=== PATIENT | male | born 1955 | race Caucasian/White ===

== ENCOUNTER 2017-04-19 04:20 | Emergency (ER) | payer BC, OTHER ==
[2017-04-19] MEDS ORDERED: RX INFO: IV CONTRAST WAS GIVEN 1 EACH MISC MISCELLANE PRN (05:27)
[2017-04-19] MEDS ORDERED: IBUPROFEN 400 MG TAB PO STA (05:40)
--- NOTE | 2017-04-19 05:42 | XR ---
EXAM: XR Right Knee, 3 views CLINICAL HISTORY: Reason: Pain TECHNIQUE: Three views of the right knee. COMPARISON: No relevant prior studies available. FINDINGS: Bones/joints: Unremarkable. No acute fracture. No dislocation. Soft tissues: Unremarkable. IMPRESSION: Normal right knee x-rays.
[2017-04-19 05:46] LABS: Basophils % (A) 1 %; CH 30.2; CHCM 33.9; Eosinophils # (A) 0.3 k/uL (0-0.7); Eosinophils % (A) 4 %; HCT 42.9 % (39.0-53.0); HDW 2.84; HGB 15.1 gm/dL (13.0-17.5); Luc # (Auto) 0.14; Luc % (Auto) 2; Lymphocytes # (A) 1.2 k/uL (1.0-4.8); Lymphocytes % (A) 18 %; MCH 31.5 pg (25.0-35.0); MCHC 35.1 g/dL (31.0-37.0); MCV 89.6 fL (80.0-100.0); Mean Platelet Volume 7.9; Monocytes # (A) 0.5 k/uL (0-1.0); Monocytes % (A) 7 %; Neutrophils # (A) 4.4 k/uL (1.3-7.7); Neutrophils % (A) 68 %; RBC 4.79 m/uL (4.30-5.90); RDW 13.8 % (11.5-15.5); WBC 6.5 k/uL (3.8-10.6); WBC (Perox) 6.37
--- NOTE | 2017-04-19 05:49 | XR ---
EXAM: XR Lumbar Spine, 2 or 3 Views CLINICAL HISTORY: Reason: Pain TECHNIQUE: Frontal and lateral views of the lumbar spine. COMPARISON: 07/12/2015. FINDINGS: There is no evidence of an acute compression fracture. The vertebral bodies appear intact. Loss of height at the L4-L5 and L5-S1 intervertebral disc spaces is again seen with vacuum phenomenon, essentially unchanged. Previously noted anterolisthesis of L4 on L5 on the prior study is not evident on this study. Sclerosis and hypertrophic changes involve the posterior facets throughout the lower lumbar spine and lumbosacral junction. Multiple syndesmophytes are again also seen projecting anteriorly throughout the lumbar spine, interval worsening since prior study. DISH would be included in the differential. IMPRESSION: 1. No evidence of acute injury. 2. Loss of height and vacuum phenomenon is again seen at L4-L5 and L5-S1. 3. Previously seen anterolisthesis of L4 on L5 is not evident on this study. 4. Multiple syndesmophytes projecting anteriorly throughout the lumbar spine, interval worsening since prior study. DISH would be included in the differential.
--- NOTE | 2017-04-19 05:53 | XR ---
EXAM: XR Right Wrist Complete, 3 or More Views CLINICAL HISTORY: Reason: Pain TECHNIQUE: Frontal, lateral and oblique views of the right wrist. COMPARISON: No relevant prior studies available. FINDINGS: Bones/joints: 2 tiny ossified lesions are seen adjacent to the ulnar styloid process, likely representing prior ulnar styloid fractures. No acute fracture. No dislocation. Mild degenerative changes are seen at the radiocarpal joint. Soft tissues: Mild overlying soft tissue swelling is suggested. No radiopaque foreign body. IMPRESSION: No evidence of acute osseous injury. Mild overlying soft tissue swelling suggested. Other chronic findings, as above.
[2017-04-19 05:59] LABS: Anion Gap 9 mmol/L; Blood Urea Nitrogen 14 mg/dL (9-20); Calcium 8.6 mg/dL (8.4-10.2); Carbon Dioxide 24 mmol/L (22-30); Chloride 106 mmol/L (98-107); Glucose 114 mg/dL (74-99); Non-African American GFR(MDRD) >60 (>60 ml/min/1.73 sqM); Potassium 4.3 mmol/L (3.5-5.1); Sodium 139 mmol/L (137-145)
--- NOTE | 2017-04-19 07:52 | CT ---
EXAMINATION TYPE: CT abdomen pelvis w con DATE OF EXAM: 04/19/2017 COMPARISON: NONE HISTORY: Fall and right groin pain. Back pain. History of appendectomy and cholecystectomy. CT DLP: 2726.9 mGycm Automated exposure control for dose reduction was used. TECHNIQUE: Helical acquisition of images was performed from the lung bases through the pelvis. CONTRAST: Performed without Oral Contrast and with IV Contrast, patient injected with 100 mL mL of Omnipaque 30 0. FINDINGS: LUNG BASES: Subsegmental bibasilar atelectasis is present. LIVER/GB: Gallbladder is surgically absent. PANCREAS: Fat stranding is seen around the root of the mesentery, celiac axis, and to a lesser degree around the pancreas.. SPLEEN: Spleen is enlarged measuring 20.1 cm in anterior posterior dimension. ADRENALS: No significant abnormality is seen. KIDNEYS: 1.3 cm right midpole renal cyst, exophytic right upper pole 1.3 cm low-density renal cyst ve rsus angiomyolipoma, and right lower pole 8 mm lesion that is too small to accurately characterize ar e seen. Left 9 mm renal lesion is also too small to accurately characterize although suggestive of a cyst as is a low density midpole lesion on the left. FREE AIR: No free air is visualized. ABDOMINAL ADENOPATHY: Single prominent pericaval lymph node is present without pathologic enlargemen t. REPRODUCTIVE ORGANS: No significant abnormality is seen URINARY BLADDER: No significant abnormality is seen. PELVIC ADENOPATHY: None visualized. OSSEOUS STRUCTURES: No suspicious abnormality is seen. Degenerative changes are seen of the thoracol umbar and lumbosacral spine. BOWEL: Gastric lap band is seen at the gastric fundus. Mild fat stranding is seen around the ascendi ng colon, cecum, and ascending colon thickening both lateral conal fascia. Bilateral fat filled ingui nal hernias are seen with low-lying bowel in the right lower quadrant. No discrete bowel wall thicken ing is seen of the descending colon, however bowel wall thickening of the cecum and ascending colon a re noted. Moderate amount of retained stool are seen. Bowel is unenlarged. IMPRESSION: 1. MULTIFOCAL PERICOLONIC FAT STRANDING WITH THICKENING OF THE CECAL AND ASCENDING COLONIC VIDALES. FIN DINGS ARE MOST SUGGESTIVE OF MULTIFOCAL INFECTIOUS/INFLAMMATORY COLITIS, MILD IN DEGREE WITH NO ASSOC IATED COLONIC ILEUS OR OBSTRUCTION. 2. FAT STRANDING AROUND THE ROOT OF THE MESENTERY EXTENDING TOWARDS THE PANCREAS LIKELY RELATES TO ME SENTERIC CONGESTION, HOWEVER CORRELATION WITH PANCREATIC ENZYMES IS RECOMMENDED TO EXCLUDE A MILD DIXON CREATITIS. 3. SPLENOMEGALY.
--- NOTE | 2017-04-19 08:09 | ED ---
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, by bystander Place Fall Occurred: work Loss of Consciousness: none Prolonged Down Time?: no Symptoms Prior to Fall: none Location: back, pelvis, genitals Location - Extremities: Right: Knee Severity: moderate Quality: aching Context: tripped/slipped Associated Symptoms: denies <Margarito Martinez - Last Filed: 04/19/17 08:06> <Lenard Martell - Last Filed: 04/19/17 10:04> - General Chief Complaint: Fall Stated Complaint: [facility]-fall knee,back,wrist,testicle Time Seen by Provider: 04/19/17 04:33 - History of Present Illness Initial Comments: This patient is a 62-year-old man who states that he was working approximately an hour ago when he slipped and fell on a platform. The patient struck the anterior aspect of his right knee, also the wrist, and he has pain to the right back and pelvis area including the right hemiscrotum. The patient denies injury to his head or neck. There was no loss of consciousness. He is not having any neurologic type symptoms. There were no symptoms preceding the fall. He did not have chest pain, palpitations, dyspnea, diaphoresis. Patient states that he slipped. (Margarito Martinez) - Related Data Home Medications Medication Instructions Recorded Confirmed Aspirin [Adult Low Dose Aspirin EC] 81 mg PO HS 04/19/17 04/19/17 Gabapentin [Neurontin] 400 mg PO HS 04/19/17 04/19/17 Losartan Potassium [Cozaar] 50 mg PO HS 04/19/17 04/19/17 Previous Rx's Medication Instructions Recorded Cyclobenzaprine [Flexeril] 10 mg PO TID #14 tab 04/19/17 Ibuprofen 800 mg PO Q6HR PRN #20 tablet 04/19/17 Allergies Allergy/AdvReac Type Severity Reaction Status Date / Time No Known Allergies Allergy Verified 04/19/17 07:48 Review of Systems ROS Other: All systems not noted in ROS Statement are negative. Constitutional: Denies: fever, chills, weakness Eyes: Denies: vision change Respiratory: Denies: cough, dyspnea Cardiovascular: Denies: chest pain, syncope Gastrointestinal: Reports: as per HPI, abdominal pain. Denies: nausea, vomiting Genitourinary: Reports: testicular pain. Denies: dysuria, hematuria Musculoskeletal: Reports: back pain Skin: Denies: rash Neurological: Denies: headache, weakness, numbness, paresthesias <Margarito Martinez - Last Filed: 04/19/17 08:06> ROS Other: All systems not noted in ROS Statement are negative. <JasbirLenard - Last Filed: 04/19/17 10:04> ROS Statement: Those systems with pertinent positive or pertinent negative responses have been documented in the HPI. Past Medical History Past Medical History: Hypertension, Osteoarthritis (OA), Sleep Apnea/CPAP/BIPAP Additional Past Medical History / Comment(s): chronic back pain, wound to L foot , cellutitis multiple times in LLE History of Any Multi-Drug Resistant Organisms: None Reported Past Surgical History: Appendectomy, Back Surgery Additional Past Surgical History / Comment(s): finger surgery, carpal tunnel surgery, L KNEE REPLACEMENT 2010 Past Anesthesia/Blood Transfusion Reactions: No Reported Reaction Past Psychological History: No Psychological Hx Reported Smoking Status: Former smoker Past Alcohol Use History: Rare Past Drug Use History: None Reported - Past Family History Mother Family Medical History: Coronary Artery Disease (CAD), Diabetes Mellitus Father Family Medical History: Coronary Artery Disease (CAD) Brother(s) Family Medical History: Coronary Artery Disease (CAD) <Margarito Martinez - Last Filed: 04/19/17 08:06> General Exam Limitations: no limitations General appearance: alert, in no apparent distress, obese Head exam: Present: atraumatic, normocephalic Eye exam: Present: normal appearance. Absent: scleral icterus, conjunctival injection Neck exam: Present: normal inspection, full ROM. Absent: tenderness Respiratory exam: Present: normal lung sounds bilaterally. Absent: respiratory distress, wheezes, rales, rhonchi, stridor, chest wall tenderness Cardiovascular Exam: Present: regular rate, normal rhythm, normal heart sounds. Absent: systolic murmur, diastolic murmur, rubs, gallop GI/Abdominal exam: Present: soft, tenderness. Absent: distended, guarding, rebound exam: Present: normal inspection, testicular tenderness (Right) External exam: Present: normal external exam Extremities exam: Present: normal inspection, normal capillary refill. Absent: pedal edema, calf tenderness Back exam: Present: normal inspection, paraspinal tenderness, vertebral tenderness. Absent: CVA tenderness (R), CVA tenderness (L) Neurological exam: Present: alert. Absent: motor sensory deficit Skin exam: Present: warm, dry, intact, abrasion (Anterior aspect right knee). Absent: rash <Margarito Martinez - Last Filed: 04/19/17 08:06> Medical Decision Making - Lab Data Result diagrams: 04/19/17 05:30 04/19/17 05:30 <Margarito Martinez - Last Filed: 04/19/17 08:06> - Lab Data Result diagrams: 04/19/17 05:30 04/19/17 05:30 - Radiology Data Radiology results: report reviewed (I did review the imaging and reports no acute findings the ultrasound of the scrotum shows a small hydrocele bilaterally as well as some scrotal edema otherwise unremarkable.), image reviewed <Lenard Martell - Last Filed: 04/19/17 10:04> - Medical Decision Making I did discuss findings with the patient and his . Patient will be discharged his last tetanus shot was 1989 he will get an update today. (Lenard Martell) - Lab Data Lab Results 04/19/17 04/19/17 Range/Units 05:30 05:30 WBC 6.5 (3.8-10.6) k/uL RBC 4.79 (4.30-5.90) m/uL Hgb 15.1 (13.0-17.5) gm/dL Hct 42.9 (39.0-53.0) % MCV 89.6 (80.0-100.0) fL MCH 31.5 (25.0-35.0) pg MCHC 35.1 (31.0-37.0) g/dL RDW 13.8 (11.5-15.5) % Plt Count 108 L (150-450) k/uL Neutrophils % 68 % Lymphocytes % 18 % Monocytes % 7 % Eosinophils % 4 % Basophils % 1 % Neutrophils # 4.4 (1.3-7.7) k/uL Lymphocytes # 1.2 (1.0-4.8) k/uL Monocytes # 0.5 (0-1.0) k/uL Eosinophils # 0.3 (0-0.7) k/uL Basophils # 0.0 (0-0.2) k/uL Sodium 139 (137-145) mmol/L Potassium 4.3 (3.5-5.1) mmol/L Chloride 106 (98-107) mmol/L Carbon Dioxide 24 (22-30) mmol/L Anion Gap 9 mmol/L BUN 14 (9-20) mg/dL Creatinine 0.89 (0.66-1.25) mg/dL Est GFR (MDRD) Af Amer >60 (>60 ml/min/1.73 sqM) Est GFR (MDRD) Non-Af >60 (>60 ml/min/1.73 sqM) Glucose 114 H (74-99) mg/dL Calcium 8.6 (8.4-10.2) mg/dL Disposition <Margarito Martinez - Last Filed: 04/19/17 08:06> <Lenard Martell - Last Filed: 04/19/17 10:04> Clinical Impression: Fall, Contusion of scrotum, Abrasion of knee, right, Back strain Disposition: HOME SELF-CARE Condition: Good Instructions: Abrasion (ED), Contusion in Adults (ED), Low Back Strain (ED) Prescriptions: Cyclobenzaprine [Flexeril] 10 mg PO TID #14 tab Ibuprofen 800 mg PO Q6HR PRN #20 tablet PRN Reason: Pain Referrals: Roseanne Maxwell MD [Primary Care Provider] - 1-2 days
--- NOTE | 2017-04-19 09:49 | US ---
EXAMINATION TYPE: US scrotum with doppler. Grayscale and color Doppler Duplex imaging performed of t he scrotum. DATE OF EXAM: 04/19/2017 COMPARISON: NONE CLINICAL HISTORY: Pain, right hemiscrotum. EXAM MEASUREMENTS: TESTICLES: Right Testicle: 3.6 x 4.2 x 2.5 cm Left Testicle: 4.6 x 2.9 x 3.0 cm cm EPIDIDYMIS HEAD: Right Epididymis: 0.9x 0.8 x0.6 cm Left Epididymis: 1.1 x 0.8 x 0.7 cm Doppler performed to assess for testicular vascularity; good bilateral color flow and waveforms are s een. There is no evidence of testicular torsion. Presence of hydroceles: yes Presence of varicoceles: Increased flow on valsalva on the right. Large scrotum bilaterally with edematous tissue. IMPRESSION: 1. No sonographic evidence of testicular torsion at the time of the examination. 2. Bilateral small hydroceles and scrotal edema. 3. Right-sided varicocele.
[2017-04-19] MEDS ORDERED: DIPH,PERTUS(ACELL)TETVAC-LF 0.5 ML VIAL IM ONE (09:58)
[2017-04-19 10:16] VITALS: BP 151/73; PULSE 82; RESP 14; TEMP 97.2
== END 2017-04-19 10:32 | disposition home or self-care (01) ==
LOC: EC 04:20
DX: S39.012A Strain of muscle, fascia and tendon of lower back, initial encounter (principal); S30.22XA Contusion of scrotum and testes, initial encounter; S80.211A Abrasion, right knee, initial encounter; I10 Essential (primary) hypertension; M19.90 Unspecified osteoarthritis, unspecified site; Z87.891 Personal history of nicotine dependence; Z23 Encounter for immunization; Z79.82 Long term (current) use of aspirin; Z79.899 Other long term (current) drug therapy; W01.10XA Fall on same level from slipping, tripping and stumbling with subsequent striking against unspecified object, initial encounter; Y92.89 Other specified places as the place of occurrence of the external cause; Y99.0 Civilian activity done for income or pay
CPT/HCPCS: 99284; 90471; 36415; 80048; 85025; 72100; 73110; 73562; 93975; 76870; 74177; 90715; Q9967

== ENCOUNTER 2018-09-14 15:56 | Inpatient (IN) | payer BC, OTHER ==
[2018-09-14] MEDS ORDERED: SODIUM CHLORIDE 0.9% 500 ML 500 ML IV STA (17:55)
[2018-09-14] MEDS ORDERED: IPRATROPIUM-ALBUTEROL 3 ML NEB INHALATION STA (17:58)
--- NOTE | 2018-09-14 18:11 | ED ---
General Adult HPI - General Chief complaint: Recheck/Abnormal Lab/Rx Stated complaint: Lap ban surgery complications, SOB Time Seen by Provider: 09/14/18 17:46 Source: patient, RN notes reviewed Mode of arrival: ambulatory Limitations: no limitations - History of Present Illness Initial comments: 63-year-old male with a past medical history of diabetes, hypertension, osteoarthritis, sleep apnea, chronic cellulitis in the left lower extremity presents to the emergency department for a chief complaint of shortness of breath 3 days. Patient states he has had a cough for over a week now. He states it is nonproductive. Patient denies history of COPD, states he has not smoked since he was a teenager. Patient states he saw his primary care provider who had him do breathing treatments. He states he is not getting better. Patient states he feels as if he is gasping for air. Today he states he coughed so hard he felt a pain in his left upper quadrant. Patient is concerned he had a lap band break or slipped. He states he still does have some pain in the left upper quadrant. Patient denies any chest pain. Patient has no other complaints at this time including chest pain, abdominal pain, nausea or vomiting, headache, or visual changes. - Related Data Home Medications Medication Instructions Recorded Confirmed Aspirin [Adult Low Dose Aspirin EC] 81 mg PO HS 04/19/17 09/14/18 Gabapentin [Neurontin] 400 mg PO QID 04/19/17 09/15/18 Losartan Potassium [Cozaar] 50 mg PO HS 04/19/17 09/14/18 Albuterol Nebulized [Ventolin 2.5 mg INHALATION RT-TID PRN 09/14/18 09/14/18 Nebulized] Atorvastatin [Lipitor] 20 mg PO DAILY 09/14/18 09/14/18 Azithromycin [Zithromax Z-pack] See Taper PO DAILY 09/14/18 09/14/18 metFORMIN HCL [metFORMIN HCL ER] 750 mg PO HS 09/14/18 09/14/18 predniSONE 20 mg PO DAILY 09/14/18 09/14/18 Allergies Allergy/AdvReac Type Severity Reaction Status Date / Time No Known Allergies Allergy Verified 09/14/18 18:41 Review of Systems ROS Statement: Those systems with pertinent positive or pertinent negative responses have been documented in the HPI. ROS Other: All systems not noted in ROS Statement are negative. Past Medical History Past Medical History: Diabetes Mellitus, Hypertension, Osteoarthritis (OA), Sleep Apnea/CPAP/BIPAP Additional Past Medical History / Comment(s): chronic back pain, wound to L foot , cellutitis multiple times in LLE History of Any Multi-Drug Resistant Organisms: None Reported Past Surgical History: Appendectomy, Back Surgery, Cholecystectomy Additional Past Surgical History / Comment(s): finger surgery, carpal tunnel surgery, L KNEE REPLACEMENT 2010, lap band Past Anesthesia/Blood Transfusion Reactions: No Reported Reaction Past Psychological History: No Psychological Hx Reported Smoking Status: Never smoker Past Alcohol Use History: Rare Past Drug Use History: None Reported - Past Family History Mother Family Medical History: Coronary Artery Disease (CAD), Diabetes Mellitus Father Family Medical History: Coronary Artery Disease (CAD) Brother(s) Family Medical History: Coronary Artery Disease (CAD) General Exam Limitations: no limitations General appearance: alert, in no apparent distress Head exam: Present: atraumatic, normocephalic, normal inspection Eye exam: Present: normal appearance, PERRL, EOMI. Absent: scleral icterus, conjunctival injection, periorbital swelling ENT exam: Present: normal exam, mucous membranes moist Neck exam: Present: normal inspection, full ROM. Absent: tenderness, meningismus, lymphadenopathy Respiratory exam: Present: normal lung sounds bilaterally. Absent: respiratory distress, wheezes (no significant wheezing noted), rales, rhonchi, stridor Cardiovascular Exam: Present: regular rate, normal rhythm, normal heart sounds. Absent: systolic murmur, diastolic murmur, rubs, gallop, clicks GI/Abdominal exam: Present: soft, normal bowel sounds. Absent: distended, tenderness, guarding, rebound, rigid Neurological exam: Present: alert, oriented X3, CN II-XII intact Psychiatric exam: Present: normal affect, normal mood Course Vital Signs 09/14/18 09/14/18 09/14/18 16:07 17:30 18:47 Temperature 98.2 F Pulse Rate 83 82 Respiratory 18 20 Rate Blood Pressure 154/67 O2 Sat by Pulse 93 L Oximetry 09/14/18 09/14/18 19:00 20:18 Temperature Pulse Rate 78 77 Respiratory 20 18 Rate Blood Pressure 118/87 107/67 O2 Sat by Pulse 96 96 Oximetry - Reevaluation(s) Reevaluation #1: 09/14/18 20:00 called on d dimer as result is not back Medical Decision Making - Medical Decision Making 63-year-old male with a past medical history of diabetes, hypertension, sleep apnea chronic cellulitis presents for shortness of breath 3 days. Patient has had a cough for over a week now. No history of COPD at this time. Feels as if he is gasping for air. On exam patient does appear short of breath, requiring 2 L of O2 nasal cannula. CBC CMP unremarkable. Troponin negative. Chest x- ray shows interstitial pulmonary infiltrates which are increased compared to the old exam. No heart failure seen. CT chest showed no evidence of pulmonary embolism however patchy infiltrate at the lung bases, worse on the right. Patient very concerned about lap band stay he has left upper quadrant pain. CT abdomen and pelvis did show the lap band without free air. Hiatal hernia noted. Patient given breathing treatment here in the emergency department which did not help his symptoms. Patient also already completed a Z-Rhett earlier this week. Dr. Penn also saw the patient who agrees with inpatient admission at this time. Patient will be admitted for pneumonia with IV antibiotics, steroids, scheduled breathing treatments. - Lab Data Result diagrams: 09/14/18 18:35 09/14/18 18:35 Lab Results 09/14/18 09/14/18 09/14/18 Range/Units 18:35 18:35 18:35 WBC 7.3 (3.8-10.6) k/uL RBC 4.58 (4.30-5.90) m/uL Hgb 13.8 (13.0-17.5) gm/dL Hct 41.3 (39.0-53.0) % MCV 90.3 (80.0-100.0) fL MCH 30.1 (25.0-35.0) pg MCHC 33.3 (31.0-37.0) g/dL RDW 13.7 (11.5-15.5) % Plt Count 128 L (150-450) k/uL Neutrophils % 71 % Lymphocytes % 14 % Monocytes % 9 % Eosinophils % 4 % Basophils % 1 % Neutrophils # 5.2 (1.3-7.7) k/uL Lymphocytes # 1.0 (1.0-4.8) k/uL Monocytes # 0.7 (0-1.0) k/uL Eosinophils # 0.3 (0-0.7) k/uL Basophils # 0.0 (0-0.2) k/uL PT (9.0-12.0) sec INR (<1.2) APTT (22.0-30.0) sec D-Dimer (<0.60) mg/L FEU Sodium 141 (137-145) mmol/L Potassium 4.5 (3.5-5.1) mmol/L Chloride 110 H (98-107) mmol/L Carbon Dioxide 25 (22-30) mmol/L Anion Gap 6 mmol/L BUN 18 (9-20) mg/dL Creatinine 0.71 (0.66-1.25) mg/dL Est GFR (CKD-EPI)AfAm >90 (>60 ml/min/1.73 sqM) Est GFR (CKD-EPI)NonAf >90 (>60 ml/min/1.73 sqM) Glucose 144 H (74-99) mg/dL Plasma Lactic Acid Prasanna (0.7-2.0) mmol/L Calcium 8.9 (8.4-10.2) mg/dL Magnesium (1.6-2.3) mg/dL Total Bilirubin 0.6 (0.2-1.3) mg/dL AST 40 (17-59) U/L ALT 30 (21-72) U/L Alkaline Phosphatase 78 (38-126) U/L Total Creatine Kinase 770 H (55-170) U/L CK-MB (CK-2) 1.3 (0.0-2.4) ng/mL CK-MB (CK-2) Rel Index 0.2 Troponin I <0.012 (0.000-0.034) ng/mL NT-Pro-B Natriuret Pep pg/mL Total Protein 6.3 (6.3-8.2) g/dL Albumin 3.3 L (3.5-5.0) g/dL 09/14/18 09/14/18 09/14/18 Range/Units 18:35 18:35 18:35 WBC (3.8-10.6) k/uL RBC (4.30-5.90) m/uL Hgb (13.0-17.5) gm/dL Hct (39.0-53.0) % MCV (80.0-100.0) fL MCH (25.0-35.0) pg MCHC (31.0-37.0) g/dL RDW (11.5-15.5) % Plt Count (150-450) k/uL Neutrophils % % Lymphocytes % % Monocytes % % Eosinophils % % Basophils % % Neutrophils # (1.3-7.7) k/uL Lymphocytes # (1.0-4.8) k/uL Monocytes # (0-1.0) k/uL Eosinophils # (0-0.7) k/uL Basophils # (0-0.2) k/uL PT 11.9 (9.0-12.0) sec INR 1.1 (<1.2) APTT 23.7 (22.0-30.0) sec D-Dimer 0.91 H (<0.60) mg/L FEU Sodium (137-145) mmol/L Potassium (3.5-5.1) mmol/L Chloride (98-107) mmol/L Carbon Dioxide (22-30) mmol/L Anion Gap mmol/L BUN (9-20) mg/dL Creatinine (0.66-1.25) mg/dL Est GFR (CKD-EPI)AfAm (>60 ml/min/1.73 sqM) Est GFR (CKD-EPI)NonAf (>60 ml/min/1.73 sqM) Glucose (74-99) mg/dL Plasma Lactic Acid Prasanna (0.7-2.0) mmol/L Calcium (8.4-10.2) mg/dL Magnesium 2.0 (1.6-2.3) mg/dL Total Bilirubin (0.2-1.3) mg/dL AST (17-59) U/L ALT (21-72) U/L Alkaline Phosphatase (38-126) U/L Total Creatine Kinase (55-170) U/L CK-MB (CK-2) (0.0-2.4) ng/mL CK-MB (CK-2) Rel Index Troponin I (0.000-0.034) ng/mL NT-Pro-B Natriuret Pep 91 pg/mL Total Protein (6.3-8.2) g/dL Albumin (3.5-5.0) g/dL 09/14/18 Range/Units 18:35 WBC (3.8-10.6) k/uL RBC (4.30-5.90) m/uL Hgb (13.0-17.5) gm/dL Hct (39.0-53.0) % MCV (80.0-100.0) fL MCH (25.0-35.0) pg MCHC (31.0-37.0) g/dL RDW (11.5-15.5) % Plt Count (150-450) k/uL Neutrophils % % Lymphocytes % % Monocytes % % Eosinophils % % Basophils % % Neutrophils # (1.3-7.7) k/uL Lymphocytes # (1.0-4.8) k/uL Monocytes # (0-1.0) k/uL Eosinophils # (0-0.7) k/uL Basophils # (0-0.2) k/uL PT (9.0-12.0) sec INR (<1.2) APTT (22.0-30.0) sec D-Dimer (<0.60) mg/L FEU Sodium (137-145) mmol/L Potassium (3.5-5.1) mmol/L Chloride (98-107) mmol/L Carbon Dioxide (22-30) mmol/L Anion Gap mmol/L BUN (9-20) mg/dL Creatinine (0.66-1.25) mg/dL Est GFR (CKD-EPI)AfAm (>60 ml/min/1.73 sqM) Est GFR (CKD-EPI)NonAf (>60 ml/min/1.73 sqM) Glucose (74-99) mg/dL Plasma Lactic Acid Prasanna 1.6 (0.7-2.0) mmol/L Calcium (8.4-10.2) mg/dL Magnesium (1.6-2.3) mg/dL Total Bilirubin (0.2-1.3) mg/dL AST (17-59) U/L ALT (21-72) U/L Alkaline Phosphatase (38-126) U/L Total Creatine Kinase (55-170) U/L CK-MB (CK-2) (0.0-2.4) ng/mL CK-MB (CK-2) Rel Index Troponin I (0.000-0.034) ng/mL NT-Pro-B Natriuret Pep pg/mL Total Protein (6.3-8.2) g/dL Albumin (3.5-5.0) g/dL Disposition Clinical Impression: Shortness of breath, Pneumonia Disposition: ADMITTED IP TO THIS HOSP Condition: Good Is patient prescribed a controlled substance at d/c from ED?: No Time of Disposition: 22:11
[2018-09-14 19:05] LABS: ALT 30 U/L (21-72); AST 40 U/L (17-59); Albumin 3.3 g/dL (3.5-5.0); Alkaline Phosphatase 78 U/L (38-126); Anion Gap 6 mmol/L; Blood Urea Nitrogen 18 mg/dL (9-20); Calcium 8.9 mg/dL (8.4-10.2); Carbon Dioxide 25 mmol/L (22-30); Chloride 110 mmol/L (98-107); Creatine Kinase 770 U/L (55-170); Glucose 144 mg/dL (74-99); Potassium 4.5 mmol/L (3.5-5.1); Sodium 141 mmol/L (137-145); Total Bilirubin 0.6 mg/dL (0.2-1.3); Total Protein 6.3 g/dL (6.3-8.2)
[2018-09-14 19:17] LABS: Creatine Kinase MB 1.3 ng/mL (0.0-2.4); Troponin I <0.012 ng/mL (0.000-0.034)
[2018-09-14 19:24] LABS: Basophils % (A) 1 %; Eosinophils # (A) 0.3 k/uL (0-0.7); Eosinophils % (A) 4 %; HCT 41.3 % (39.0-53.0); HGB 13.8 gm/dL (13.0-17.5); Lymphocytes % (A) 14 %; MCH 30.1 pg (25.0-35.0); MCHC 33.3 g/dL (31.0-37.0); MCV 90.3 fL (80.0-100.0); Mean Platelet Volume 7.8; Monocytes # (A) 0.7 k/uL (0-1.0); Monocytes % (A) 9 %; Neutrophils # (A) 5.2 k/uL (1.3-7.7); Neutrophils % (A) 71 %; Platelet Count 128 k/uL (150-450); RBC 4.58 m/uL (4.30-5.90); RDW 13.7 % (11.5-15.5); WBC 7.3 k/uL (3.8-10.6)
[2018-09-14 19:38] LABS: INR 1.1 (<1.2); Partial Thromboplastin Time 23.7 sec (22.0-30.0); Prothrombin Time 11.9 sec (9.0-12.0)
--- NOTE | 2018-09-14 20:03 | XR ---
EXAMINATION TYPE: XR chest 2V DATE OF EXAM: 09/14/2018 COMPARISON: 07/25/2015 HISTORY: Short of breath and cough TECHNIQUE: Frontal and lateral views of the chest are obtained. FINDINGS: There is coarsening of the interstitial markings. There is no heart failure. Heart size is normal. Costophrenic angles are clear. Bony thorax is intact. IMPRESSION: Interstitial pulmonary infiltrates are increased compared to old exam. This could relate to pulmonary fibrosis. No heart failure seen.
[2018-09-14 20:29] LABS: D-Dimer 0.91 mg/L FEU (<0.60)
--- NOTE | 2018-09-14 21:11 | CT ---
EXAMINATION TYPE: CT chest angio for PE DATE OF EXAM: 09/14/2018 COMPARISON: None HISTORY: Cough and SOB x1 week. CT DLP: 873.8 mGycm Automated exposure control for dose reduction was used. CONTRAST: CT Chest for pulmonary embolism performed with with IV Contrast, patient injected with 100ml mL of Is ovue 370. There are 3-D post processed images. FINDINGS: There is no mediastinal adenopathy. There are a few paratracheal and mediastinal lymph nodes and santosh ure up to 1 cm. Thoracic aorta is intact without evidence of aneurysm or dissection. There are right peribronchial lymph nodes up to 1 cm. Heart is top normal in size. There is no pericardial effusion. There is some patchy atelectasis and infiltrate at the posterior lung bases. There is normal contrast opacification of the pulmonary arteries. I see no filling defect. There is h ypertrophic spurring in the thoracic spine. I see no bony destructive process. There is gastric sleev e noted. IMPRESSION: No evidence of pulmonary embolism. Patchy infiltrate and atelectasis at the lung bases and more on th e right side.
--- NOTE | 2018-09-14 21:18 | CT ---
EXAMINATION TYPE: CT abdomen pelvis w con DATE OF EXAM: 09/14/2018 COMPARISON: 04/19/2017 HISTORY: Cough and SOB x1 week. Pt has history of land band and thinks it snapped due to coughing. CT DLP: 1691 mGycm Automated exposure control for dose reduction was used. TECHNIQUE: Helical acquisition of images was performed from the lung bases through the pelvis. CONTRAST: Performed without Oral Contrast and with IV Contrast, patient injected with 100ml mL of Isovue 370. FINDINGS: There is some patchy atelectasis at the lung bases. Heart is slightly enlarged. There is gastric slee ve noted. Catheter appears intact. There is no pancreatic mass. Liver shows no focal defect. Bile tylor ts are not dilated. There are clips from cholecystectomy. Exam is limited by the patient's size. Ther e is no adrenal mass. Spleen is enlarged and measures 20 cm. There is no evidence of pancreatic mass. There is multilevel spondylotic change in the lumbar spine with degenerative bridging osteophyte form ation. No compression fracture seen. There is no adrenal mass. Kidneys show satisfactory contrast opacification. There are multiple small cysts in both kidneys that measure up to 1.5 cm. There is no hydronephrosis. Bladder distends smoothl y. There is prosthetic calcification. There is no inguinal hernia. There is no free fluid in the pelv is. There is no evidence of a bowel obstruction. There is no mesenteric edema or adenopathy. I see no sign of free air. Appendix is not definitely seen. There is no sign of a thickened appendix. IMPRESSION: SPLENOMEGALY. MILD INFILTRATES AND ATELECTASIS AT THE LUNG BASES. HIATAL HERNIA. GASTRIC SLEEVE NOTED . NO FREE AIR. INFILTRATES AT THE LUNG BASES APPEAR NEW COMPARED TO OLD EXAM. SPLENOMEGALY UNCHANGED.
[2018-09-14] MEDS ORDERED: LEVOFLOXACIN 750MG-D5W PMX 750 MG in DEXTROSE/WATER 1 150ML.BAG IVPB STA (22:09)
[2018-09-14] MEDS: methylPREDNISolone SOD SUCCI 125 MG/2 ML VIAL IV SCH (23:16)
[2018-09-15 00:42] LABS: Glucose,Whole Blood 148 mg/dL (75-99)
[2018-09-15] MEDS ORDERED: IPRATROPIUM-ALBUTEROL 3 ML NEB INHALATION PRN (01:23)
[2018-09-15] MEDS ORDERED: ACETAMINOPHEN TAB 325 MG TAB PO PRN (01:23)
[2018-09-15] MEDS ORDERED: traMADol 50 MG TAB PO PRN (01:24)
[2018-09-15] MEDS: LOSARTAN 50 MG TAB PO SCH ×2 (01:48→21:06)
[2018-09-15] MEDS: ASPIRIN 81 MG PO SCH ×2 (01:48→21:05)
[2018-09-15] MEDS: metFORMIN 500 MG TAB PO SCH ×2 (01:48→21:06)
[2018-09-15] MEDS: GABAPENTIN 400 MG CAP PO SCH ×5 (01:48→21:06)
[2018-09-15] MEDS: methylPREDNISolone SOD SUCCI 125 MG/2 ML VIAL IV SCH ×2 (06:18→11:52)
[2018-09-15] MEDS: IPRATROPIUM-ALBUTEROL 3 ML NEB INHALATION SCH ×4 (07:07→20:12)
[2018-09-15 07:40] LABS: Glucose,Whole Blood 195 mg/dL (75-99)
[2018-09-15] MEDS: INSULIN ASPART 100 UNIT/ML 1 ML 10 ML VIAL SQ SCH ×4 (08:14→21:06)
[2018-09-15] MEDS: ATORVASTATIN 20 MG TAB PO SCH (08:15)
[2018-09-15 12:33] LABS: Glucose,Whole Blood 197 mg/dL (75-99)
--- NOTE | 2018-09-15 14:01 | P.HPIM ---
History of Present Illness 63-year-old morbidly obese gentleman with the known history of sleep apnea came in with compensative shortness of breath and an cough patient was initially treated for pneumonia believed to have failed outpatient therapy. All the CAT scan did not show any significant infiltrate. Patient may have bronchitis his most of his symptoms are from his rest of the lung disease and the sleep apnea contributing to his status of breath from simple bronchitis. Patient in the past had lab banding which she never followed up. Patient will benefit from gastric sleeve surgery was asked to follow-up with the neurosurgery as an outpatient. Additionally patient has chronic venous insufficiency and pedal edema secondary to that. Patient doesn't appear to have any CHF exacerbation at this time patient doesn't have any fevers no leukocytosis. Anti-medics will be this can urine patient will probably can use doxycycline if needed patient is only having minimal cough with whitish to yellowish sputum production and patient was started on systemic steroids even the steroids may not be helpful much doesn't have much of wheezing. Patient the smoking as a carotid. Patient mostly has bronchitis testicular disease mild competent of COPD. If patient is doing better tomorrow medical probably can be discharged tomorrow. Dietary counseling was provided and patient will benefit from weight loss surgery. Review of Systems REVIEW OF SYSTEMS: CONSTITUTIONAL: No fever, no malaise, no fatigue. HEENT: No recent visual problems or hearing problems. Denied any sore throat. CARDIOVASCULAR: No chest pain, orthopnea, PND, no palpitations, no syncope. PULMONARY: no hemoptysis. GASTROINTESTINAL: No diarrhea, no nausea, no vomiting, no abdominal pain. NEUROLOGICAL: No headaches, no weakness, no numbness. HEMATOLOGICAL: Denies any bleeding or petechiae. GENITOURINARY: Denies any burning micturition, frequency, or urgency. MUSCULOSKELETAL/RHEUMATOLOGICAL: Denies any joint pain, swelling, or any muscle pain. ENDOCRINE: Denies any polyuria or polydipsia. The rest of the 14-point review of systems is negative. Past Medical History Past Medical History: Diabetes Mellitus, Hypertension, Osteoarthritis (OA), Sleep Apnea/CPAP/BIPAP Additional Past Medical History / Comment(s): chronic back pain, wound to L foot , cellutitis multiple times in LLE History of Any Multi-Drug Resistant Organisms: None Reported Past Surgical History: Appendectomy, Back Surgery, Cholecystectomy Additional Past Surgical History / Comment(s): finger surgery, carpal tunnel surgery, L KNEE REPLACEMENT 2010, lap band Past Anesthesia/Blood Transfusion Reactions: No Reported Reaction Past Psychological History: No Psychological Hx Reported Smoking Status: Never smoker Past Alcohol Use History: Rare Past Drug Use History: None Reported - Past Family History Mother Family Medical History: Coronary Artery Disease (CAD), Diabetes Mellitus Father Family Medical History: Coronary Artery Disease (CAD) Brother(s) Family Medical History: Coronary Artery Disease (CAD) Medications and Allergies Home Medications Medication Instructions Recorded Confirmed Type Aspirin [Adult Low Dose Aspirin EC] 81 mg PO HS 04/19/17 09/14/18 History Gabapentin [Neurontin] 400 mg PO QID 04/19/17 09/15/18 History Losartan Potassium [Cozaar] 50 mg PO HS 04/19/17 09/14/18 History Albuterol Nebulized [Ventolin 2.5 mg INHALATION RT-TID PRN 09/14/18 09/14/18 History Nebulized] Atorvastatin [Lipitor] 20 mg PO DAILY 09/14/18 09/14/18 History Azithromycin [Zithromax Z-pack] See Taper PO DAILY 09/14/18 09/14/18 History metFORMIN HCL [metFORMIN HCL ER] 750 mg PO HS 09/14/18 09/14/18 History predniSONE 20 mg PO DAILY 09/14/18 09/14/18 History Allergies Allergy/AdvReac Type Severity Reaction Status Date / Time No Known Allergies Allergy Verified 09/14/18 18:41 Physical Exam Vitals: Vital Signs Temp Pulse Pulse Resp BP BP Pulse Ox 09/15/18 11:09 77 09/15/18 10:59 76 09/15/18 07:23 88 09/15/18 07:08 88 09/15/18 07:00 97.9 F 71 18 137/71 90 L 09/15/18 02:42 94 L 09/15/18 01:47 175/84 09/15/18 00:57 98.9 F 70 16 182/79 95 09/15/18 00:12 98.6 F 72 18 112/78 98 09/14/18 20:18 77 18 107/67 96 09/14/18 19:00 78 20 118/87 96 09/14/18 18:47 82 09/14/18 17:30 20 09/14/18 16:07 98.2 F 83 18 154/67 93 L Intake and Output 09/14/18 09/15/18 09/15/18 22:59 06:59 14:59 Other: Voiding Method Toilet Urinal # Voids 4 Weight 151.953 kg PHYSICAL EXAMINATION: GENERAL: The patient is alert and oriented x3, not in any acute distress. Morbidly obese HEENT: Pupils are round and equally reacting to light. EOMI. No scleral icterus. No conjunctival pallor. Normocephalic, atraumatic. No pharyngeal erythema. No thyromegaly. CARDIOVASCULAR: S1 and S2 present. No murmurs, rubs, or gallops. PULMONARY: Chest is clear to auscultation, no wheezing or crackles. ABDOMEN: Soft, nontender, nondistended, normoactive bowel sounds. No palpable organomegaly. MUSCULOSKELETAL: No joint swelling or deformity. EXTREMITIES: No cyanosis, clubbing, bilateral pedal edema with chronic venous stasis dermatosis. NEUROLOGICAL: Gross neurological examination did not reveal any focal deficits. SKIN: No rashes. Results CBC & Chem 7: 09/14/18 18:35 09/14/18 18:35 Labs: Abnormal Lab Results - Last 24 Hours (Table) 09/14/18 09/14/18 09/14/18 Range/Units 18:35 18:35 18:35 Plt Count 128 L (150-450) k/uL D-Dimer (<0.60) mg/L FEU Chloride 110 H (98-107) mmol/L Glucose 144 H (74-99) mg/dL POC Glucose (mg/dL) (75-99) mg/dL Total Creatine Kinase 770 H (55-170) U/L Albumin 3.3 L (3.5-5.0) g/dL 09/14/18 09/15/18 09/15/18 Range/Units 18:35 00:39 07:37 Plt Count (150-450) k/uL D-Dimer 0.91 H (<0.60) mg/L FEU Chloride (98-107) mmol/L Glucose (74-99) mg/dL POC Glucose (mg/dL) 148 H 195 H (75-99) mg/dL Total Creatine Kinase (55-170) U/L Albumin (3.5-5.0) g/dL 09/15/18 Range/Units 12:29 Plt Count (150-450) k/uL D-Dimer (<0.60) mg/L FEU Chloride (98-107) mmol/L Glucose (74-99) mg/dL POC Glucose (mg/dL) 197 H (75-99) mg/dL Total Creatine Kinase (55-170) U/L Albumin (3.5-5.0) g/dL Thrombosis Risk Factor Assmnt - Choose All That Apply Any of the Below Risk Factors Present?: Yes Each Factor Represents 1 point: Obesity (BMI >25) Other Risk Factors: Yes Each Risk Factor Represents 2 Points: Age 61-74 years Thrombosis Risk Factor Assessment Total Risk Factor Score: 3 Thrombosis Risk Factor Assessment Level: Moderate Risk Assessment and Plan Plan: -Shadows of breath: Secondary to arrested lung disease and mild bronchitis there is no evidence of pneumonia may have mild comment of COPD IV steroids will be discontinued which will be counterproductive and will not help in his weight loss. Patient was started on steroids with the shot taper. Probably can be discharged tomorrow we'll get a period of pulmonary as well. -Mild COPD with possible mild acute exacerbation - pedal edema secondary to chronic venous insufficiency symptomatically treatment with Lasix -Morbid obesity with restrictive lung disease, sleep apnea continue CPAP patient patient will benefit from weight loss surgery as mentioned above -Type 2 diabetes mellitus: Since patient is on systemic steroids blood sugars are expected to go up and will treat with as needed insulin -Hypertension
[2018-09-15] MEDS: AZITHROMYCIN 500 MG TAB PO SCH (14:28)
[2018-09-15 16:23] LABS: Hemoglobin A1C 6.5 % (4.0-6.0)
[2018-09-15 17:04] LABS: Glucose,Whole Blood 254 mg/dL (75-99)
--- NOTE | 2018-09-15 18:31 | CONS ---
CONSULTATION PULMONARY CRITICAL CARE CONSULTATION: DATE OF SERVICE: 09/15/2018 This is a 63-year-old obese white male. He has a history of diabetes, hypertension, osteoarthritis, sleep apnea syndrome. He also suffers from chronic lower extremity edema and cellulitis. He presented to the emergency department on September 14 with 3 days' worth of increasing and progressive shortness of breath. In addition, he was coughing and producing a small amount of yellow phlegm. The patient denies a history of underlying chronic lung disease and stated he smoked only for a few years when he was a young teenager. The patient apparently saw his primary care physician and was given a nebulizer machine and doing breathing treatments. Despite that, he has not improved. The patient was apparently evaluated in the emergency room and admitted with a diagnosis of possible pneumonia. His primary doctor is Dr. Maxwell. The patient is feeling a bit better today than he did yesterday. Chest x-ray, labs and medications are all reviewed. Chest x-ray in our opinion shows evidence of pneumonia. HOME MEDICATIONS: Reviewed. They include: 1. Aspirin. 2. Gabapentin. 3. Losartan. 4. Updrafts with albuterol. 5. Lipitor. 6. Zithromax. 7. Metformin. 8. Prednisone. The nebulizer treatments, antibiotic and prednisone were recently given to him by his primary care physician. ALLERGIES: DENIED. MEDICAL HISTORY: Includes: 1. Obesity, which is morbid obesity. 2. Diabetes. 3. Hypertension. 4. DJD. 5. Sleep apnea. On CPAP. 6. Chronic back pain. 7. Chronic cellulitis of the lower extremities. SURGICAL HISTORY: Includes: 1. Appendectomy. 2. Back surgery. 3. Cholecystectomy. 4. Finger surgery. 5. Carpal tunnel surgery. 6. Left knee replacement. 7. He has also had a lap band procedure for obesity. SOCIAL HISTORY: Negative for tobacco use. Drinks socially and rarely. No illicit drug use. FAMILY HISTORY: Positive for diabetes and CAD. REVIEW OF SYSTEMS: CONSTITUTIONAL: Negative. NEUROLOGIC: Negative. HEENT: Negative. CARDIOVASCULAR: Negative. PULMONARY: Shortness of breath, chest congestion, cough and phlegm production. GI/: Negative. RHEUMATOLOGIC/IMMUNOLOGIC: Negative. ENDOCRINOLOGIC: Negative. DERMATOLOGIC: Negative. PHYSICAL EXAMINATION: Current vital signs are reviewed. Temperature is 98.1, heart rate 77, respiratory rate 18, blood pressure 134/72, room-air saturation 93%. Appears in no acute distress. HEENT examination is grossly unremarkable. Mucous membranes are moist. Nasal oxygen in place. NECK: Supple. Full range of motion. No adenopathy or thyromegaly. Neck veins are flat. Cardiovascular examination reveals very distant heart sounds. Heart rate about 75 beats per minute. S1, S2 normal. No distinct murmur noted. LUNGS: Coarse bilateral rhonchi. No wheezes. There are some bibasilar crackles. Breath sounds are diminished. Abdomen is obese. Bowel sounds are heard. Extremities reveal chronic venostasis changes. There is chronic lower extremity edema. There is venostasis noted. SKIN: Without rash other than the pigmentation noted in the lower extremities. Neurologic examination is brief but nonfocal. IMAGING: Chest x-ray was done on September 14. It shows interstitial pulmonary infiltrates. This could relate to pulmonary fibrosis. CT angiogram shows no evidence of pulmonary embolism. The CT shows evidence of patchy bibasilar infiltrates and/or atelectasis at the bases, more so on the right than on the left. Current CT of the abdomen shows splenomegaly, basilar infiltrates/atelectasis, hiatal hernia, gastric sleeve and splenomegaly which is unchanged. LABS: Reviewed. White count 7.3, hemoglobin 13.8, hematocrit 41.3, platelet count 128,000. PT, INR and PTT normal. D-dimer 0.91. Sodium, potassium normal. Chloride 110. CO2 25. BUN and creatinine were 18 and 0.71. CK was 770. Albumin 3.3. Microbiologic studies are negative or pending. Medications are reviewed. Currently the patient is on Zithromax and Rocephin. We also added updrafts with DuoNeb. He does not need any steroids. He was previously on Levaquin. ASSESSMENT: 1. Bibasilar pneumonia. 2. No evidence of intrinsic pulmonary disease. 3. Morbid obesity. 4. Sleep apnea syndrome, currently on CPAP. 5. History of degenerative joint disease. 6. History of hypertension. 7. History of chronic cellulitis of the lower extremities with chronic venostasis and hyperpigmentation. 8. Status post lap band procedure for obesity. PLAN: The patient is on updrafts and antibiotics. His antibiotics include azithromycin and ceftriaxone. That is appropriate. Will continue to follow. Prognosis is guarded. MMODL / IJN: [id number] /
[2018-09-15 20:39] LABS: Glucose,Whole Blood 211 mg/dL (75-99)
[2018-09-15] MEDS ORDERED: DOXYCYCLINE 100 MG CAP PO SCH (21:00)
[2018-09-15] MEDS: FUROSEMIDE 10 MG/ML 2 ML VIAL IV SCH (21:06)
[2018-09-16] MEDS: IPRATROPIUM-ALBUTEROL 3 ML NEB INHALATION SCH ×4 (07:09→19:14)
[2018-09-16 07:19] LABS: Glucose,Whole Blood 150 mg/dL (75-99)
[2018-09-16] MEDS: INSULIN ASPART 100 UNIT/ML 1 ML 10 ML VIAL SQ SCH ×4 (07:45→20:33)
[2018-09-16] MEDS: FUROSEMIDE 10 MG/ML 2 ML VIAL IV SCH ×2 (07:46→20:33)
[2018-09-16] MEDS: GABAPENTIN 400 MG CAP PO SCH ×4 (07:47→20:33)
[2018-09-16] MEDS: ATORVASTATIN 20 MG TAB PO SCH (07:47)
[2018-09-16] MEDS ORDERED: predniSONE 20 MG TAB PO SCH (09:00)
--- NOTE | 2018-09-16 10:29 | P.PN ---
Subjective Progress Note Date: 09/16/18 Principal diagnosis: This is a 63-year-old white male patient of Dr. Maxwell who was admitted to the hospital on 09/14/2018 with bibasilar pneumonia. She is being treated with the antibiotics including Zithromax and Rocephin, a few doses of IV steroids, and breathing treatments, he is improving, CT angios of the chest showed no evidence of pulmonary embolism, but it showed patchy infiltrate and atelectasis at the lung bases more so on the right side. Chest x-ray showed interstitial pulmonary infiltrates or evidence of heart failure. No fever or chills. Today he is breathing easier, he is ambulating about the room, no acute distress, wearing 2 L of oxygen during the day, he is utilizing his CPAP unit from home, blood culture showed no growth at the 24-hour dariela, we were unable to collect the sputum culture. No rhonchi or wheezing on today's exam, lung sounds are diminished at the bases. No new labs. Patient is being diuresed as well, currently on 20 mg of Lasix. Objective - Vital Signs Vital signs: Vital Signs Temp 97.7 F 09/16/18 06:13 Pulse 76 09/16/18 07:21 Resp 18 09/16/18 06:13 BP 130/63 09/16/18 06:13 Pulse Ox 93 L 09/16/18 06:13 Intake & Output 09/15/18 09/16/18 09/16/18 18:59 06:59 18:59 Other: # Voids 3 1 - Exam GENERAL EXAM: Alert, pleasant, morbidly obese 63-year-old white male comfortable in no apparent distress. HEAD: Normocephalic/atraumatic. EYES: Normal reaction of pupils, equal size. Conjunctiva pink, sclera white. NOSE: Clear with pink turbinates. THROAT: No erythema or exudates. NECK: No masses, no JVD, no thyroid enlargement, no adenopathy. CHEST: No chest wall deformity. Symmetrical expansion. LUNGS: Equal air entry with no crackles, wheeze, rhonchi or dullness. Diminished breath sounds at the bases CVS: Regular rate and rhythm, normal S1 and S2, no gallops, no murmurs, no rubs ABDOMEN: Soft, nontender. No hepatosplenomegaly, normal bowel sounds, no guarding or rigidity. EXTREMITIES: No clubbing, no edema, no cyanosis, 2+ pulses and upper and lower extremities. MUSCULOSKELETAL: Muscle strength and tone normal. SPINE: No scoliosis or deformity SKIN: No rashes CENTRAL NERVOUS SYSTEM: Alert and oriented -3. No focal deficits, tone is normal in all 4 extremities. PSYCHIATRIC: Alert and oriented -3. Appropriate affect. Intact judgment and insight. - Labs CBC & Chem 7: 09/14/18 18:35 09/14/18 18:35 Labs: Abnormal Lab Results - Last 24 Hours (Table) 09/14/18 09/15/18 09/15/18 Range/Units 18:35 12:29 16:57 POC Glucose (mg/dL) 197 H 254 H (75-99) mg/dL Hemoglobin A1c 6.5 H (4.0-6.0) % 09/15/18 09/16/18 Range/Units 20:38 07:18 POC Glucose (mg/dL) 211 H 150 H (75-99) mg/dL Hemoglobin A1c (4.0-6.0) % Microbiology - Last 24 Hours (Table) 09/14/18 18:35 Blood Culture - Preliminary Blood No Growth after 24 hours Assessment and Plan Plan: Assessment: #1. Acute bibasilar pneumonia, community-acquired #2. No evidence of intrinsic pulmonary disease #3. Morbid obesity #4. Obstructive sleep apnea syndrome, on CPAP therapy #5. Degenerative joint disease #6. Hypertension #7. Chronic cellulitis of the lower extremities with chronic venous stasis and hyperpigmentation #8. History of lab band procedure for obesity Plan: Patient is stable, no fever or chills, breathing is improving, he is tolerating ambulation, no wheezing chest congestion on today's exam, patient can be discharged home from pulmonary perspective. He will need follow-up in the pulmonary clinic with Dr. Johnson in one week I performed a history & physical examination of the patient and discussed their management with my nurse practitioner, Wendi Rios. I reviewed the nurse practitioner's note and agree with the documented findings and plan of care. Lung sounds are positive for diminished breath sounds at the bases. The findings and the impression was discussed with the patient. I attest to the documentation by the nurse practitioner. Time with Patient: Less than 30
[2018-09-16 11:40] LABS: Glucose,Whole Blood 129 mg/dL (75-99)
[2018-09-16] MEDS: AZITHROMYCIN 500 MG TAB PO SCH (13:04)
[2018-09-16 17:03] LABS: Glucose,Whole Blood 206 mg/dL (75-99)
[2018-09-16 20:32] LABS: Glucose,Whole Blood 203 mg/dL (75-99)
[2018-09-16] MEDS: LOSARTAN 50 MG TAB PO SCH (20:33)
[2018-09-16] MEDS: ASPIRIN 81 MG PO SCH (20:33)
[2018-09-16] MEDS: metFORMIN 500 MG TAB PO SCH (20:33)
[2018-09-17 00:58] VITALS: RESP 18; TEMP 97.9
[2018-09-17 06:32] VITALS: BP 135/74
[2018-09-17 07:08] LABS: Glucose,Whole Blood 137 mg/dL (75-99)
[2018-09-17] MEDS: IPRATROPIUM-ALBUTEROL 3 ML NEB INHALATION SCH ×3 (07:12→15:15)
[2018-09-17] MEDS: AZITHROMYCIN 500 MG TAB PO SCH (07:37)
[2018-09-17] MEDS: ATORVASTATIN 20 MG TAB PO SCH (07:37)
[2018-09-17] MEDS: FUROSEMIDE 10 MG/ML 2 ML VIAL IV SCH (07:37)
[2018-09-17] MEDS: GABAPENTIN 400 MG CAP PO SCH ×2 (07:37→12:07)
[2018-09-17] MEDS: INSULIN ASPART 100 UNIT/ML 1 ML 10 ML VIAL SQ SCH ×2 (07:38→11:49)
[2018-09-17 11:19] VITALS: PULSE 80
[2018-09-17 11:47] LABS: Glucose,Whole Blood 98 mg/dL (75-99)
--- NOTE | 2018-09-17 12:21 | P.PN ---
Subjective Progress Note Date: 09/17/18 Principal diagnosis: Bibasilar community-acquired pneumonia. This is a 63-year-old white male patient of Dr. Maxwell who was admitted to the hospital on 09/14/2018 with bibasilar pneumonia. She is being treated with the antibiotics including Zithromax and Rocephin, a few doses of IV steroids, and breathing treatments, he is improving, CT angios of the chest showed no evidence of pulmonary embolism, but it showed patchy infiltrate and atelectasis at the lung bases more so on the right side. Chest x-ray showed interstitial pulmonary infiltrates or evidence of heart failure. No fever or chills. Today he is breathing easier, he is ambulating about the room, no acute distress, wearing 2 L of oxygen during the day, he is utilizing his CPAP unit from home, blood culture showed no growth at the 24-hour dariela, we were unable to collect the sputum culture. No rhonchi or wheezing on today's exam, lung sounds are diminished at the bases. No new labs. Patient is being diuresed as well, currently on 20 mg of Lasix. The patient is seen again today 09/17/2018 in follow-up on the regular medical floor. He is currently sitting up in a chair at the bedside. He is awake and alert in no acute distress. He is maintaining O2 saturations in the 90s on room air. He lives in his home CPAP at night. He is afebrile. Hemodynamically stable. Blood culture reveals no growth. Currently on ceftriaxone and azithromycin. Objective - Vital Signs Vital signs: Vital Signs Temp 97.9 F 09/17/18 06:31 Pulse 80 09/17/18 11:18 Resp 18 09/17/18 06:31 BP 135/74 09/17/18 06:31 Pulse Ox 97 09/17/18 07:15 Intake & Output 09/16/18 09/17/18 09/17/18 18:59 06:59 18:59 Intake Total 50 950 Balance 50 950 Weight 157.7 kg Intake: IV 50 cefTRIAXone 1,000 mg In 50 Sodium Chloride 0.9% 50 ml @ 100 mls/hr IVPB Q24H [facility] Rx#:[id number] Oral 950 Other: Voiding Method Toilet Toilet Urinal Urinal # Voids 2 4 - Exam GENERAL EXAM: Alert, pleasant, morbidly obese 63-year-old male comfortable in no apparent distress. On room air. HEAD: Normocephalic/atraumatic. EYES: Normal reaction of pupils, equal size. Conjunctiva pink, sclera white. NOSE: Clear with pink turbinates. THROAT: No erythema or exudates. NECK: No masses, no JVD, no thyroid enlargement, no adenopathy. CHEST: No chest wall deformity. Symmetrical expansion. LUNGS: Equal air entry with no crackles, wheeze, rhonchi or dullness. Diminished breath sounds at the bases CVS: Regular rate and rhythm, normal S1 and S2, no gallops, no murmurs, no rubs ABDOMEN: Soft, nontender. No hepatosplenomegaly, normal bowel sounds, no guarding or rigidity. EXTREMITIES: No clubbing, no edema, no cyanosis, 2+ pulses and upper and lower extremities. MUSCULOSKELETAL: Muscle strength and tone normal. SPINE: No scoliosis or deformity SKIN: No rashes CENTRAL NERVOUS SYSTEM: Alert and oriented -3. No focal deficits, tone is normal in all 4 extremities. PSYCHIATRIC: Alert and oriented -3. Appropriate affect. Intact judgment and insight. - Labs CBC & Chem 7: 09/14/18 18:35 09/14/18 18:35 Labs: Abnormal Lab Results - Last 24 Hours (Table) 09/16/18 09/16/18 09/17/18 Range/Units 17:02 20:13 07:05 POC Glucose (mg/dL) 206 H 203 H 137 H (75-99) mg/dL Microbiology - Last 24 Hours (Table) 09/14/18 18:35 Blood Culture - Preliminary Blood No Growth after 48 hours Assessment and Plan Assessment: Assessment: #1. Acute bibasilar pneumonia, community-acquired #2. No evidence of intrinsic pulmonary disease #3. Morbid obesity #4. Obstructive sleep apnea syndrome, on CPAP therapy #5. Degenerative joint disease #6. Hypertension #7. Chronic cellulitis of the lower extremities with chronic venous stasis and hyperpigmentation #8. History of lab band procedure for obesity Plan: The patient was seen and evaluated by Dr. Johnson. He is cleared for discharge from the pulmonary standpoint. Complete her course of oral antibiotics. Continue with the Ventolin inhaler. He could follow-up in our office in 1-2 weeks' time. We'll repeat a chest x-ray then. He is however encouraged to call sooner with any recurrence of symptoms or other questions or concerns. I, the cosigning physician, performed a history & physical examination of the patient. Lungs sounds scattered rhonchi. Maintaining good O2 saturations in the 90s on room air. I discussed the assessment and plan of care with my nurse practitioner, Maria Guadalupe Naidu. I attest to the above note as dictated by her.
[2018-09-17 15:24] LABS: Anion Gap 8 mmol/L; Blood Urea Nitrogen 27 mg/dL (9-20); Calcium 8.9 mg/dL (8.4-10.2); Carbon Dioxide 30 mmol/L (22-30); Chloride 102 mmol/L (98-107); Glucose 119 mg/dL (74-99); Potassium 4.3 mmol/L (3.5-5.1); Sodium 140 mmol/L (137-145)
--- NOTE | 2018-09-17 15:35 | P.PN ---
Subjective Progress Note Date: 09/16/18 63-year-old gentleman admitted with shortness of breath neurology basically patient has bibasilar pneumonia patient is receiving Rocephin and azithromycin along with steroids. Patient says status significant improved compared to yesterday Constitutional: Denied any fatigue denied any fever. Cardio vascular: denied any chest pain, palpitations Gastrointestinal denied any nausea vomiting Pulmonary: Denied any shortness of breath cough Neurologic denied any new focal deficits All inpatient medications were reviewed and appropriate changes in these medications as dictated in the interval history and assessment and plan. Objective - Vital Signs Vital signs: Vital Signs Temp 97.9 F 09/17/18 06:31 Pulse 80 09/17/18 11:18 Resp 18 09/17/18 06:31 BP 135/74 09/17/18 06:31 Pulse Ox 97 09/17/18 07:15 Intake & Output 09/16/18 09/17/18 09/17/18 18:59 06:59 18:59 Intake Total 50 950 Balance 50 950 Weight 157.7 kg Intake: IV 50 cefTRIAXone 1,000 mg In 50 Sodium Chloride 0.9% 50 ml @ 100 mls/hr IVPB Q24H [facility] Rx#:[id number] Oral 950 Other: Voiding Method Toilet Toilet Urinal Urinal # Voids 2 4 - Exam PHYSICAL EXAMINATION: GENERAL: The patient is alert and oriented x3, not in any acute distress. Morbidly obese HEENT: Pupils are round and equally reacting to light. EOMI. No scleral icterus. No conjunctival pallor. Normocephalic, atraumatic. No pharyngeal erythema. No thyromegaly. CARDIOVASCULAR: S1 and S2 present. No murmurs, rubs, or gallops. PULMONARY: Chest is clear to auscultation, no wheezing or crackles. ABDOMEN: Soft, nontender, nondistended, normoactive bowel sounds. No palpable organomegaly. MUSCULOSKELETAL: No joint swelling or deformity. EXTREMITIES: No cyanosis, clubbing, bilateral pedal edema with chronic venous stasis dermatosis. NEUROLOGICAL: Gross neurological examination did not reveal any focal deficits. SKIN: No rashes. - Labs CBC & Chem 7: 09/14/18 18:35 09/17/18 14:39 Labs: Abnormal Lab Results - Last 24 Hours (Table) 09/16/18 09/16/18 09/17/18 Range/Units 17:02 20:13 07:05 BUN (9-20) mg/dL Glucose (74-99) mg/dL POC Glucose (mg/dL) 206 H 203 H 137 H (75-99) mg/dL 09/17/18 Range/Units 14:39 BUN 27 H (9-20) mg/dL Glucose 119 H (74-99) mg/dL POC Glucose (mg/dL) (75-99) mg/dL Microbiology - Last 24 Hours (Table) 09/14/18 18:35 Blood Culture - Preliminary Blood No Growth after 48 hours Assessment and Plan Plan: -Shadows of breath: Secondary to possible community-acquired pneumonia. Patient does have restrictive lung disease morbidly obese. Continue with the systemic steroids antibiotics Rocephin and azithromycin -Mild COPD with possible mild acute exacerbation - pedal edema secondary to chronic venous insufficiency symptomatically treatment with Lasix -Morbid obesity with restrictive lung disease, sleep apnea continue CPAP patient patient will benefit from weight loss surgery as mentioned above -Type 2 diabetes mellitus: Since patient is on systemic steroids blood sugars are expected to go up and will treat with as needed insulin -Hypertension
--- NOTE | 2018-09-17 15:37 | P.DS ---
Providers Date of admission: 09/14/18 22:11 Attending physician: Nikki Fuentes Consults: 09/15/18 10:54 Consult Physician Routine Consulting Provider: Radha Corea Consult Reason/Comments: copd Do you want consulting provider notified?: Yes Primary care physician: Roseanne Maxwell Hospital Course: 63-year-old gentleman admitted with shortness of breath believed to have bibasilar pneumonia patient is receiving Rocephin and azithromycin along with steroids. Patient has significant clinical improvement in his respiratory status will be discharged today on Rocephin for 5 days. PHYSICAL EXAMINATION: GENERAL: The patient is alert and oriented x3, not in any acute distress. Morbidly obese HEENT: Pupils are round and equally reacting to light. EOMI. No scleral icterus. No conjunctival pallor. Normocephalic, atraumatic. No pharyngeal erythema. No thyromegaly. CARDIOVASCULAR: S1 and S2 present. No murmurs, rubs, or gallops. PULMONARY: Chest is clear to auscultation, no wheezing or crackles. ABDOMEN: Soft, nontender, nondistended, normoactive bowel sounds. No palpable organomegaly. MUSCULOSKELETAL: No joint swelling or deformity. EXTREMITIES: No cyanosis, clubbing, bilateral pedal edema with chronic venous stasis dermatosis. Pedal edema improved NEUROLOGICAL: Gross neurological examination did not reveal any focal deficits. SKIN: No rashes. Assessment and Plan Plan: -Shortness of breath: Secondary to possible community-acquired pneumonia. Antiemetics as mentioned above -Mild COPD with possible mild acute exacerbation - pedal edema secondary to chronic venous insufficiency symptomatically treatment with Lasix -Morbid obesity with restrictive lung disease, sleep apnea continue CPAP patient patient will benefit from weight loss surgery as mentioned above -Type 2 diabetes mellitus: Since patient is on systemic steroids blood sugars are expected to go up and will treat with as needed insulin -Hypertension Patient Condition at Discharge: Good Plan - Discharge Summary Discharge Rx Participant: No New Discharge Prescriptions: New Cefuroxime Axetil [Ceftin] 500 mg PO BID 5 Days #10 tab predniSONE 10 mg PO DAILY #10 tab Furosemide [Lasix] 40 mg PO DAILY #30 tablet Continue Aspirin [Adult Low Dose Aspirin EC] 81 mg PO HS Losartan Potassium [Cozaar] 50 mg PO HS Gabapentin [Neurontin] 400 mg PO QID Atorvastatin [Lipitor] 20 mg PO DAILY Albuterol Nebulized [Ventolin Nebulized] 2.5 mg INHALATION RT-TID PRN PRN Reason: Shortness Of Breath predniSONE 20 mg PO DAILY metFORMIN HCL [metFORMIN HCL ER] 750 mg PO HS Discontinued Azithromycin [Zithromax Z-pack] See Taper PO DAILY Discharge Medication List Aspirin [Adult Low Dose Aspirin EC] 81 mg PO HS 04/19/17 [History] Gabapentin [Neurontin] 400 mg PO QID 04/19/17 [History] Losartan Potassium [Cozaar] 50 mg PO HS 04/19/17 [History] Albuterol Nebulized [Ventolin Nebulized] 2.5 mg INHALATION RT-TID PRN 09/14/18 [ History] Atorvastatin [Lipitor] 20 mg PO DAILY 09/14/18 [History] metFORMIN HCL [metFORMIN HCL ER] 750 mg PO HS 09/14/18 [History] predniSONE 20 mg PO DAILY 09/14/18 [History] Cefuroxime Axetil [Ceftin] 500 mg PO BID 5 Days #10 tab 09/17/18 [Rx] Furosemide [Lasix] 40 mg PO DAILY #30 tablet 09/17/18 [Rx] predniSONE 10 mg PO DAILY #10 tab 09/17/18 [Rx] Follow up Appointment(s)/Referral(s): Roseanne Maxwell MD [Primary Care Provider] - 3 Days Patient Instructions/Handouts: Pneumonitis (DC) Activity/Diet/Wound Care/Special Instructions: Nebulizer ordered through [facility] - will be delivered to the hospital prior to discharge - call [phone] with any questions Discharge Disposition: HOME SELF-CARE
== END 2018-09-17 17:20 | disposition home or self-care (01) | DRG 194 ==
LOC: EC 15:56 → 4MS4W 22:11
PROVIDERS: ADMIT Hospitalist; ATTEND Hospitalist
DX: J18.9 Pneumonia, unspecified organism (principal); J44.0 Chronic obstructive pulmonary disease with (acute) lower respiratory infection; J44.1 Chronic obstructive pulmonary disease with (acute) exacerbation; J98.11 Atelectasis; L03.115 Cellulitis of right lower limb; L03.116 Cellulitis of left lower limb; Z68.43 Body mass index [BMI] 50.0-59.9, adult; E11.9 Type 2 diabetes mellitus without complications; E66.01 Morbid (severe) obesity due to excess calories; G47.33 Obstructive sleep apnea (adult) (pediatric); I10 Essential (primary) hypertension; I87.2 Venous insufficiency (chronic) (peripheral); I87.8 Other specified disorders of veins; K44.9 Diaphragmatic hernia without obstruction or gangrene; M19.90 Unspecified osteoarthritis, unspecified site; G89.29 Other chronic pain; M54.9 Dorsalgia, unspecified; L98.8 Other specified disorders of the skin and subcutaneous tissue; Z79.82 Long term (current) use of aspirin; Z79.899 Other long term (current) drug therapy; Z79.52 Long term (current) use of systemic steroids; Z79.84 Long term (current) use of oral hypoglycemic drugs; Z98.84 Bariatric surgery status; Z96.652 Presence of left artificial knee joint; Z87.891 Personal history of nicotine dependence; Z90.49 Acquired absence of other specified parts of digestive tract; Z82.49 Family history of ischemic heart disease and other diseases of the circulatory system; Z83.3 Family history of diabetes mellitus
CPT/HCPCS: 36415; 71046; 71275; 74177; 80048; 80053; 82550; 82553; 83036; 83605; 83735; 83880; 84484; 85025; 85379; 85610; 85730; 87040; 93005; 94640; 94760; 96361; 96365; 96375; 99285

== ENCOUNTER → 2019-01-16 | Outpatient (CLI) | payer BC ==
--- NOTE | 2019-01-17 10:28 | XR ---
EXAMINATION TYPE: XR chest 2V DATE OF EXAM: 01/16/2019 COMPARISON: 09/14/2018 HISTORY: 63-year-old male with cough TECHNIQUE: Frontal and lateral views FINDINGS: Heart mildly enlarged. Low lung volumes with crowded vascular markings. Medium interstitial densities mid and lower lungs. There may be a trace left pleural effusion. IMPRESSION: 1. Cardiomegaly and mild interstitial changes, correlate to exclude mild pulmonary vascular congestio n. 2. Some patchy infiltrate versus atelectasis peripheral left base and possible trace effusion.
== END | disposition home or self-care (01) ==
LOC: RADXRYALE 16:09
PROVIDERS: ATTEND Internal Medicine
DX: I51.7 Cardiomegaly (principal); R91.8 Other nonspecific abnormal finding of lung field; R05 Cough
CPT/HCPCS: 71046

== ENCOUNTER → 2019-04-12 | Outpatient (CLI) | payer BC ==
--- NOTE | 2019-04-12 15:32 | US ---
LOWER EXTREMITY VENOUS INSUFFICIENCY SIDE PERFORMED: Bilateral 1) Color flow is present and patency is documented in the following vessels. No DVT or SVT is noted . EIV-not seen on left Common Femoral Vein Deep Femoral Vein Femoral Vein-unable to see well enough to doppler Popliteal Vein Proximal Calf Veins-not seen Greater Saph Vein Upper Small Saph Vein 2) There is no venous reflux noted. Morbidly obese patient unable to sit still due to extreme pain in hip. Exam limited with extreme ismael hnical difficulties. IMPRESSION: No sonographic evidence of deep venous thrombosis nor superficial venous thrombosis withi n the visualized bilateral lower extremities however there is nonvisualization of the external iliac vein on the left and suboptimal visualization of the femoral veins bilaterally as well as nonvisualiz ation of the proximal calf veins secondary to patient body habitus and pain during the examination wa s suboptimal positioning.
--- NOTE | 2019-04-19 09:46 | P.ARTDOP ---
Arterial Doppler LOWER EXTREMITY ARTERIAL DOPPLER: DATE OF SERVICE: 04/12/2019 Reason for study: Left ankle ulcer. Doppler waveforms: Multiphasic bilaterally throughout. Pulse volume recording: Normal configuration throughout. Pressure gradients: None. Ankle-brachial indices: Greater than 1 bilaterally. Toe pressures: [] on the right, [] on the left Impression: Normal study.
== END | disposition home or self-care (01) ==
LOC: RADUSWWP 13:02
PROVIDERS: ATTEND Internal Medicine
DX: I73.9 Peripheral vascular disease, unspecified (principal); I87.2 Venous insufficiency (chronic) (peripheral)
CPT/HCPCS: 93923; 93970

== ENCOUNTER → 2019-09-13 | Outpatient (CLI) | payer OTHER | END | disposition home or self-care (01) | LOC: RADMRIMAIN 17:05 | PROVIDERS: ATTEND Orthopaedic Surgery | DX: Z53.9 Procedure and treatment not carried out, unspecified reason (principal) ==

== ENCOUNTER 2019-09-22 13:50 | Emergency (ER) | payer BC ==
[2019-09-22] MEDS ORDERED: MORPHINE SULFATE 4 MG/ML SYRINGE IV STA (14:17)
[2019-09-22] MEDS ORDERED: ONDANSETRON 4 MG/2 ML VIAL IVP STA (14:17)
[2019-09-22] MEDS ORDERED: SODIUM CHLORIDE 0.9% 1,000 ML IV STA (14:17)
[2019-09-22 14:39] LABS: Basophils # (A) 0.1 k/uL (0-0.2); Basophils % (A) 1 %; Eosinophils # (A) 0.2 k/uL (0-0.7); Eosinophils % (A) 3 %; HCT 47.3 % (39.0-53.0); HGB 15.6 gm/dL (13.0-17.5); Lymphocytes # (A) 0.6 k/uL (1.0-4.8); Lymphocytes % (A) 10 %; MCH 29.5 pg (25.0-35.0); MCHC 33.1 g/dL (31.0-37.0); Mean Platelet Volume 8.2; Monocytes # (A) 0.4 k/uL (0-1.0); Monocytes % (A) 6 %; Neutrophils # (A) 5.1 k/uL (1.3-7.7); Neutrophils % (A) 79 %; Platelet Count 100 k/uL (150-450); RBC 5.31 m/uL (4.30-5.90); RDW 13.1 % (11.5-15.5); WBC 6.5 k/uL (3.8-10.6)
[2019-09-22 14:47] LABS: INR 1.5 (<1.2); Prothrombin Time 15.1 sec (9.0-12.0)
[2019-09-22 14:57] LABS: ALT 15 U/L (4-49); AST 26 U/L (17-59); African American GFR (CKD) >90 (>60 ml/min/1.73 sqM); Albumin 4.2 g/dL (3.5-5.0); Alkaline Phosphatase 101 U/L (38-126); Amylase 44 U/L (30-110); Anion Gap 9 mmol/L; Blood Urea Nitrogen 13 mg/dL (9-20); Calcium 9.1 mg/dL (8.4-10.2); Carbon Dioxide 25 mmol/L (22-30); Chloride 106 mmol/L (98-107); Glucose 109 mg/dL (74-99); Non-African American GFR(CKD) >90 (>60 ml/min/1.73 sqM); Potassium 4.2 mmol/L (3.5-5.1); Sodium 140 mmol/L (137-145); Total Bilirubin 1.9 mg/dL (0.2-1.3); Total Protein 7.6 g/dL (6.3-8.2)
--- NOTE | 2019-09-22 15:13 | ED ---
Abdominal Pain HPI - General Chief Complaint: Abdominal Pain Stated Complaint: Stomach pain Time Seen by Provider: 09/22/19 14:11 Source: patient Mode of arrival: ambulatory Limitations: no limitations - History of Present Illness Initial Comments: Patient is a 64-year-old male, hypertension, diabetes, presenting to emergency Department with complaints of upper abdominal pain 2 days. He describes the pain as fairly constant, sharp in nature and has been increasing over the past few days. He did go to his PCP, Dr. Maxwell today who sent him into the ER for further evaluation. Patient denies fever, vomiting. He does admit to mild nausea. He also started having diarrhea earlier this morning. Patient admits to history of cholecystectomy, appendectomy as well as a blood clot in his liver. He has no other abdominal history. Patient denies chest pain, shortness of breath. He denies any trauma. He has no other complaints at this time. Final arrival to the ER, his BP is elevated at 173/77, rest of vitals normal. - Related Data Home Medications Medication Instructions Recorded Confirmed Aspirin [Adult Low Dose Aspirin EC] 81 mg PO HS 04/19/17 09/14/18 Gabapentin [Neurontin] 400 mg PO QID 04/19/17 09/15/18 Losartan Potassium [Cozaar] 50 mg PO HS 04/19/17 09/14/18 Albuterol Nebulized [Ventolin 2.5 mg INHALATION RT-TID PRN 09/14/18 09/14/18 Nebulized] Atorvastatin [Lipitor] 20 mg PO DAILY 09/14/18 09/14/18 metFORMIN HCL [metFORMIN HCL ER] 750 mg PO HS 09/14/18 09/14/18 predniSONE 20 mg PO DAILY 09/14/18 09/14/18 Previous Rx's Medication Instructions Recorded Cefuroxime Axetil [Ceftin] 500 mg PO BID 5 Days #10 tab 09/17/18 Furosemide [Lasix] 40 mg PO DAILY #30 tablet 09/17/18 predniSONE 10 mg PO DAILY #10 tab 09/17/18 Levofloxacin [Levaquin] 500 mg PO DAILY 5 Days #5 tab 09/22/19 Omeprazole 40 mg PO DAILY 14 Days #14 09/22/19 capsule. Allergies Allergy/AdvReac Type Severity Reaction Status Date / Time No Known Allergies Allergy Verified 09/22/19 14:10 Review of Systems ROS Statement: Those systems with pertinent positive or pertinent negative responses have been documented in the HPI. ROS Other: All systems not noted in ROS Statement are negative. Past Medical History Past Medical History: Diabetes Mellitus, Hypertension, Osteoarthritis (OA), Sleep Apnea/CPAP/BIPAP Additional Past Medical History / Comment(s): chronic back pain, wound to L foot, cellutitis multiple times in LLE History of Any Multi-Drug Resistant Organisms: None Reported Past Surgical History: Appendectomy, Back Surgery, Cholecystectomy Additional Past Surgical History / Comment(s): finger surgery, carpal tunnel surgery, L KNEE REPLACEMENT 2010, lap band Past Anesthesia/Blood Transfusion Reactions: No Reported Reaction Past Psychological History: No Psychological Hx Reported Smoking Status: Never smoker Past Alcohol Use History: Rare Past Drug Use History: None Reported - Past Family History Mother Family Medical History: Coronary Artery Disease (CAD), Diabetes Mellitus Father Family Medical History: Coronary Artery Disease (CAD) Brother(s) Family Medical History: Coronary Artery Disease (CAD) General Exam - General Exam Comments Initial Comments: GENERAL: Patient appears to be in mild distress holding his stomach. HEAD: Atraumatic, normocephalic. EYES: Pupils equal round and reactive to light, extraocular movements intact, sclera anicteric, conjunctiva are normal. ENT: TMs normal, nares patent, oropharynx clear without exudates. Moist mucous membranes. NECK: Normal range of motion, supple without lymphadenopathy or JVD. LUNGS: Breath sounds clear to auscultation bilaterally and equal. No wheezes rales or rhonchi. HEART: Regular rate and rhythm without murmurs, rubs or gallops. ABDOMEN: Tender to palpation epigastric as well as left and right upper quadrant. No lower quadrant pain. Soft, normoactive bowel sounds. No guarding, no rebound. No masses appreciated. : Deferred EXTREMITIES: Normal range of motion, no pitting or edema. No clubbing or cyanosis. NEUROLOGICAL: Normal speech, normal gait. PSYCH: Normal mood, normal affect. SKIN: Warm, Dry, normal turgor, no rashes or lesions noted. Limitations: no limitations Course Vital Signs 09/22/19 09/22/19 09/22/19 14:08 15:12 16:31 Temperature 98.3 F 98.2 F Pulse Rate 70 73 63 Respiratory 20 19 17 Rate Blood Pressure 173/77 144/89 146/80 O2 Sat by Pulse 95 96 99 Oximetry Medical Decision Making - Medical Decision Making He is a 64-year-old male sent in by his PCP for upper abdominal pain 2 days. Afebrile. EKG shows no acute changes. Troponin is normal. Total bili is 1.9. No other acute abnormalities. CT the abdomen shows 4 enteritis. No suspected obstruction. Minimal ascites around the spleen. Splenomegaly, which is stable. Patient was given pain medicine, fluids and reports improvement in his symptoms. I discussed with patient these findings. This is most likely enteritis. Given patient's length of symptoms, patient will be discharged with antibiotic as well as omeprazole. He is in agreement with this plan of care. Strict return parameters were discussed with the patient and he verbalized understanding. Case discussed with Dr. Trevino. - Lab Data Result diagrams: 09/22/19 14:28 09/22/19 14:28 Lab Results 09/22/19 09/22/19 09/22/19 Range/Units 14:28 14:28 14:28 WBC 6.5 (3.8-10.6) k/uL RBC 5.31 (4.30-5.90) m/uL Hgb 15.6 (13.0-17.5) gm/dL Hct 47.3 (39.0-53.0) % MCV 89.0 (80.0-100.0) fL MCH 29.5 (25.0-35.0) pg MCHC 33.1 (31.0-37.0) g/dL RDW 13.1 (11.5-15.5) % Plt Count 100 L (150-450) k/uL Neutrophils % 79 % Lymphocytes % 10 % Monocytes % 6 % Eosinophils % 3 % Basophils % 1 % Neutrophils # 5.1 (1.3-7.7) k/uL Lymphocytes # 0.6 L (1.0-4.8) k/uL Monocytes # 0.4 (0-1.0) k/uL Eosinophils # 0.2 (0-0.7) k/uL Basophils # 0.1 (0-0.2) k/uL PT 15.1 H (9.0-12.0) sec INR 1.5 H (<1.2) APTT 25.0 (22.0-30.0) sec Sodium 140 (137-145) mmol/L Potassium 4.2 (3.5-5.1) mmol/L Chloride 106 (98-107) mmol/L Carbon Dioxide 25 (22-30) mmol/L Anion Gap 9 mmol/L BUN 13 (9-20) mg/dL Creatinine 0.77 (0.66-1.25) mg/dL Est GFR (CKD-EPI)AfAm >90 (>60 ml/min/1.73 sqM) Est GFR (CKD-EPI)NonAf >90 (>60 ml/min/1.73 sqM) Glucose 109 H (74-99) mg/dL Plasma Lactic Acid Prasanna (0.7-2.0) mmol/L Calcium 9.1 (8.4-10.2) mg/dL Total Bilirubin 1.9 H (0.2-1.3) mg/dL AST 26 (17-59) U/L ALT 15 (4-49) U/L Alkaline Phosphatase 101 (38-126) U/L Troponin I (0.000-0.034) ng/mL Total Protein 7.6 (6.3-8.2) g/dL Albumin 4.2 (3.5-5.0) g/dL Amylase 44 (30-110) U/L Lipase 194 (23-300) U/L 09/22/19 09/22/19 Range/Units 14:28 14:28 WBC (3.8-10.6) k/uL RBC (4.30-5.90) m/uL Hgb (13.0-17.5) gm/dL Hct (39.0-53.0) % MCV (80.0-100.0) fL MCH (25.0-35.0) pg MCHC (31.0-37.0) g/dL RDW (11.5-15.5) % Plt Count (150-450) k/uL Neutrophils % % Lymphocytes % % Monocytes % % Eosinophils % % Basophils % % Neutrophils # (1.3-7.7) k/uL Lymphocytes # (1.0-4.8) k/uL Monocytes # (0-1.0) k/uL Eosinophils # (0-0.7) k/uL Basophils # (0-0.2) k/uL PT (9.0-12.0) sec INR (<1.2) APTT (22.0-30.0) sec Sodium (137-145) mmol/L Potassium (3.5-5.1) mmol/L Chloride (98-107) mmol/L Carbon Dioxide (22-30) mmol/L Anion Gap mmol/L BUN (9-20) mg/dL Creatinine (0.66-1.25) mg/dL Est GFR (CKD-EPI)AfAm (>60 ml/min/1.73 sqM) Est GFR (CKD-EPI)NonAf (>60 ml/min/1.73 sqM) Glucose (74-99) mg/dL Plasma Lactic Acid Prasanna 1.1 (0.7-2.0) mmol/L Calcium (8.4-10.2) mg/dL Total Bilirubin (0.2-1.3) mg/dL AST (17-59) U/L ALT (4-49) U/L Alkaline Phosphatase (38-126) U/L Troponin I <0.012 (0.000-0.034) ng/mL Total Protein (6.3-8.2) g/dL Albumin (3.5-5.0) g/dL Amylase (30-110) U/L Lipase (23-300) U/L - EKG Data EKG Comments: Ventricular rate 76, IA interval 160, QTC 438. Normal sinus rhythm. Nonspeci fic ST abnormality. No acute ST segment elevations or depressions. Disposition Clinical Impression: Abdominal pain, Enteritis Disposition: HOME SELF-CARE Condition: Stable Instructions (If sedation given, give patient instructions): Abdominal Pain (ED) Additional Instructions: Please return to the Emergency Department if symptoms worsen or any other concerns, such as fever, increasing abdominal pain. Follow-up with PCP. Take medications as prescribed. Prescriptions: Levofloxacin [Levaquin] 500 mg PO DAILY 5 Days #5 tab Omeprazole 40 mg PO DAILY 14 Days #14 capsule.dr Is patient prescribed a controlled substance at d/c from ED?: No Referrals: Roseanne Maxwell MD [Primary Care Provider] - 1-2 days
--- NOTE | 2019-09-22 16:03 | CT ---
EXAMINATION TYPE: CT abdomen pelvis w con DATE OF EXAM: 09/22/2019 COMPARISON: 09/14/2018 INDICATION: Upper Abdominal pain with nausea and diarrhea DLP: 4034 mGycm, Automated exposure control for dose reduction was used. CONTRAST: 100 mL of Isovue 300. Study performed without Oral Contrast TECHNIQUE: Axial images were obtained from above the diaphragm to the pubic rami in the axial plane a t 5 mm thick sections. Reconstructed images are reviewed on the computer in the coronal plane. FINDINGS: Mild ascites is adjacent to the spleen. Limited CT sections are obtained the lung bases. The lung bases are clear. Small amount of prominen ce of the distal esophagus above the lap band is present. Obvious prolapse is not identified. CT ABDOMEN: Liver: Normal Spleen: Splenomegaly is present. Pancreas: Normal Adrenal glands: The adrenal glands are normal. Gallbladder: Normal Kidneys: No masses are evident. No hydronephrosis is present. Small cortical renal cysts are presen t bilaterally. Small nonobstructing renal stone is in the superior pole right kidney. This measures 0 .4 cm, series 202 image 70. Delayed images were obtained through the kidneys, which remain unremarkab le. Aorta: Vascular calcification is within the aorta. Inferior vena cava: Normal. CT PELVIS: Loops of bowel within the abdomen and pelvis are normal. The studies performed without oral contr ast limiting bowel evaluation. Small amount of fluid is in the right paracolic gutter. There are some scattered increased inflammatory type markings to the mesentery greater in the right upper quadrant. Second and third portions of the duodenum and Proximal jejunum is slightly prominent. Appendix: Normal as visualized. Urinary bladder: Normal. Genitourinary structures: Prostate contains some calcification Osseous structures: No suspicious lytic or sclerotic lesions. IMPRESSIONS: 1. Mild increased changes within the mesentery with some mild prominence of the duodenum and jejunum . Correlate for jejunitis. No suspicious obstruction is evident. 2. Minimal ascites adjacent to the spleen. 3. Splenomegaly, stable. 4. Ascites and mesenteric inflammatory changes are interval findings.
[2019-09-22 16:32] VITALS: BP 146/80; PULSE 63; RESP 17; TEMP 98.2
== END 2019-09-22 16:55 | disposition home or self-care (01) ==
LOC: EC 13:50
DX: K52.9 Noninfective gastroenteritis and colitis, unspecified (principal); R18.8 Other ascites; R16.1 Splenomegaly, not elsewhere classified; E11.9 Type 2 diabetes mellitus without complications; I10 Essential (primary) hypertension; M19.90 Unspecified osteoarthritis, unspecified site; G47.30 Sleep apnea, unspecified; Z79.52 Long term (current) use of systemic steroids; Z79.82 Long term (current) use of aspirin; Z79.84 Long term (current) use of oral hypoglycemic drugs; Z79.899 Other long term (current) drug therapy; Z87.2 Personal history of diseases of the skin and subcutaneous tissue; Z87.19 Personal history of other diseases of the digestive system; Z90.49 Acquired absence of other specified parts of digestive tract; Z96.652 Presence of left artificial knee joint; Z99.89 Dependence on other enabling machines and devices
CPT/HCPCS: 36415; 93005; 80053; 82150; 83605; 83690; 84484; 85025; 85610; 85730; 74177; 99284; 96374; 96375; 96361; J2270; J2405; Q9967

== ENCOUNTER 2019-09-26 22:36 | Inpatient (IN) | payer BC ==
[2019-09-26] MEDS ORDERED: MORPHINE SULFATE 4 MG/ML SYRINGE IV STA (22:52)
--- NOTE | 2019-09-26 23:00 | ED ---
Abdominal Pain HPI - General Chief Complaint: Shortness of Breath Stated Complaint: Abd Pain Time Seen by Provider: 09/26/19 22:43 Source: patient Mode of arrival: ambulatory Limitations: no limitations - History of Present Illness Initial Comments: This patient is a 64-year-old man who presents to be evaluated for abdominal pain. I did ask the patient a few is here for shortness of breath he states that his complaint is abdominal pain, despite the triage note. The patient states that his pain had started about 4-5 days ago. It was epigastric at that time, and he was seen here about it. The patient states that he was sent home, the patient states that in the interval since she was seen here, the pain has become diffuse all across his abdomen. It is aching and severe. He was not able to identify any inciting factor. He has not developed worsening or relieving factors. Patient denies any associated symptoms. He states that when the pain started up he had a couple of episodes of diarrhea, but he states that he is not having this any longer. He did not note any blood or tarry bowel movements. No change in urination. No vomiting. MD Complaint: abdominal pain -: days(s) Location: diffuse Migration to: no migration Severity: severe Quality: aching Consistency: constant Improves With: nothing Worsens With: nothing Associated Symptoms: denies other symptoms - Related Data Home Medications Medication Instructions Recorded Confirmed Aspirin [Adult Low Dose Aspirin EC] 81 mg PO HS 04/19/17 09/27/19 Gabapentin [Neurontin] 400 mg PO QID 04/19/17 09/27/19 Atorvastatin [Lipitor] 20 mg PO DAILY 09/14/18 09/27/19 metFORMIN HCL [metFORMIN HCL ER] 750 mg PO HS 09/14/18 09/27/19 HYDROcodone/APAP 7.5-325MG [[place] 1 tab PO HS PRN 09/27/19 09/27/19 7.5-325] Valsartan 80 mg PO DAILY 09/27/19 09/27/19 Allergies Allergy/AdvReac Type Severity Reaction Status Date / Time No Known Allergies Allergy Verified 09/27/19 08:13 Review of Systems ROS Statement: Those systems with pertinent positive or pertinent negative responses have been documented in the HPI. ROS Other: All systems not noted in ROS Statement are negative. Constitutional: Denies: fever, chills Respiratory: Denies: cough, dyspnea Cardiovascular: Reports: edema (Chronic). Denies: chest pain, palpitations Gastrointestinal: Reports: as per HPI, abdominal pain. Denies: nausea, vomiting, diarrhea, constipation, melena, hematochezia Genitourinary: Denies: dysuria, hematuria, testicular pain Musculoskeletal: Denies: back pain Skin: Denies: rash Neurological: Denies: headache, weakness Past Medical History Past Medical History: Diabetes Mellitus, Hypertension, Osteoarthritis (OA), Sleep Apnea/CPAP/BIPAP Additional Past Medical History / Comment(s): chronic back pain, wound to L foot, cellutitis multiple times in LLE History of Any Multi-Drug Resistant Organisms: None Reported Past Surgical History: Appendectomy, Back Surgery, Cholecystectomy Additional Past Surgical History / Comment(s): finger surgery, carpal tunnel surgery, L KNEE REPLACEMENT 2010, lap band Past Anesthesia/Blood Transfusion Reactions: No Reported Reaction Past Psychological History: No Psychological Hx Reported Smoking Status: Never smoker Past Alcohol Use History: Rare Past Drug Use History: None Reported - Past Family History Mother Family Medical History: Coronary Artery Disease (CAD), Diabetes Mellitus Father Family Medical History: Coronary Artery Disease (CAD) Brother(s) Family Medical History: Coronary Artery Disease (CAD) General Exam Limitations: no limitations General appearance: alert, in no apparent distress Head exam: Present: atraumatic, normocephalic Eye exam: Present: normal appearance. Absent: scleral icterus, conjunctival injection ENT exam: Present: mucous membranes dry Respiratory exam: Present: normal lung sounds bilaterally, respiratory distress (There is mild tachypnea). Absent: wheezes, rales, rhonchi, stridor Cardiovascular Exam: Present: regular rate, normal rhythm, normal heart sounds. Absent: systolic murmur, diastolic murmur, rubs, gallop GI/Abdominal exam: Present: soft, other (Port for the patient's gastric sleeve present left upper quadrant). Absent: distended, tenderness, guarding, rebound, rigid, mass, pulsatile mass, hernia Extremities exam: Present: normal inspection, normal capillary refill, pedal ed chilango (Chronic edema to the ankles bilaterally). Absent: calf tenderness Back exam: Present: normal inspection. Absent: CVA tenderness (R), CVA tenderness (L) Neurological exam: Present: alert Skin exam: Present: warm, dry, intact, normal color. Absent: rash Course Vital Signs 09/26/19 09/27/19 09/27/19 22:37 00:00 02:39 Temperature 98.0 F Pulse Rate 77 70 67 Respiratory 28 H 17 18 Rate Blood Pressure 198/73 112/68 105/68 O2 Sat by Pulse 95 95 95 Oximetry Medical Decision Making - Lab Data Result diagrams: 09/30/19 06:06 09/30/19 06:06 Lab Results 09/26/19 09/26/19 09/26/19 Range/Units 23:00 23:00 23:00 WBC 5.9 (3.8-10.6) k/uL RBC 4.95 (4.30-5.90) m/uL Hgb 14.6 (13.0-17.5) gm/dL Hct 43.6 (39.0-53.0) % MCV 88.0 (80.0-100.0) fL MCH 29.4 (25.0-35.0) pg MCHC 33.4 (31.0-37.0) g/dL RDW 12.9 (11.5-15.5) % Plt Count 102 L (150-450) k/uL Neutrophils % 72 % Lymphocytes % 14 % Monocytes % 8 % Eosinophils % 4 % Basophils % 1 % Neutrophils # 4.2 (1.3-7.7) k/uL Lymphocytes # 0.8 L (1.0-4.8) k/uL Monocytes # 0.4 (0-1.0) k/uL Eosinophils # 0.3 (0-0.7) k/uL Basophils # 0.0 (0-0.2) k/uL Manual Slide Review Sodium 139 (137-145) mmol/L Potassium 4.4 (3.5-5.1) mmol/L Chloride 105 (98-107) mmol/L Carbon Dioxide 25 (22-30) mmol/L Anion Gap 9 mmol/L BUN 16 (9-20) mg/dL Creatinine 0.93 (0.66-1.25) mg/dL Est GFR (CKD-EPI)AfAm >90 (>60 ml/min/1.73 sqM) Est GFR (CKD-EPI)NonAf 87 (>60 ml/min/1.73 sqM) Glucose 115 H (74-99) mg/dL POC Glucose (mg/dL) (75-99) mg/dL POC Glu Hand Touch Up Painter ID Plasma Lactic Acid Prasanna 1.2 (0.7-2.0) mmol/L Calcium 8.7 (8.4-10.2) mg/dL Magnesium (1.6-2.3) mg/dL Total Bilirubin 1.2 (0.2-1.3) mg/dL AST 25 (17-59) U/L ALT 14 (4-49) U/L Alkaline Phosphatase 102 (38-126) U/L Troponin I (0.000-0.034) ng/mL Total Protein 7.1 (6.3-8.2) g/dL Albumin 3.9 (3.5-5.0) g/dL Amylase 46 (30-110) U/L Lipase 218 (23-300) U/L Urine Color Urine Appearance (Clear) Urine pH (5.0-8.0) Ur Specific [place] (1.001-1.035) Urine Protein (Negative) Urine Glucose (UA) (Negative) Urine Ketones (Negative) Urine Blood (Negative) Urine Nitrite (Negative) Urine Bilirubin (Negative) Urine Urobilinogen (<2.0) mg/dL Ur Leukocyte Esterase (Negative) Urine RBC (0-5) /hpf Urine WBC (0-5) /hpf Ur Squamous Epith Cells (0-4) /hpf Urine Bacteria (None) /hpf Urine Mucus (None) /hpf 09/26/19 09/27/19 09/27/19 Range/Units 23:00 00:50 07:12 WBC (3.8-10.6) k/uL RBC (4.30-5.90) m/uL Hgb (13.0-17.5) gm/dL Hct (39.0-53.0) % MCV (80.0-100.0) fL MCH (25.0-35.0) pg MCHC (31.0-37.0) g/dL RDW (11.5-15.5) % Plt Count (150-450) k/uL Neutrophils % % Lymphocytes % % Monocytes % % Eosinophils % % Basophils % % Neutrophils # (1.3-7.7) k/uL Lymphocytes # (1.0-4.8) k/uL Monocytes # (0-1.0) k/uL Eosinophils # (0-0.7) k/uL Basophils # (0-0.2) k/uL Manual Slide Review Sodium (137-145) mmol/L Potassium (3.5-5.1) mmol/L Chloride (98-107) mmol/L Carbon Dioxide (22-30) mmol/L Anion Gap mmol/L BUN (9-20) mg/dL Creatinine (0.66-1.25) mg/dL Est GFR (CKD-EPI)AfAm (>60 ml/min/1.73 sqM) Est GFR (CKD-EPI)NonAf (>60 ml/min/1.73 sqM) Glucose (74-99) mg/dL POC Glucose (mg/dL) 98 (75-99) mg/dL POC Glu Hand Touch Up Painter ID Jackie Khan Plasma Lactic Acid Prasanna (0.7-2.0) mmol/L Calcium (8.4-10.2) mg/dL Magnesium (1.6-2.3) mg/dL Total Bilirubin (0.2-1.3) mg/dL AST (17-59) U/L ALT (4-49) U/L Alkaline Phosphatase (38-126) U/L Troponin I <0.012 (0.000-0.034) ng/mL Total Protein (6.3-8.2) g/dL Albumin (3.5-5.0) g/dL Amylase (30-110) U/L Lipase (23-300) U/L Urine Color Yellow Urine Appearance Turbid (Clear) Urine pH 6.0 (5.0-8.0) Ur Specific [place] >1.050 H (1.001-1.035) Urine Protein Negative (Negative) Urine Glucose (UA) Negative (Negative) Urine Ketones Negative (Negative) Urine Blood Negative (Negative) Urine Nitrite Negative (Negative) Urine Bilirubin Negative (Negative) Urine Urobilinogen <2.0 (<2.0) mg/dL Ur Leukocyte Esterase Small H (Negative) Urine RBC <1 (0-5) /hpf Urine WBC 20 H (0-5) /hpf Ur Squamous Epith Cells 8 H (0-4) /hpf Urine Bacteria Rare H (None) /hpf Urine Mucus Rare H (None) /hpf 01/09/27/19 09/27/19 Range/Units 11:40 17:17 20:43 WBC (3.8-10.6) k/uL RBC (4.30-5.90) m/uL Hgb (13.0-17.5) gm/dL Hct (39.0-53.0) % MCV (80.0-100.0) fL MCH (25.0-35.0) pg MCHC (31.0-37.0) g/dL RDW (11.5-15.5) % Plt Count (150-450) k/uL Neutrophils % % Lymphocytes % % Monocytes % % Eosinophils % % Basophils % % Neutrophils # (1.3-7.7) k/uL Lymphocytes # (1.0-4.8) k/uL Monocytes # (0-1.0) k/uL Eosinophils # (0-0.7) k/uL Basophils # (0-0.2) k/uL Manual Slide Review Sodium (137-145) mmol/L Potassium (3.5-5.1) mmol/L Chloride (98-107) mmol/L Carbon Dioxide (22-30) mmol/L Anion Gap mmol/L BUN (9-20) mg/dL Creatinine (0.66-1.25) mg/dL Est GFR (CKD-EPI)AfAm (>60 ml/min/1.73 sqM) Est GFR (CKD-EPI)NonAf (>60 ml/min/1.73 sqM) Glucose (74-99) mg/dL POC Glucose (mg/dL) 92 106 H 102 H (75-99) mg/dL POC Glu Hand Touch Up Painter ID Bill, Jackie Khan, Jackie Padilla, Diandra Plasma Lactic Acid Pr[place]anna (0.7-2.0) mmol/L Calcium (8.4-10.2) mg/dL Magnesium (1.6-2.3) mg/dL Total Bilirubin (0.2-1.3) mg/dL AST (17-59) U/L ALT (4-49) U/L Alkaline Phosphatase (38-126) U/L Troponin I (0.000-0.034) ng/mL Total Protein (6.3-8.2) g/dL Albumin (3.5-5.0) g/dL Amylase (30-110) U/L Lipase (23-300) U/L Urine Color Urine Appearance (Clear) Urine pH (5.0-8.0) Ur Specific [place] (1.001-1.035) Urine Protein (Negative) Urine Glucose (UA) (Negative) Urine Ketones (Negative) Urine Blood (Negative) Urine Nitrite (Negative) Urine Bilirubin (Negative) Urine Urobilinogen (<2.0) mg/dL Ur Leukocyte Esterase (Negative) Urine RBC (0-5) /hpf Urine WBC (0-5) /hpf Ur Squamous Epith Cells (0-4) /hpf Urine Bacteria (None) /hpf Urine Mucus (None) /hpf 09/28/19 09/28/19 09/28/19 Range/Units 06:12 06:12 06:58 WBC 4.7 (3.8-10.6) k/uL RBC 4.66 (4.30-5.90) m/uL Hgb 14.0 (13.0-17.5) gm/dL Hct 41.9 (39.0-53.0) % MCV 89.9 (80.0-100.0) fL MCH 30.1 (25.0-35.0) pg MCHC 33.5 (31.0-37.0) g/dL RDW 13.1 (11.5-15.5) % Plt Count 96 L (150-450) k/uL Neutrophils % 72 % Lymphocytes % 15 % Monocytes % 7 % Eosinophils % 4 % Basophils % 1 % Neutrophils # 3.3 (1.3-7.7) k/uL Lymphocytes # 0.7 L (1.0-4.8) k/uL Monocytes # 0.3 (0-1.0) k/uL Eosinophils # 0.2 (0-0.7) k/uL Basophils # 0.0 (0-0.2) k/uL Manual Slide Review Performed Sodium 139 (137-145) mmol/L Potassium 4.7 (3.5-5.1) mmol/L Chloride 105 (98-107) mmol/L Carbon Dioxide 28 (22-30) mmol/L Anion Gap 6 mmol/L BUN 12 (9-20) mg/dL Creatinine 0.81 (0.66-1.25) mg/dL Est GFR (CKD-EPI)AfAm >90 (>60 ml/min/1.73 sqM) Est GFR (CKD-EPI)NonAf >90 (>60 ml/min/1.73 sqM) Glucose 99 (74-99) mg/dL POC Glucose (mg/dL) 102 H (75-99) mg/dL POC Glu Hand Touch Up Painter ID Brandy Deleon Plasma Lactic Acid Pr[place]anna (0.7-2.0) mmol/L Calcium 8.3 L (8.4-10.2) mg/dL Magnesium 2.0 (1.6-2.3) mg/dL Total Bilirubin (0.2-1.3) mg/dL AST (17-59) U/L ALT (4-49) U/L Alkaline Phosphatase (38-126) U/L Troponin I (0.000-0.034) ng/mL Total Protein (6.3-8.2) g/dL Albumin (3.5-5.0) g/dL Amylase (30-110) U/L Lipase (23-300) U/L Urine Color Urine Appearance (Clear) Urine pH (5.0-8.0) Ur Specific [place] (1.001-1.035) Urine Protein (Negative) Urine Glucose (UA) (Negative) Urine Ketones (Negative) Urine Blood (Negative) Urine Nitrite (Negative) Urine Bilirubin (Negative) Urine Urobilinogen (<2.0) mg/dL Ur Leukocyte Esterase (Negative) Urine RBC (0-5) /hpf Urine WBC (0-5) /hpf Ur Squamous Epith Cells (0-4) /hpf Urine Bacteria (None) /hpf Urine Mucus (None) /hpf 09/28/19 09/28/19 09/28/19 Range/Units 11:31 14:22 16:52 WBC (3.8-10.6) k/uL RBC (4.30-5.90) m/uL Hgb (13.0-17.5) gm/dL Hct (39.0-53.0) % MCV (80.0-100.0) fL MCH (25.0-35.0) pg MCHC (31.0-37.0) g/dL RDW (11.5-15.5) % Plt Count (150-450) k/uL Neutrophils % % Lymphocytes % % Monocytes % % Eosinophils % % Basophils % % Neutrophils # (1.3-7.7) k/uL Lymphocytes # (1.0-4.8) k/uL Monocytes # (0-1.0) k/uL Eosinophils # (0-0.7) k/uL Basophils # (0-0.2) k/uL Manual Slide Review Sodium (137-145) mmol/L Potassium (3.5-5.1) mmol/L Chloride (98-107) mmol/L Carbon Dioxide (22-30) mmol/L Anion Gap mmol/L BUN (9-20) mg/dL Creatinine (0.66-1.25) mg/dL Est GFR (CKD-EPI)AfAm (>60 ml/min/1.73 sqM) Est GFR (CKD-EPI)NonAf (>60 ml/min/1.73 sqM) Glucose (74-99) mg/dL POC Glucose (mg/dL) 83 80 (75-99) mg/dL POC Glu Hand Touch Up Painter ID Closs, Brandy Closs, Brandy Plasma Lactic Acid [place] (0.7-2.0) mmol/L Calcium (8.4-10.2) mg/dL Magnesium (1.6-2.3) mg/dL Total Bilirubin (0.2-1.3) mg/dL AST (17-59) U/L ALT (4-49) U/L Alkaline Phosphatase (38-126) U/L Troponin I <0.012 (0.000-0.034) ng/mL Total Protein (6.3-8.2) g/dL Albumin (3.5-5.0) g/dL Amylase (30-110) U/L Lipase (23-300) U/L Urine Color Urine Appearance (Clear) Urine pH (5.0-8.0) Ur Specific [place] (1.001-1.035) Urine Protein (Negative) Urine Glucose (UA) (Negative) Urine Ketones (Negative) Urine Blood (Negative) Urine Nitrite (Negative) Urine Bilirubin (Negative) Urine Urobilinogen (<2.0) mg/dL Ur Leukocyte Esterase (Negative) Urine RBC (0-5) /hpf Urine WBC (0-5) /hpf Ur Squamous Epith Cells (0-4) /hpf Urine Bacteria (None) /hpf Urine Mucus (None) /hpf 0109/29/19 09/29/19 Range/Units 20:19 06:55 06:55 WBC 4.1 (3.8-10.6) k/uL RBC 4.96 (4.30-5.90) m/uL Hgb 14.4 (13.0-17.5) gm/dL Hct 44.9 (39.0-53.0) % MCV 90.4 (80.0-100.0) fL MCH 29.0 (25.0-35.0) pg MCHC 32.1 (31.0-37.0) g/dL RDW 13.1 (11.5-15.5) % Plt Count 90 L (150-450) k/uL Neutrophils % 71 % Lymphocytes % 15 % Monocytes % 7 % Eosinophils % 4 % Basophils % 1 % Neutrophils # 2.9 (1.3-7.7) k/uL Lymphocytes # 0.6 L (1.0-4.8) k/uL Monocytes # 0.3 (0-1.0) k/uL Eosinophils # 0.2 (0-0.7) k/uL Basophils # 0.0 (0-0.2) k/uL Manual Slide Review Sodium 141 (137-145) mmol/L Potassium 4.6 (3.5-5.1) mmol/L Chloride 106 (98-107) mmol/L Carbon Dioxide 27 (22-30) mmol/L Anion Gap 8 mmol/L BUN 10 (9-20) mg/dL Creatinine 0.88 (0.66-1.25) mg/dL Est GFR (CKD-EPI)AfAm >90 (>60 ml/min/1.73 sqM) Est GFR (CKD-EPI)NonAf >90 (>60 ml/min/1.73 sqM) Glucose 112 H (74-99) mg/dL POC Glucose (mg/dL) 106 H (75-99) mg/dL POC Glu Hand Touch Up Painter ID Ginette Willingham Plasma Lactic Acid [place] (0.7-2.0) mmol/L Calcium 8.7 (8.4-10.2) mg/dL Magnesium 2.1 (1.6-2.3) mg/dL Total Bilirubin (0.2-1.3) mg/dL AST (17-59) U/L ALT (4-49) U/L Alkaline Phosphatase (38-126) U/L Troponin I (0.000-0.034) ng/mL Total Protein (6.3-8.2) g/dL Albumin (3.5-5.0) g/dL Amylase (30-110) U/L Lipase (23-300) U/L Urine Color Urine Appearance (Clear) Urine pH (5.0-8.0) Ur Specific [place] (1.001-1.035) Urine Protein (Negative) Urine Glucose (UA) (Negative) Urine Ketones (Negative) Urine Blood (Negative) Urine Nitrite (Negative) Urine Bilirubin (Negative) Urine Urobilinogen (<2.0) mg/dL Ur Leukocyte Esterase (Negative) Urine RBC (0-5) /hpf Urine WBC (0-5) /hpf Ur Squamous Epith Cells (0-4) /hpf Urine Bacteria (None) /hpf Urine Mucus (None) /hpf 09/29/19 Range/Units 06:59 WBC (3.8-10.6) k/uL RBC (4.30-5.90) m/uL Hgb (13.0-17.5) gm/dL Hct (39.0-53.0) % MCV (80.0-100.0) fL MCH (25.0-35.0) pg MCHC (31.0-37.0) g/dL RDW (11.5-15.5) % Plt Count (150-450) k/uL Neutrophils % % Lymphocytes % % Monocytes % % Eosinophils % % Basophils % % Neutrophils # (1.3-7.7) k/uL Lymphocytes # (1.0-4.8) k/uL Monocytes # (0-1.0) k/uL Eosinophils # (0-0.7) k/uL Basophils # (0-0.2) k/uL Manual Slide Review Sodium (137-145) mmol/L Potassium (3.5-5.1) mmol/L Chloride (98-107) mmol/L Carbon Dioxide (22-30) mmol/L Anion Gap mmol/L BUN (9-20) mg/dL Creatinine (0.66-1.25) mg/dL Est GFR (CKD-EPI)AfAm (>60 ml/min/1.73 sqM) Est GFR (CKD-EPI)NonAf (>60 ml/min/1.73 sqM) Glucose (74-99) mg/dL POC Glucose (mg/dL) 109 H (75-99) mg/dL POC Glu Hand Touch Up Painter ID Brandy Deleon Plasma Lactic Acid [place]anna (0.7-2.0) mmol/L Calcium (8.4-10.2) mg/dL Magnesium (1.6-2.3) mg/dL Total Bilirubin (0.2-1.3) mg/dL AST (17-59) U/L ALT (4-49) U/L Alkaline Phosphatase (38-126) U/L Troponin I (0.000-0.034) ng/mL Total Protein (6.3-8.2) g/dL Albumin (3.5-5.0) g/dL Amylase (30-110) U/L Lipase (23-300) U/L Urine Color Urine Appearance (Clear) Urine pH (5.0-8.0) Ur Specific [place] (1.001-1.035) Urine Protein (Negative) Urine Glucose (UA) (Negative) Urine Ketones (Negative) Urine Blood (Negative) Urine Nitrite (Negative) Urine Bilirubin (Negative) Urine Urobilinogen (<2.0) mg/dL Ur Leukocyte Esterase (Negative) Urine RBC (0-5) /hpf Urine WBC (0-5) /hpf Ur Squamous Epith Cells (0-4) /hpf Urine Bacteria (None) /hpf Urine Mucus (None) /hpf Disposition Clinical Impression: Abdominal pain Disposition: ADMITTED IP TO THIS HOSP Condition: Fair Is patient prescribed a controlled substance at d/c from ED?: No
[2019-09-26 23:23] LABS: ALT 14 U/L (4-49); AST 25 U/L (17-59); African American GFR (CKD) >90 (>60 ml/min/1.73 sqM); Albumin 3.9 g/dL (3.5-5.0); Alkaline Phosphatase 102 U/L (38-126); Amylase 46 U/L (30-110); Anion Gap 9 mmol/L; Blood Urea Nitrogen 16 mg/dL (9-20); Calcium 8.7 mg/dL (8.4-10.2); Carbon Dioxide 25 mmol/L (22-30); Chloride 105 mmol/L (98-107); Glucose 115 mg/dL (74-99); Non-African American GFR(CKD) 87 (>60 ml/min/1.73 sqM); Potassium 4.4 mmol/L (3.5-5.1); Sodium 139 mmol/L (137-145); Total Bilirubin 1.2 mg/dL (0.2-1.3); Total Protein 7.1 g/dL (6.3-8.2)
[2019-09-27 00:08] LABS: Basophils % (A) 1 %; Eosinophils # (A) 0.3 k/uL (0-0.7); Eosinophils % (A) 4 %; HCT 43.6 % (39.0-53.0); HGB 14.6 gm/dL (13.0-17.5); Lymphocytes # (A) 0.8 k/uL (1.0-4.8); Lymphocytes % (A) 14 %; MCH 29.4 pg (25.0-35.0); MCHC 33.4 g/dL (31.0-37.0); Mean Platelet Volume 8.4; Monocytes # (A) 0.4 k/uL (0-1.0); Monocytes % (A) 8 %; Neutrophils # (A) 4.2 k/uL (1.3-7.7); Neutrophils % (A) 72 %; Platelet Count 102 k/uL (150-450); RBC 4.95 m/uL (4.30-5.90); RDW 12.9 % (11.5-15.5); WBC 5.9 k/uL (3.8-10.6)
--- NOTE | 2019-09-27 00:09 | CT ---
EXAMINATION TYPE: CT abdomen pelvis w con DATE OF EXAM: 09/26/2019 COMPARISON: 09/22/2019 HISTORY: Diffuse abd pain CT DLP: [id number] mGycm Automated exposure control for dose reduction was used. CONTRAST: Performed with IV Contrast, patient injected with 100 mL of Isovue 300. Multiple axial sections were obtained from the diaphragm to the floor the pelvis without contrast. There is some patchy mild atelectasis at the lung bases. Heart is enlarged. There is no pericardial e ffusion. There is gastric swelling around the gastric fundus. Stomach is intact. The spleen is large and measures 19 cm. There is no focal liver defect. There is no evidence of pancreatic mass. Bile tylor ts are not dilated. Gallbladder is absent. There is no adrenal mass. Kidneys have normal size. There is normal contrast opacification of the kid neys. There is no hydronephrosis. There are multiple small renal cortical cysts that measure up to 1 cm. There is very little contrast in the renal collecting systems on the delayed images. There is no retroperitoneal adenopathy. Ureters are not dilated. Bladder distends smoothly. There is no inguinal hernia. There is mild prostatic calcification. There is no mesenteric fat stranding. There is small amount of fluid in the paracolic gutters. There is no sign of a bowel obstruction. There is some mild jejunal wall thickening involving a loop in the upper abdomen. There is a loop of jejunum in the left upper quadrant mildly dilated up to 4.5 cm lik inder related to localized ileus. This is the proximal jejunum adjacent to the duodenum. Lumbar vertebra have normal alignment. There is vacuum disc at L4-5 L5-S1. There is no compression fr acture. The bony pelvis is intact. IMPRESSION: Mesenteric fat stranding and minimal ascites fluid not significantly different than last exam. Mild j ejunal wall thickening and dilation in the left upper quadrant unchanged. This could relate to locali zed ileus and enteritis. No free air. Splenomegaly unchanged.
[2019-09-27] MEDS ORDERED: HYDROmorphone 0.5 MG/0.5 ML SYRINGE IVP STA (00:30)
[2019-09-27 01:11] LABS: Appearance,Urine Turbid (Clear); Bacteria,Urine Rare /hpf; Bilirubin,Urine Negative (Negative); Blood,Urine Negative (Negative); Color,Urine Yellow; Glucose,Urine (UA) Negative (Negative); Ketones,Urine Negative (Negative); Leukocyte Esterase,Urine Small (Negative); Mucus,Urine Rare /hpf; Nitrite,Urine Negative (Negative); Protein,Urine Negative (Negative); RBC,Urine <1 /hpf (0-5); Squamous Epithelial Cell,Urine 8 /hpf (0-4); Urobilinogen,Urine <2.0 mg/dL (<2.0); WBC,Urine 20 /hpf (0-5)
[2019-09-27 01:24] LABS: Specific Gravity,Urine >1.050 (1.001-1.035)
[2019-09-27] MEDS ORDERED: MORPHINE SULFATE 4 MG/ML SYRINGE IV PRN (01:50)
[2019-09-27] MEDS ORDERED: NALOXONE 0.4 MG/ML 1 ML VIAL IV PRN (01:50)
[2019-09-27] MEDS ORDERED: ONDANSETRON 4 MG/2 ML VIAL IVP PRN (01:50)
[2019-09-27] MEDS: SODIUM CHLORIDE 0.9% 1,000 ML IV SCH ×4 (02:50→18:07)
[2019-09-27] MEDS: HYDROmorphone 0.5 MG/0.5 ML SYRINGE IVP PRN ×4 (03:37→18:07)
[2019-09-27 07:23] LABS: Glucose,Whole Blood 98 mg/dL (75-99)
[2019-09-27] MEDS: GABAPENTIN 400 MG CAP PO SCH ×4 (08:25→21:50)
[2019-09-27] MEDS: PANTOPRAZOLE 40 MG/10 ML VIAL IV SCH (08:26)
[2019-09-27] MEDS: INSULIN ASPART (NovoLOG) 100 UNIT/ML VIAL SQ SCH ×4 (08:34→21:51)
--- NOTE | 2019-09-27 10:46 | P.GSHP ---
History of Present Illness H&P Date: 09/27/19 Chief Complaint: abdominal pain CHIEF COMPLAINT: abdominal pain HISTORY OF PRESENT ILLNESS: 64 year old male who presents to the ER with a chief complaint of abdominal pain. Patient reports the pain has been present for a few days. He states the pain is throughout his whole abdomen. He denies nausea or vomiting. Denies diarrhea or constipation. He states his pain is tolerable at this time and is requesting something to drink. PAST MEDICAL HISTORY: See list. PAST SURGICAL HISTORY: See list. SOCIAL HISTORY: No illicit drug use. REVIEW OF SYSTEMS: CONSTITUTIONAL: Denies fever or chills. HEENT: Denies blurred vision, vision changes, or eye pain. Denies hemoptysis CARDIOVASCULAR: Denies chest pain or pressure. RESPIRATORY: No shortness of breath. GASTROINTESTINAL: Refer to HPI for pertinent findings HEMATOLOGIC: Denies bleeding disorders. GENITOURINARY: Denies any blood in urine. SKIN: Denies pruitis. Denies rash. PHYSICAL EXAM: VITAL SIGNS: Reviewed. GENERAL: Well-developed in no acute distress. HEENT: No sclera icterus. Extraocular movements grossly intact. Moist buccal mucosa. Head is atraumatic, normocephalic. ABDOMEN: Obese. Soft. Nondistended. Minimal tenderness with palpation. NEUROLOGIC: Alert and oriented. Cranial nerves II through XII grossly intact. LABORATORY DATA: CBC within normal limits IMAGING: CT abdomen and pelvis: Mesenteric fat stranding and minimal ascites fluid had significantly different than last exam. Mild jejunal wall thickening and dilation the left upper quadrant contained. This could relate to a localized ileus or enteritis. No free air. Splenomegaly unchanged. ASSESSMENT: 1. Abdominal pain 2. Enteritis 3. History of lap band PLAN: Dr. Price evaluated patient at the bedside. No surgical intervention recommended. No need for IV antibiotics at this time. Begin clear liquid diet. Will re-evaluate patient tomorrow. Nurse practitioner note has been reviewed by physician. Signing provider agrees with the documented findings, assessment, and plan of care. Past Medical History Past Medical History: Diabetes Mellitus, Hypertension, Osteoarthritis (OA), Sleep Apnea/CPAP/BIPAP Additional Past Medical History / Comment(s): chronic back pain, wound to L foot, cellutitis multiple times in LLE, STATES BLOOD CLOT IN LIVER History of Any Multi-Drug Resistant Organisms: None Reported Past Surgical History: Appendectomy, Back Surgery, Cholecystectomy Additional Past Surgical History / Comment(s): finger surgery, carpal tunnel surgery, L KNEE REPLACEMENT 2010, lap band Past Anesthesia/Blood Transfusion Reactions: No Reported Reaction Past Psychological History: No Psychological Hx Reported Smoking Status: Former smoker Past Alcohol Use History: Rare Past Drug Use History: None Reported - Past Family History Mother Family Medical History: Coronary Artery Disease (CAD), Diabetes Mellitus Father Family Medical History: Coronary Artery Disease (CAD) Brother(s) Family Medical History: Cancer, Coronary Artery Disease (CAD) Additional Family Medical History / Comment(s): PROSTATE CANCER Medications and Allergies Home Medications Medication Instructions Recorded Confirmed Type Aspirin [Adult Low Dose Aspirin EC] 81 mg PO HS 04/19/17 09/27/19 History Gabapentin [Neurontin] 400 mg PO QID 04/19/17 09/27/19 History Atorvastatin [Lipitor] 20 mg PO DAILY 09/14/18 09/27/19 History metFORMIN HCL [metFORMIN HCL ER] 750 mg PO HS 09/14/18 09/27/19 History HYDROcodone/APAP 7.5-325MG [[place] 1 tab PO HS PRN 09/27/19 09/27/19 History 7.5-325] Valsartan 80 mg PO DAILY 09/27/19 09/27/19 History Allergies Allergy/AdvReac Type Severity Reaction Status Date / Time No Known Allergies Allergy Verified 09/27/19 08:13 Surgical - Exam Vital Signs Temp Pulse Resp BP Pulse Ox 98.0 F 77 28 H 198/73 95 09/26/19 22:37 09/26/19 22:37 09/26/19 22:37 09/26/19 22:37 09/26/19 22:37 Results - Labs 09/26/19 23:00 09/26/19 23:00 Abnormal Lab Results - Last 24 Hours (Table) 09/26/19 09/26/19 09/27/19 Range/Units 23:00 23:00 00:50 Plt Count 102 L (150-450) k/uL Lymphocytes # 0.8 L (1.0-4.8) k/uL Glucose 115 H (74-99) mg/dL Ur Specific [place] >1.050 H (1.001-1.035) Ur Leukocyte Esterase Small H (Negative) Urine WBC 20 H (0-5) /hpf Ur Squamous Epith Cells 8 H (0-4) /hpf Urine Bacteria Rare H (None) /hpf Urine Mucus Rare H (None) /hpf Diabetes panel 09/26/19 Range/Units 23:00 Sodium 139 (137-145) mmol/L Potassium 4.4 (3.5-5.1) mmol/L Chloride 105 (98-107) mmol/L Carbon Dioxide 25 (22-30) mmol/L BUN 16 (9-20) mg/dL Creatinine 0.93 (0.66-1.25) mg/dL Glucose 115 H (74-99) mg/dL Calcium 8.7 (8.4-10.2) mg/dL AST 25 (17-59) U/L ALT 14 (4-49) U/L Alkaline Phosphatase 102 (38-126) U/L Total Protein 7.1 (6.3-8.2) g/dL Albumin 3.9 (3.5-5.0) g/dL Calcium panel 09/26/19 Range/Units 23:00 Calcium 8.7 (8.4-10.2) mg/dL Albumin 3.9 (3.5-5.0) g/dL Pituitary panel 09/26/19 Range/Units 23:00 Sodium 139 (137-145) mmol/L Potassium 4.4 (3.5-5.1) mmol/L Chloride 105 (98-107) mmol/L Carbon Dioxide 25 (22-30) mmol/L BUN 16 (9-20) mg/dL Creatinine 0.93 (0.66-1.25) mg/dL Glucose 115 H (74-99) mg/dL Calcium 8.7 (8.4-10.2) mg/dL Adrenal panel 09/26/19 Range/Units 23:00 Sodium 139 (137-145) mmol/L Potassium 4.4 (3.5-5.1) mmol/L Chloride 105 (98-107) mmol/L Carbon Dioxide 25 (22-30) mmol/L BUN 16 (9-20) mg/dL Creatinine 0.93 (0.66-1.25) mg/dL Glucose 115 H (74-99) mg/dL Calcium 8.7 (8.4-10.2) mg/dL Total Bilirubin 1.2 (0.2-1.3) mg/dL AST 25 (17-59) U/L ALT 14 (4-49) U/L Alkaline Phosphatase 102 (38-126) U/L Total Protein 7.1 (6.3-8.2) g/dL Albumin 3.9 (3.5-5.0) g/dL
[2019-09-27 11:54] LABS: Glucose,Whole Blood 92 mg/dL (75-99)
[2019-09-27 17:30] LABS: Glucose,Whole Blood 106 mg/dL (75-99)
[2019-09-27 20:54] LABS: Glucose,Whole Blood 102 mg/dL (75-99)
[2019-09-27] MEDS ORDERED: LOSARTAN 50 MG TAB PO SCH (21:00)
[2019-09-27] MEDS: ASPIRIN 81 MG PO SCH (21:50)
[2019-09-27] MEDS: HEPARIN SODIUM,PORCINE 5,000 UNIT/ML 1 ML VIAL SQ SCH (21:50)
[2019-09-27] MEDS: VALSARTAN 80 MG TAB PO SCH (21:51)
--- NOTE | 2019-09-27 22:07 | P.CONS ---
History of Present Illness - History of Present Illness This is a pleasant 64 years old male with past medical history of diabetes me llitus, hypertension, chronic back pain, osteoarthritis, sleep apnea on CPAP Patient presents with abdominal pain, his pain is in the upper abd close to umbilicus, for more than 7 days, about 8/10 on presentation currently 4/10, no associated nausea or vomiting , no chest pain or dyspnea Hemodynamically stable. including CBC, BMP, liver enzymes are unremarkable. Urine analysis is slightly abnormal. Sugar controlled. CT of the abdomen and pelvis showing mesenteric fat stranding with minimal ascites with mild jejunal wall thickening, and dilatation in the left upper quadrant and change, reji picious for enteritis of localized ileus, splenomegaly Surgical team plan no surgical intervention and keep monitoring Review of Systems CONSTITUTIONAL: No fever, no malaise, no fatigue. HEENT: No recent visual problems or hearing problems. Denied any sore throat. CARDIOVASCULAR: No orthopnea, PND, no palpitations, no syncope. PULMONARY: No shortness of breath, no cough, no hemoptysis. GASTROINTESTINAL: No diarrhea, no nausea, no vomiting, no abdominal pain. Normoactive bowel sounds. NEUROLOGICAL: No headaches, no weakness, no numbness. HEMATOLOGICAL: Denies any bleeding or petechiae. GENITOURINARY: Denies any burning micturition, frequency, or urgency. MUSCULOSKELETAL/RHEUMATOLOGICAL: Denies any joint pain, swelling, or any muscle pain. ENDOCRINE: Denies any polyuria or polydipsia. Past Medical History Past Medical History: Diabetes Mellitus, Hypertension, Osteoarthritis (OA), Sleep Apnea/CPAP/BIPAP Additional Past Medical History / Comment(s): chronic back pain, wound to L f oot, cellutitis multiple times in LLE, STATES BLOOD CLOT IN LIVER History of Any Multi-Drug Resistant Organisms: None Reported Past Surgical History: Appendectomy, Back Surgery, Cholecystectomy Additional Past Surgical History / Comment(s): finger surgery, carpal tunnel surgery, L KNEE REPLACEMENT 2010, lap band Past Anesthesia/Blood Transfusion Reactions: No Reported Reaction Past Psychological History: No Psychological Hx Reported Smoking Status: Former smoker Past Alcohol Use History: Rare Past Drug Use History: None Reported - Past Family History Mother Family Medical History: Coronary Artery Disease (CAD), Diabetes Mellitus Father Family Medical History: Coronary Artery Disease (CAD) Brother(s) Family Medical History: Cancer, Coronary Artery Disease (CAD) Additional Family Medical History / Comment(s): PROSTATE CANCER Medications and Allergies Home Medications Medication Instructions Recorded Confirmed Type Aspirin [Adult Low Dose Aspirin EC] 81 mg PO HS 04/19/17 09/27/19 History Gabapentin [Neurontin] 400 mg PO QID 04/19/17 09/27/19 History Atorvastatin [Lipitor] 20 mg PO DAILY 09/14/18 09/27/19 History metFORMIN HCL [metFORMIN HCL ER] 750 mg PO HS 09/14/18 09/27/19 History HYDROcodone/APAP 7.5-325MG [[place] 1 tab PO HS PRN 09/27/19 09/27/19 History 7.5-325] Valsartan 80 mg PO DAILY 09/27/19 09/27/19 History Allergies Allergy/AdvReac Type Severity Reaction Status Date / Time No Known Allergies Allergy Verified 09/27/19 08:13 Physical Exam Vitals: Vital Signs Temp Pulse Pulse Resp BP BP Pulse Ox 09/27/19 07:00 98.4 F 59 L 12 111/64 97 09/27/19 03:43 16 09/27/19 03:08 97.6 F 65 18 124/77 96 09/27/19 02:39 67 18 105/68 95 09/27/19 00:00 70 17 112/68 95 09/26/19 22:37 98.0 F 77 28 H 198/73 95 Intake and Output 09/26/19 09/27/19 09/27/19 22:59 06:59 14:59 Other: Voiding Method Toilet Weight 150.91 kg 150.91 kg GENERAL: The patient is alert and oriented x3, not in any acute distress. Well developed, well nourished. HEENT: Pupils are round and equally reacting to light. EOMI. No scleral icterus. No conjunctival pallor. Normocephalic, atraumatic. No pharyngeal erythema. No thyromegaly. CARDIOVASCULAR: S1 and S2 present. No murmurs, rubs, or gallops. PULMONARY: Chest is clear to auscultation, no wheezing or crackles. ABDOMEN: Soft, nontender, nondistended, normoactive bowel sounds. No palpable organomegaly. MUSCULOSKELETAL: No joint swelling or deformity. EXTREMITIES: No cyanosis, clubbing, or pedal edema. NEUROLOGICAL: Gross neurological examination did not reveal any focal deficits. SKIN: No rashes. No petechiae Results CBC & Chem 7: 09/26/19 23:00 09/26/19 23:00 Labs: Abnormal Lab Results - Last 24 Hours (Table) 09/26/19 09/26/19 09/27/19 Range/Units 23:00 23:00 00:50 Plt Count 102 L (150-450) k/uL Lymphocytes # 0.8 L (1.0-4.8) k/uL Glucose 115 H (74-99) mg/dL Ur Specific [place] >1.050 H (1.001-1.035) Ur Leukocyte Esterase Small H (Negative) Urine WBC 20 H (0-5) /hpf Ur Squamous Epith Cells 8 H (0-4) /hpf Urine Bacteria Rare H (None) /hpf Urine Mucus Rare H (None) /hpf Assessment and Plan Assessment: Gastroenteritis, with jejunal enteritis versus ileus spleenomegaly Diabetes mellitus Hypertension Chronic back pain Splenomegaly Osteoarthritis Sleep apnea on CPAP Plan: this is a pleasant 64 years old male who presents with signs symptoms of enteritis/ileus. Continue with symptomatic treatment. Continue with IV fluids. Bowel rest, currently on clear liquid diet and advance as tolerated Labs and medication were reviewed.. Continue same treatment. Continue with symptomatic treatment. Resume home medication. Monitor lytes and vitals. DVT and GI prophylaxis. Further recommendations of the clinical course of the patient DVT prophylaxis: Subcutaneous heparin GI Prophylaxis: Protonix Prognosis is guarded
[2019-09-28] MEDS: HYDROmorphone 0.5 MG/0.5 ML SYRINGE IVP PRN (00:44)
[2019-09-28 06:53] LABS: Basophils % (A) 1 %; Eosinophils # (A) 0.2 k/uL (0-0.7); Eosinophils % (A) 4 %; HCT 41.9 % (39.0-53.0); Lymphocytes # (A) 0.7 k/uL (1.0-4.8); Lymphocytes % (A) 15 %; MCH 30.1 pg (25.0-35.0); MCHC 33.5 g/dL (31.0-37.0); MCV 89.9 fL (80.0-100.0); Mean Platelet Volume 9.1; Monocytes # (A) 0.3 k/uL (0-1.0); Monocytes % (A) 7 %; Neutrophils # (A) 3.3 k/uL (1.3-7.7); Neutrophils % (A) 72 %; RBC 4.66 m/uL (4.30-5.90); RDW 13.1 % (11.5-15.5); WBC 4.7 k/uL (3.8-10.6)
[2019-09-28 06:58] LABS: African American GFR (CKD) >90 (>60 ml/min/1.73 sqM); Anion Gap 6 mmol/L; Blood Urea Nitrogen 12 mg/dL (9-20); Calcium 8.3 mg/dL (8.4-10.2); Carbon Dioxide 28 mmol/L (22-30); Chloride 105 mmol/L (98-107); Glucose 99 mg/dL (74-99); Non-African American GFR(CKD) >90 (>60 ml/min/1.73 sqM); Potassium 4.7 mmol/L (3.5-5.1); Sodium 139 mmol/L (137-145)
[2019-09-28 07:06] LABS: Platelet Count 96 k/uL (150-450)
[2019-09-28 07:10] LABS: Glucose,Whole Blood 102 mg/dL (75-99)
[2019-09-28] MEDS: INSULIN ASPART (NovoLOG) 100 UNIT/ML VIAL SQ SCH ×4 (07:20→21:42)
[2019-09-28] MEDS: PANTOPRAZOLE 40 MG/10 ML VIAL IV SCH (09:43)
[2019-09-28] MEDS: GABAPENTIN 400 MG CAP PO SCH ×4 (09:44→22:35)
[2019-09-28] MEDS: HEPARIN SODIUM,PORCINE 5,000 UNIT/ML 1 ML VIAL SQ SCH ×2 (09:44→20:06)
--- NOTE | 2019-09-28 10:17 | P.PN ---
Subjective This is a pleasant 64 years old male with past medical history of diabetes mellitus, hypertension, chronic back pain, osteoarthritis, sleep apnea on CPAP Patient presents with abdominal pain, his pain is in the upper abd close to umbilicus, for more than 7 days, about 8/10 on presentation currently 4/10, no associated nausea or vomiting , no chest pain or dyspnea Hemodynamically stable. including CBC, BMP, liver enzymes are unremarkable. Urine analysis is slightly abnormal. Sugar controlled. CT of the abdomen and pelvis showing mesenteric fat stranding with minimal ascites with mild jejunal wall thickening, and dilatation in the left upper quadrant and change, suspicious for enteritis of localized ileus, splenomegaly Surgical team plan no surgical intervention and keep monitoring 09/28/2019 Patient feels better, hysterectomy liquid diets and is willing to advanced with regular diet. He had 2 bowel movement this morning and they were soft but improved from 20 bowel movements 2 days ago. No nausea vomiting. His abdominal pain is about 3/10 which is improved compared to yesterday. His walking in the room and had the shower. No chest pain or dyspnea. Computed tomography scan also shows splenomegaly, also seen in CAT scan in 2017. Patient was instructed to follow up with hematology as an outpatient and he agrees Vital signs stable. Labs unremarkable. Objective - Vital Signs Vital signs: Vital Signs Temp 98.1 F 09/28/19 07:00 Pulse 55 L 09/28/19 07:00 Resp 17 09/28/19 07:00 BP 128/81 09/28/19 07:00 Pulse Ox 93 L 09/28/19 07:00 Intake & Output 09/27/19 09/28/19 09/28/19 18:59 06:59 18:59 Intake Total 1200 Balance 1200 Intake: Intake, IV Titration 1200 Amount Sodium Chloride 0.9% 1, 1200 000 ml @ 75 mls/hr IV . [id number] Rx#:[id number] Other: Voiding Method Toilet Toilet - Exam GENERAL: The patient is alert and oriented x3, not in any acute distress. Well developed, well nourished. HEENT: Pupils are round and equally reacting to light. EOMI. No scleral icterus. No conjunctival pallor. Normocephalic, atraumatic. No pharyngeal erythema. No thyromegaly. CARDIOVASCULAR: S1 and S2 present. No murmurs, rubs, or gallops. PULMONARY: Chest is clear to auscultation, no wheezing or crackles. -ABDOMEN: Soft, mild upper abdominal tenderness, better than yesterday, nondistended, normoactive bowel sounds. No palpable organomegaly. MUSCULOSKELETAL: No joint swelling or deformity. EXTREMITIES: No cyanosis, clubbing, or pedal edema. NEUROLOGICAL: Gross neurological examination did not reveal any focal deficits. SKIN: No rashes. No petechiae - Labs CBC & Chem 7: 09/28/19 06:12 09/28/19 06:12 Labs: Abnormal Lab Results - Last 24 Hours (Table) 09/27/19 09/27/19 09/28/19 Range/Units 17:17 20:43 06:12 Plt Count 96 L (150-450) k/uL Lymphocytes # 0.7 L (1.0-4.8) k/uL POC Glucose (mg/dL) 106 H 102 H (75-99) mg/dL Calcium (8.4-10.2) mg/dL 09/28/19 09/28/19 Range/Units 06:12 06:58 Plt Count (150-450) k/uL Lymphocytes # (1.0-4.8) k/uL POC Glucose (mg/dL) 102 H (75-99) mg/dL Calcium 8.3 L (8.4-10.2) mg/dL Assessment and Plan Assessment: Gastroenteritis, with jejunal enteritis versus ileus spleenomegaly, chronic Diabetes mellitus Hypertension Chronic back pain Splenomegaly Osteoarthritis Sleep apnea on CPAP Plan: this is a pleasant 64 years old male who presents with signs symptoms of enter itis/ileus. Continue with symptomatic treatment. Continue with IV fluids. currently on clear liquid diet and advance as tolerated . Patient might benefit from a hematological evaluation which can be done as an outpatient for his splenomegaly Labs and medication were reviewed.. Continue same treatment. Continue with symptomatic treatment. Resume home medication. Monitor lytes and vitals. DVT and GI prophylaxis. Further recommendations of the clinical course of the patient DVT prophylaxis: Subcutaneous heparin GI Prophylaxis: Protonix Thank you for consulting us.
--- NOTE | 2019-09-28 11:36 | P.PN ---
<Kisha Zambrano - Last Filed: 09/28/19 11:33> Subjective Progress Note Date: 09/28/19 CHIEF COMPLAINT: abdominal pain HISTORY OF PRESENT ILLNESS: Patient examined this morning at the bedside. He reports improvement in abdominal pain. He is tolerating clear liquid diet. Denies nausea or vomiting. Reports 2 formed bowel movements this morning. Vital signs stable. He is afebrile. PHYSICAL EXAM: VITAL SIGNS: Reviewed. GENERAL: Well-developed in no acute distress. HEENT: No sclera icterus. Extraocular movements grossly intact. Moist buccal mucosa. Head is atraumatic, normocephalic. ABDOMEN: Obese. Soft. Nondistended. Nontender. NEUROLOGIC: Alert and oriented. Cranial nerves II through XII grossly intact. ASSESSMENT: 1. Abdominal pain 2. Enteritis 3. History of lap band PLAN: Advance diet If patient tolerates, likely DC home this afternoon after he is re-evaluated by Dr. Pearson Nurse practitioner note has been reviewed by physician. Signing provider agrees with the documented findings, assessment, and plan of care. Objective - Vital Signs Vital signs: Vital Signs Temp 98.1 F 09/28/19 07:00 Pulse 55 L 09/28/19 07:00 Resp 17 09/28/19 07:00 BP 128/81 09/28/19 07:00 Pulse Ox 93 L 09/28/19 07:00 Intake & Output 09/27/19 09/28/19 09/28/19 18:59 06:59 18:59 Intake Total 1200 Balance 1200 Intake: Intake, IV Titration 1200 Amount Sodium Chloride 0.9% 1, 1200 000 ml @ 75 mls/hr IV . [id number] [facility] Rx#:[id number] Other: Voiding Method Toilet Toilet - Labs CBC & Chem 7: 09/28/19 06:12 09/28/19 06:12 Labs: Abnormal Lab Results - Last 24 Hours (Table) 09/27/19 09/27/19 09/28/19 Range/Units 17:17 20:43 06:12 Plt Count 96 L (150-450) k/uL Lymphocytes # 0.7 L (1.0-4.8) k/uL POC Glucose (mg/dL) 106 H 102 H (75-99) mg/dL Calcium (8.4-10.2) mg/dL 09/28/19 09/28/19 Range/Units 06:12 06:58 Plt Count (150-450) k/uL Lymphocytes # (1.0-4.8) k/uL POC Glucose (mg/dL) 102 H (75-99) mg/dL Calcium 8.3 L (8.4-10.2) mg/dL <Jamey Pearson - Last Filed: 09/28/19 15:13> Subjective As above. Patient states that after lunch she had increased epigastric abdominal pain once again. 2 separate CAT scans showing mild inflammation. Will order upper GI small bowel series. Continue clear liquids for now. Objective - Vital Signs Vital signs: Vital Signs Temp 98.3 F 09/28/19 14:36 Pulse 61 09/28/19 14:36 Resp 17 09/28/19 14:36 BP 121/71 09/28/19 14:36 Pulse Ox 96 09/28/19 14:36 Intake & Output 09/27/19 09/28/19 09/28/19 18:59 06:59 18:59 Intake Total 1200 1325 Balance 1200 1325 Intake: Intake, IV Titration 1200 525 Amount Sodium Chloride 0.9% 1, 1200 525 000 ml @ 75 mls/hr IV . [id number] [facility] Rx#:[id number] Oral 800 Other: Voiding Method Toilet Toilet - Labs CBC & Chem 7: 09/28/19 06:12 09/28/19 06:12 Labs: Abnormal Lab Results - Last 24 Hours (Table) 09/27/19 09/27/19 09/28/19 Range/Units 17:17 20:43 06:12 Plt Count 96 L (150-450) k/uL Lymphocytes # 0.7 L (1.0-4.8) k/uL POC Glucose (mg/dL) 106 H 102 H (75-99) mg/dL Calcium (8.4-10.2) mg/dL 09/28/19 09/28/19 Range/Units 06:12 06:58 Plt Count (150-450) k/uL Lymphocytes # (1.0-4.8) k/uL POC Glucose (mg/dL) 102 H (75-99) mg/dL Calcium 8.3 L (8.4-10.2) mg/dL
[2019-09-28 11:43] LABS: Glucose,Whole Blood 83 mg/dL (75-99)
[2019-09-28 17:07] LABS: Glucose,Whole Blood 80 mg/dL (75-99)
[2019-09-28] MEDS: SODIUM CHLORIDE 0.9% 1,000 ML IV SCH (17:39)
[2019-09-28] MEDS: VALSARTAN 80 MG TAB PO SCH (20:06)
[2019-09-28] MEDS: ASPIRIN 81 MG PO SCH (20:06)
[2019-09-28 20:30] LABS: Glucose,Whole Blood 106 mg/dL (75-99)
[2019-09-29 07:11] LABS: Glucose,Whole Blood 109 mg/dL (75-99)
[2019-09-29] MEDS: INSULIN ASPART (NovoLOG) 100 UNIT/ML VIAL SQ SCH ×4 (07:13→21:40)
[2019-09-29 07:49] LABS: Basophils % (A) 1 %; Eosinophils # (A) 0.2 k/uL (0-0.7); Eosinophils % (A) 4 %; HCT 44.9 % (39.0-53.0); HGB 14.4 gm/dL (13.0-17.5); Lymphocytes # (A) 0.6 k/uL (1.0-4.8); Lymphocytes % (A) 15 %; MCHC 32.1 g/dL (31.0-37.0); MCV 90.4 fL (80.0-100.0); Monocytes # (A) 0.3 k/uL (0-1.0); Monocytes % (A) 7 %; Neutrophils # (A) 2.9 k/uL (1.3-7.7); Neutrophils % (A) 71 %; RBC 4.96 m/uL (4.30-5.90); RDW 13.1 % (11.5-15.5); WBC 4.1 k/uL (3.8-10.6)
[2019-09-29] MEDS: HEPARIN SODIUM,PORCINE 5,000 UNIT/ML 1 ML VIAL SQ SCH ×2 (07:54→21:43)
[2019-09-29] MEDS: GABAPENTIN 400 MG CAP PO SCH ×4 (07:54→21:39)
[2019-09-29] MEDS: PANTOPRAZOLE 40 MG TABLET PO SCH (07:54)
[2019-09-29] MEDS: SODIUM CHLORIDE 0.9% 1,000 ML IV SCH ×2 (07:55→20:49)
[2019-09-29 07:58] LABS: African American GFR (CKD) >90 (>60 ml/min/1.73 sqM); Anion Gap 8 mmol/L; Blood Urea Nitrogen 10 mg/dL (9-20); Calcium 8.7 mg/dL (8.4-10.2); Carbon Dioxide 27 mmol/L (22-30); Chloride 106 mmol/L (98-107); Glucose 112 mg/dL (74-99); Magnesium 2.1 mg/dL (1.6-2.3); Non-African American GFR(CKD) >90 (>60 ml/min/1.73 sqM); Potassium 4.6 mmol/L (3.5-5.1); Sodium 141 mmol/L (137-145)
[2019-09-29 08:00] LABS: Platelet Count 90 k/uL (150-450)
[2019-09-29 11:51] LABS: Glucose,Whole Blood 81 mg/dL (75-99)
--- NOTE | 2019-09-29 12:50 | P.PN ---
Subjective This is a pleasant 64 years old male with past medical history of diabetes mellitus, hypertension, chronic back pain, osteoarthritis, sleep apnea on CPAP Patient presents with abdominal pain, his pain is in the upper abd close to umbilicus, for more than 7 days, about 8/10 on presentation currently 4/10, no associated nausea or vomiting , no chest pain or dyspnea Hemodynamically stable. including CBC, BMP, liver enzymes are unremarkable. Urine analysis is slightly abnormal. Sugar controlled. CT of the abdomen and pelvis showing mesenteric fat stranding with minimal ascites with mild jejunal wall thickening, and dilatation in the left upper quadrant and change, suspicious for enteritis of localized ileus, splenomegaly Surgical team plan no surgical intervention and keep monitoring 09/28/2019 Patient feels better, hysterectomy liquid diets and is willing to advanced with regular diet. He had 2 bowel movement this morning and they were soft but improved from 20 bowel movements 2 days ago. No nausea vomiting. His abdominal pain is about 3/10 which is improved compared to yesterday. His walking in the room and had the shower. No chest pain or dyspnea. Computed tomography scan also shows splenomegaly, also seen in CAT scan in 2017. Patient was instructed to follow up with hematology as an outpatient and he agrees Vital signs stable. Labs unremarkable. 09/29/2019 Patient recommended to have upper GI series however he ate his breakfast this morning so that this was postponed till tomorrow morning. Patient generally feels his abdominal pain is less, he has semisolid bowel movement 1, no nausea vomiting and he tolerated diet well. No other new complaints . Labs are stable . Patient is aware about his enlarged. And he is to follow up as an outpatient Objective - Vital Signs Vital signs: Vital Signs Temp 98.4 F 09/29/19 07:00 Pulse 59 L 09/29/19 07:00 Resp 16 09/29/19 07:00 BP 138/74 09/29/19 07:00 Pulse Ox 96 09/29/19 07:00 Intake & Output 09/28/19 09/29/19 09/29/19 18:59 06:59 18:59 Intake Total 1325 450 Balance 1325 450 Intake: Intake, IV Titration 525 Amount Sodium Chloride 0.9% 1, 525 000 ml @ 75 mls/hr IV . [id number] [facility] Rx#:[id number] Oral 800 450 Other: Voiding Method Toilet Toilet # Voids 1 - Exam GENERAL: The patient is alert and oriented x3, not in any acute distress. Well developed, well nourished. HEENT: Pupils are round and equally reacting to light. EOMI. No scleral icterus. No conjunctival pallor. Normocephalic, atraumatic. No pharyngeal erythema. No thyromegaly. CARDIOVASCULAR: S1 and S2 present. No murmurs, rubs, or gallops. PULMONARY: Chest is clear to auscultation, no wheezing or crackles. -ABDOMEN: Soft, mild upper abdominal tenderness, better than yesterday, nondistended, normoactive bowel sounds. No palpable organomegaly. MUSCULOSKELETAL: No joint swelling or deformity. EXTREMITIES: No cyanosis, clubbing, or pedal edema. NEUROLOGICAL: Gross neurological examination did not reveal any focal deficits. SKIN: No rashes. No petechiae - Labs CBC & Chem 7: 09/29/19 06:55 09/29/19 06:55 Labs: Abnormal Lab Results - Last 24 Hours (Table) 09/28/19 09/29/19 09/29/19 Range/Units 20:19 06:55 06:55 Plt Count 90 L (150-450) k/uL Lymphocytes # 0.6 L (1.0-4.8) k/uL Glucose 112 H (74-99) mg/dL POC Glucose (mg/dL) 106 H (75-99) mg/dL 09/29/19 Range/Units 06:59 Plt Count (150-450) k/uL Lymphocytes # (1.0-4.8) k/uL Glucose (74-99) mg/dL POC Glucose (mg/dL) 109 H (75-99) mg/dL Assessment and Plan Assessment: Gastroenteritis, with jejunal enteritis versus ileus spleenomegaly, chronic Diabetes mellitus Hypertension Chronic back pain Splenomegaly Osteoarthritis Sleep apnea on CPAP Plan: this is a pleasant 64 years old male who presents with signs symptoms of enteritis/ileus. Continue with symptomatic treatment. Continue with IV fluids. currently on clear liquid diet and advance as tolerated . Patient might benefit from a hematological evaluation which can be done as an outpatient for his splenomegaly Labs and medication were reviewed.. Continue same treatment. Continue with symptomatic treatment. Resume home medication. Monitor lytes and vitals. DVT and GI prophylaxis. Further recommendations of the clinical course of the patient DVT prophylaxis: Subcutaneous heparin GI Prophylaxis: Protonix Thank you for consulting us.
[2019-09-29 16:56] LABS: Glucose,Whole Blood 95 mg/dL (75-99)
--- NOTE | 2019-09-29 18:37 | P.PN ---
Subjective Progress Note Date: 09/29/19 CHIEF COMPLAINT: Epigastric abdominal pain HISTORY OF PRESENT ILLNESS: The patient is a 64-year-old who reports epigastric including bilateral upper abdominal pain moderately improved since admission. He is tolerating liquids. He has more intolerance to soft or textured food. Upper GI discontinued from this morning as he had a meal. Otherwise he stable. ROS: No fevers or chills. No new chest pain. PHYSICAL EXAM: VITAL SIGNS: Reviewed CONSTITUTIONAL: Well developed and in no acute distress. EYES: Conjuctivae without sclera icterus. Extraocular movements grossly intact. HEAD, EARS, NOSE, THROAT: Moist buccal mucosa. Head is atraumatic, normocephalic. Hears conversational speech. NECK: Supple. RESPIRATORY: Non-labored respirations and equal bilateral excursions. CARDIOVASCULAR: Palpable 2+ radial pulses. ABDOMEN: Soft. No peritonitis. Tender epigastrium, mild MUSCULOSKELETAL: No gross deformity of the lower extremities noted. No clubbing. No cyanosis. SKIN: Good skin turgor. Well perfused. NEUROLOGIC: Cranial nerves I through XII grossly intact. No focal or lateralizing signs. PSYCH: Alert and oriented to person, place and time. Appropriate affect CLINICAL LABS: WBC 4,100 STUDIES: CT abdomen and pelvis independently reviewed show no obstruction or f ree air. Gastric band present. Small hiatal hernia. REPORT: Findings consistent with ileus and mesenteric inflammation mild upper abdomen. ASSESSMENT: 1. Epigastric pain 2. History of adjustable gastric band 3. Morbid obesity PLAN: 1. Upper GI rescheduled for tomorrow. 2. Nothing by mouth after midnight for procedure. Objective - Vital Signs Vital signs: Vital Signs Temp 97.8 F 09/29/19 15:00 Pulse 60 09/29/19 15:00 Resp 16 09/29/19 15:00 BP 142/81 09/29/19 15:00 Pulse Ox 96 09/29/19 15:00 Intake & Output 09/28/19 09/29/19 09/29/19 18:59 06:59 18:59 Intake Total 1325 450 600 Balance 1325 450 600 Intake: Intake, IV Titration 525 600 Amount Sodium Chloride 0.9% 1, 525 600 000 ml @ 75 mls/hr IV . [id number] [facility] Rx#:[id number] Oral 800 450 Other: Voiding Method Toilet Toilet # Voids 1 - Labs CBC & Chem 7: 09/29/19 06:55 09/29/19 06:55 Labs: Abnormal Lab Results - Last 24 Hours (Table) 09/28/19 09/29/19 09/29/19 Range/Units 20:19 06:55 06:55 Plt Count 90 L (150-450) k/uL Lymphocytes # 0.6 L (1.0-4.8) k/uL Glucose 112 H (74-99) mg/dL POC Glucose (mg/dL) 106 H (75-99) mg/dL 09/29/19 Range/Units 06:59 Plt Count (150-450) k/uL Lymphocytes # (1.0-4.8) k/uL Glucose (74-99) mg/dL POC Glucose (mg/dL) 109 H (75-99) mg/dL Assessment and Plan (1) History of adjustable gastric banding Current Visit: Yes Status: Acute Code(s): Z98.84 - BARIATRIC SURGERY STATUS SNOMED Code(s): 636378846 (2) Ileus Current Visit: Yes Status: Acute Code(s): K56.7 - ILEUS, UNSPECIFIED SNOMED Code(s): 484431435 (3) Morbid obesity due to excess calories Current Visit: Yes Status: Acute Code(s): E66.01 - MORBID (SEVERE) OBESITY DUE TO EXCESS CALORIES SNOMED Code(s): 432308288 (4) BMI 50.0-59.9, adult Current Visit: Yes Status: Acute Code(s): Z68.43 - BODY MASS INDEX (BMI) 50.0-59.9, ADULT SNOMED Code(s): 344567809 (5) Abdominal pain Current Visit: Yes Status: Acute Code(s): R10.9 - UNSPECIFIED ABDOMINAL PAIN SNOMED Code(s): 42724172 (6) Enteritis Current Visit: No Status: Acute Code(s): K52.9 - NONINFECTIVE GASTROENTERITIS AND COLITIS, UNSPECIFIED SNOMED Code(s): 24316228
[2019-09-29 20:25] LABS: Glucose,Whole Blood 135 mg/dL (75-99)
[2019-09-29] MEDS: ASPIRIN 81 MG PO SCH (21:40)
[2019-09-29] MEDS: VALSARTAN 80 MG TAB PO SCH (23:10)
[2019-09-30 06:32] LABS: Basophils % (A) 1 %; Eosinophils # (A) 0.2 k/uL (0-0.7); Eosinophils % (A) 4 %; HCT 44.6 % (39.0-53.0); HGB 14.4 gm/dL (13.0-17.5); Lymphocytes # (A) 0.8 k/uL (1.0-4.8); Lymphocytes % (A) 19 %; MCH 28.9 pg (25.0-35.0); MCHC 32.3 g/dL (31.0-37.0); MCV 89.5 fL (80.0-100.0); Mean Platelet Volume 8.9; Monocytes # (A) 0.3 k/uL (0-1.0); Monocytes % (A) 7 %; Neutrophils % (A) 69 %; Platelet Count 105 k/uL (150-450); RBC 4.98 m/uL (4.30-5.90); RDW 12.9 % (11.5-15.5); WBC 4.4 k/uL (3.8-10.6)
[2019-09-30 06:44] LABS: African American GFR (CKD) >90 (>60 ml/min/1.73 sqM); Anion Gap 5 mmol/L; Blood Urea Nitrogen 8 mg/dL (9-20); Calcium 8.7 mg/dL (8.4-10.2); Carbon Dioxide 29 mmol/L (22-30); Chloride 106 mmol/L (98-107); Glucose 110 mg/dL (74-99); Magnesium 1.9 mg/dL (1.6-2.3); Non-African American GFR(CKD) >90 (>60 ml/min/1.73 sqM); Potassium 4.7 mmol/L (3.5-5.1); Sodium 140 mmol/L (137-145)
--- NOTE | 2019-09-30 08:57 | FL ---
EXAMINATION TYPE: FL UGI w small bowel DATE OF EXAM: 09/30/2019 COMPARISON: NONE HISTORY: Lower abdominal pain. TECHNIQUE: A double contrast UGI study is performed with small bowel follow through. FINDINGS: Transportation Design Engineer image of the abdomen shows no gross abnormality. The esophagus shows normal motility and emptying into the stomach. No evidence of hiatal hernia or s tricture noted. The stomach shows normal distensibility, peristalsis, and mucosal folds. No evidence of any mass or ulcer disease. No significant esophageal reflux was seen during real time performance of this study. The duodenal bulb and sweep are unremarkable. The small bowel study shows normal transit to the colon in less than 30 minutes. The distal ileum is abnormal with abnormal full-thickness and some apparent stricturing. The proximal ascending colon als o appears somewhat irregular but this may be due to lack of distention. Incidental note is made of degenerative changes within the spine. IMPRESSION: 1. ABNORMAL TERMINAL ILEUM SUGGESTIVE OF CROHN'S DISEASE. OTHER CAUSES REDUCTION WAS INFECTIOUS CAUSE S SUCH GIARDIASIS AND URETERS HERNIA COULD ALSO GIVE THIS APPEARANCE. AMYLOIDOSIS AND OTHER INFILT RATING DISEASES COULD GIVE THIS APPEARANCE. 2. SATISFACTORY LAP BAND IN APPEARANCE.
[2019-09-30 09:01] LABS: Glucose,Whole Blood 112 mg/dL (75-99)
[2019-09-30] MEDS: INSULIN ASPART (NovoLOG) 100 UNIT/ML VIAL SQ SCH ×4 (09:03→21:44)
[2019-09-30] MEDS: HEPARIN SODIUM,PORCINE 5,000 UNIT/ML 1 ML VIAL SQ SCH ×2 (09:05→21:49)
[2019-09-30] MEDS: PANTOPRAZOLE 40 MG TABLET PO SCH (09:05)
[2019-09-30] MEDS: GABAPENTIN 400 MG CAP PO SCH ×4 (09:05→21:49)
[2019-09-30 11:51] LABS: Glucose,Whole Blood 136 mg/dL (75-99)
--- NOTE | 2019-09-30 11:56 | P.PN ---
Subjective This is a pleasant 64 years old male with past medical history of diabetes mellitus, hypertension, chronic back pain, osteoarthritis, sleep apnea on CPAP Patient presents with abdominal pain, his pain is in the upper abd close to umbilicus, for more than 7 days, about 8/10 on presentation currently 4/10, no associated nausea or vomiting , no chest pain or dyspnea Hemodynamically stable. including CBC, BMP, liver enzymes are unremarkable. Urine analysis is slightly abnormal. Sugar controlled. CT of the abdomen and pelvis showing mesenteric fat stranding with minimal ascites with mild jejunal wall thickening, and dilatation in the left upper quadrant and change, suspicious for enteritis of localized ileus, splenomegaly Surgical team plan no surgical intervention and keep monitoring 09/28/2019 Patient feels better, hysterectomy liquid diets and is willing to advanced with regular diet. He had 2 bowel movement this morning and they were soft but improved from 20 bowel movements 2 days ago. No nausea vomiting. His abdominal pain is about 3/10 which is improved compared to yesterday. His walking in the room and had the shower. No chest pain or dyspnea. Computed tomography scan also shows splenomegaly, also seen in CAT scan in 2017. Patient was instructed to follow up with hematology as an outpatient and he agrees Vital signs stable. Labs unremarkable. 09/29/2019 Patient recommended to have upper GI series however he ate his breakfast this morning so that this was postponed till tomorrow morning. Patient generally feels his abdominal pain is less, he has semisolid bowel movement 1, no nausea vomiting and he tolerated diet well. No other new complaints . Labs are stable . Patient is aware about his enlarged. And he is to follow up as an outpatient 09/30/2019 Patient basically has been the same for the last 2 days with mild symptoms of upper abdominal discomfort/pain and 1-2 kind of loose bowel movement but not like when he came in. He is tolerating that well with no nausea vomiting. Hemodynamically stable. He had upper GI small series showing abnormal terminal ileum suggestive of Crohn's disease versus others, see the full report by radiologist Objective - Vital Signs Vital signs: Vital Signs Temp 97.8 F 09/30/19 09:12 Pulse 56 L 09/30/19 09:12 Resp 16 09/30/19 09:12 BP 127/76 09/30/19 09:12 Pulse Ox 97 09/30/19 09:12 Intake & Output 09/29/19 09/30/19 09/30/19 18:59 06:59 18:59 Intake Total 600 1000 Balance 600 1000 Intake: IV 1000 Sodium Chloride 0.9% 1, 1000 000 ml @ 50 mls/hr IV . Q20H [facility] Rx#:[id number] Intake, IV Titration 600 Amount Sodium Chloride 0.9% 1, 600 000 ml @ 50 mls/hr IV . Q20H [facility] Rx#:[id number] Other: # Voids 2 - Exam GENERAL: The patient is alert and oriented x3, not in any acute distress. Well developed, well nourished. HEENT: Pupils are round and equally reacting to light. EOMI. No scleral icterus. No conjunctival pallor. Normocephalic, atraumatic. No pharyngeal erythema. No thyromegaly. CARDIOVASCULAR: S1 and S2 present. No murmurs, rubs, or gallops. PULMONARY: Chest is clear to auscultation, no wheezing or crackles. -ABDOMEN: Soft, mild upper abdominal tenderness, better than yesterday, nondistended, normoactive bowel sounds. No palpable organomegaly. MUSCULOSKELETAL: No joint swelling or deformity. EXTREMITIES: No cyanosis, clubbing, or pedal edema. NEUROLOGICAL: Gross neurological examination did not reveal any focal deficits. SKIN: No rashes. No petechiae - Labs CBC & Chem 7: 09/30/19 06:06 09/30/19 06:06 Labs: Abnormal Lab Results - Last 24 Hours (Table) 09/29/19 09/30/19 09/30/19 Range/Units 20:14 06:06 06:06 Plt Count 105 L (150-450) k/uL Lymphocytes # 0.8 L (1.0-4.8) k/uL BUN 8 L (9-20) mg/dL Glucose 110 H (74-99) mg/dL POC Glucose (mg/dL) 135 H (75-99) mg/dL 09/30/19 09/30/19 Range/Units 08:50 11:40 Plt Count (150-450) k/uL Lymphocytes # (1.0-4.8) k/uL BUN (9-20) mg/dL Glucose (74-99) mg/dL POC Glucose (mg/dL) 112 H 136 H (75-99) mg/dL Assessment and Plan Assessment: Gastroenteritis, with jejunal enteritis versus ileus spleenomegaly, chronic Diabetes mellitus Hypertension Chronic back pain Splenomegaly Osteoarthritis Sleep apnea on CPAP Plan: this is a pleasant 64 years old male who presents with signs symptoms of enteritis/ileus. Continue with symptomatic treatment. Continue with IV fluids. Continue with diet. Patient might benefit from a hematological evaluation which can be done as an outpatient for his splenomegaly, patient was instructed with the same and he states he will call and make appointment Labs and medication were reviewed.. Continue same treatment. Continue with symptomatic treatment. Resume home medication. Monitor lytes and vitals. DVT and GI prophylaxis. Further recommendations of the clinical course of the patient DVT prophylaxis: Subcutaneous heparin GI Prophylaxis: Protonix Thank you for consulting us.
--- NOTE | 2019-09-30 15:10 | P.PN ---
Subjective Progress Note Date: 09/30/19 CHIEF COMPLAINT: Epigastric abdominal pain HISTORY OF PRESENT ILLNESS: The patient is a 64-year-old who reports epigastric including bilateral upper abdominal pain. He had upper GI today. He is sd ating liquids. He reports no smoking improvement. Pain from yesterday. Abdominal pain still present. ROS: No fevers or chills. No new chest pain. No blood in stools. PHYSICAL EXAM: VITAL SIGNS: Reviewed CONSTITUTIONAL: Well developed and in no acute distress. EYES: Conjuctivae without sclera icterus. Extraocular movements grossly intact. HEAD, EARS, NOSE, THROAT: Moist buccal mucosa. Head is atraumatic, normocephalic. Hears conversational speech. NECK: Supple. RESPIRATORY: Non-labored respirations and equal bilateral excursions. CARDIOVASCULAR: Palpable 2+ radial pulses. ABDOMEN: Soft. No peritonitis. Tender epigastrium, mild. Protuberant MUSCULOSKELETAL: No gross deformity of the lower extremities noted. No clubbing. No cyanosis. SKIN: Good skin turgor. Well perfused. NEUROLOGIC: Cranial nerves I through XII grossly intact. No focal or lateralizing signs. PSYCH: Alert and oriented to person, place and time. Appropriate affect CLINICAL LABS: WBC 4400 REPORT: Upper GI report demonstrates questionable features of Crohn's disease versus amyloidosis of the small bowel. ASSESSMENT: 1. Epigastric pain 2. History of adjustable gastric band 3. Morbid obesity 4. Abnormal upper GI for Crohn's disease versus amyloidosis PLAN: 1. With new diagnosis potential Crohn's, referral to automotive collision repair instructor was described. 2. He still reports persistent abdominal pain and will continue with hospitalization with consultation to GI for Crohn's versus amyloidosis . Objective - Vital Signs Vital signs: Vital Signs Temp 97.8 F 09/30/19 09:12 Pulse 56 L 09/30/19 09:12 Resp 16 09/30/19 09:12 BP 127/76 09/30/19 09:12 Pulse Ox 97 09/30/19 09:12 Intake & Output 09/29/19 09/30/19 09/30/19 18:59 06:59 18:59 Intake Total 600 1000 Balance 600 1000 Intake: IV 1000 Sodium Chloride 0.9% 1, 1000 000 ml @ 50 mls/hr IV . Q20H [facility] Rx#:[id number] Intake, IV Titration 600 Amount Sodium Chloride 0.9% 1, 600 000 ml @ 50 mls/hr IV . Q20H [facility] Rx#:[id number] Other: # Voids 2 - Labs CBC & Chem 7: 09/30/19 06:06 09/30/19 06:06 Labs: Abnormal Lab Results - Last 24 Hours (Table) 09/29/19 09/30/19 09/30/19 Range/Units 20:14 06:06 06:06 Plt Count 105 L (150-450) k/uL Lymphocytes # 0.8 L (1.0-4.8) k/uL BUN 8 L (9-20) mg/dL Glucose 110 H (74-99) mg/dL POC Glucose (mg/dL) 135 H (75-99) mg/dL 09/30/19 09/30/19 Range/Units 08:50 11:40 Plt Count (150-450) k/uL Lymphocytes # (1.0-4.8) k/uL BUN (9-20) mg/dL Glucose (74-99) mg/dL POC Glucose (mg/dL) 112 H 136 H (75-99) mg/dL Assessment and Plan (1) History of adjustable gastric banding Current Visit: Yes Status: Acute Code(s): Z98.84 - BARIATRIC SURGERY STATUS SNOMED Code(s): 638891603 (2) Ileus Current Visit: Yes Status: Acute Code(s): K56.7 - ILEUS, UNSPECIFIED SNOMED Code(s): 301829751 (3) Morbid obesity due to excess calories Current Visit: Yes Status: Acute Code(s): E66.01 - MORBID (SEVERE) OBESITY DUE TO EXCESS CALORIES SNOMED Code(s): 419727179 (4) BMI 50.0-59.9, adult Current Visit: Yes Status: Acute Code(s): Z68.43 - BODY MASS INDEX (BMI) 50.0-59.9, ADULT SNOMED Code(s): 956591235 (5) Abdominal pain Current Visit: Yes Status: Acute Code(s): R10.9 - UNSPECIFIED ABDOMINAL PAIN SNOMED Code(s): 40077508 (6) Enteritis Current Visit: No Status: Acute Code(s): K52.9 - NONINFECTIVE GASTROENTERITIS AND COLITIS, UNSPECIFIED SNOMED Code(s): 66702813 (7) Abnormal upper gastrointestinal barium series Current Visit: Yes Status: Acute Code(s): R93.3 - ABNORMAL FINDINGS ON DX IMAGING OF PRT DIGESTIVE TRACT SNOMED Code(s): 005103430
[2019-09-30 17:02] LABS: Glucose,Whole Blood 91 mg/dL (75-99)
[2019-09-30] MEDS: SODIUM CHLORIDE 0.9% 1,000 ML IV SCH (17:02)
[2019-09-30 20:31] LABS: Glucose,Whole Blood 108 mg/dL (75-99)
[2019-09-30] MEDS: CHOLESTYRAMINE (WITH SUGAR) 4 GM PACKET PO SCH (21:49)
[2019-09-30] MEDS: VALSARTAN 80 MG TAB PO SCH (21:49)
[2019-09-30] MEDS: ASPIRIN 81 MG PO SCH (21:51)
[2019-10-01 06:55] LABS: Glucose,Whole Blood 110 mg/dL (75-99)
[2019-10-01] MEDS: INSULIN ASPART (NovoLOG) 100 UNIT/ML VIAL SQ SCH ×4 (09:19→21:07)
[2019-10-01] MEDS: SODIUM CHLORIDE 0.9% 1,000 ML IV SCH (10:03)
[2019-10-01] MEDS: PANTOPRAZOLE 40 MG TABLET PO SCH (10:04)
[2019-10-01] MEDS: HEPARIN SODIUM,PORCINE 5,000 UNIT/ML 1 ML VIAL SQ SCH ×2 (10:04→19:40)
[2019-10-01] MEDS: CHOLESTYRAMINE (WITH SUGAR) 4 GM PACKET PO SCH ×2 (10:04→17:19)
[2019-10-01] MEDS: GABAPENTIN 400 MG CAP PO SCH ×4 (10:04→19:44)
--- NOTE | 2019-10-01 10:31 | P.PN ---
Subjective This is a pleasant 64 years old male with past medical history of diabetes mellitus, hypertension, chronic back pain, osteoarthritis, sleep apnea on CPAP Patient presents with abdominal pain, his pain is in the upper abd close to umbilicus, for more than 7 days, about 8/10 on presentation currently 4/10, no associated nausea or vomiting , no chest pain or dyspnea Hemodynamically stable. including CBC, BMP, liver enzymes are unremarkable. Urine analysis is slightly abnormal. Sugar controlled. CT of the abdomen and pelvis showing mesenteric fat stranding with minimal ascites with mild jejunal wall thickening, and dilatation in the left upper quadrant and change, suspicious for enteritis of localized ileus, splenomegaly Surgical team plan no surgical intervention and keep monitoring 09/28/2019 Patient feels better, hysterectomy liquid diets and is willing to advanced with regular diet. He had 2 bowel movement this morning and they were soft but improved from 20 bowel movements 2 days ago. No nausea vomiting. His abdominal pain is about 3/10 which is improved compared to yesterday. His walking in the room and had the shower. No chest pain or dyspnea. Computed tomography scan also shows splenomegaly, also seen in CAT scan in 2017. Patient was instructed to follow up with hematology as an outpatient and he agrees Vital signs stable. Labs unremarkable. 09/29/2019 Patient recommended to have upper GI series however he ate his breakfast this morning so that this was postponed till tomorrow morning. Patient generally feels his abdominal pain is less, he has semisolid bowel movement 1, no nausea vomiting and he tolerated diet well. No other new complaints . Labs are stable . Patient is aware about his enlarged. And he is to follow up as an outpatient 09/30/2019 Patient basically has been the same for the last 2 days with mild symptoms of upper abdominal discomfort/pain and 1-2 kind of loose bowel movement but not like when he came in. He is tolerating that well with no nausea vomiting. Hemodynamically stable. He had upper GI small series showing abnormal terminal ileum suggestive of Crohn's disease versus others, see the full report by radiologist 10/01/2019 Patient still having some abdominal discomfort although mild, still have loose bowel movement coming little by little more formed. I discussed the case with GI team for possible amyloidosis versus Crohn's disease, and review of patient enlarged spleen which was present since 2017 at least. Objective - Vital Signs Vital signs: Vital Signs Temp 97.9 F 10/01/19 07:00 Pulse 57 L 10/01/19 00:38 Resp 18 10/01/19 08:00 BP 129/79 10/01/19 07:00 Pulse Ox 93 L 10/01/19 07:00 Intake & Output 09/30/19 10/01/19 10/01/19 18:59 06:59 18:59 Intake Total 450 Balance 450 Intake: Oral 450 Other: Voiding Method Toilet Toilet # Voids 2 1 - Exam GENERAL: The patient is alert and oriented x3, not in any acute distress. Well developed, well nourished. HEENT: Pupils are round and equally reacting to light. EOMI. No scleral icterus. No conjunctival pallor. Normocephalic, atraumatic. No pharyngeal erythema. No thyromegaly. CARDIOVASCULAR: S1 and S2 present. No murmurs, rubs, or gallops. PULMONARY: Chest is clear to auscultation, no wheezing or crackles. -ABDOMEN: Soft, mild upper abdominal tenderness, better than yesterday, nondistended, normoactive bowel sounds. No palpable organomegaly. MUSCULOSKELETAL: No joint swelling or deformity. EXTREMITIES: No cyanosis, clubbing, or pedal edema. NEUROLOGICAL: Gross neurological examination did not reveal any focal deficits. SKIN: No rashes. No petechiae - Labs CBC & Chem 7: 09/30/19 06:06 09/30/19 06:06 Labs: Abnormal Lab Results - Last 24 Hours (Table) 09/30/19 09/30/19 10/01/19 Range/Units 11:40 20:20 06:27 POC Glucose (mg/dL) 136 H 108 H (75-99) mg/dL C-Reactive Protein 19.4 H (<10.0) mg/L 10/01/19 Range/Units 06:44 POC Glucose (mg/dL) 110 H (75-99) mg/dL C-Reactive Protein (<10.0) mg/L Assessment and Plan Assessment: Gastroenteritis, with jejunal enteritis versus ileus spleenomegaly, chronic Diabetes mellitus Hypertension Chronic back pain Splenomegaly Osteoarthritis Sleep apnea on CPAP Plan: this is a pleasant 64 years old male who presents with signs symptoms of enteritis/ileus. Continue with symptomatic treatment. Discontinue IV fluid upon patient request . Continue with diet. Patient might benefit from a hematological evaluation which can be done as an outpatient for his splenomegaly, patient was instructed with the same and he states he will call and make appointment Labs and medication were reviewed.. Continue same treatment. Continue with symptomatic treatment. Resume home medication. Monitor lytes and vitals. DVT and GI prophylaxis. Further recommendations of the clinical course of the patient DVT prophylaxis: Subcutaneous heparin GI Prophylaxis: Protonix Thank you for consulting us.
[2019-10-01 11:55] LABS: Glucose,Whole Blood 91 mg/dL (75-99)
--- NOTE | 2019-10-01 13:16 | P.PN ---
Subjective Progress Note Date: 10/01/19 CHIEF COMPLAINT: Epigastric abdominal pain HISTORY OF PRESENT ILLNESS: The patient is a 64-year-old who reports epigastric including bilateral upper abdominal pain. He reports worsening abdominal pain despite being on liquid diet. Upper GI yesterday now raise new concerns for Crohn's disease in his differential diagnosis. No nausea. ROS: No fevers or chills. No new chest pain. No blood in stools. PHYSICAL EXAM: VITAL SIGNS: Reviewed CONSTITUTIONAL: Well developed and in no acute distress. EYES: Conjuctivae without sclera icterus. Extraocular movements grossly intact. HEAD, EARS, NOSE, THROAT: Moist buccal mucosa. Head is atraumatic, normocephalic. Hears conversational speech. NECK: Supple. RESPIRATORY: Non-labored respirations and equal bilateral excursions. CARDIOVASCULAR: Palpable 2+ radial pulses. ABDOMEN: Soft. No peritonitis. Tender epigastrium, increased from yesterday. Protuberant MUSCULOSKELETAL: No gross deformity of the lower extremities noted. No clubb ing. No cyanosis. SKIN: Good skin turgor. Well perfused. NEUROLOGIC: Cranial nerves I through XII grossly intact. No focal or lateralizing signs. PSYCH: Alert and oriented to person, place and time. Appropriate affect CLINICAL LABS: CRP 14.4 ASSESSMENT: 1. Epigastric pain 2. History of adjustable gastric band 3. Morbid obesity 4. Abnormal upper GI for Crohn's disease versus amyloidosis PLAN: 1. He has been seen by GI for evaluation for Crohn's disease. 2. Recommend for upper and lower scopes for evaluation for Crohn's 3. With his increased abdominal pain, continue hospitalization Objective - Vital Signs Vital signs: Vital Signs Temp 97.9 F 10/01/19 07:00 Pulse 57 L 10/01/19 00:38 Resp 18 10/01/19 08:00 BP 129/79 10/01/19 07:00 Pulse Ox 93 L 10/01/19 07:00 Intake & Output 09/30/19 10/01/19 10/01/19 18:59 06:59 18:59 Intake Total 450 Balance 450 Intake: Oral 450 Other: Voiding Method Toilet Toilet # Voids 2 1 - Labs CBC & Chem 7: 09/30/19 06:06 09/30/19 06:06 Labs: Abnormal Lab Results - Last 24 Hours (Table) 09/30/19 10/01/19 10/01/19 Range/Units 20:20 06:27 06:44 POC Glucose (mg/dL) 108 H 110 H (75-99) mg/dL C-Reactive Protein 19.4 H (<10.0) mg/L Assessment and Plan (1) History of adjustable gastric banding Current Visit: Yes Status: Acute Code(s): Z98.84 - BARIATRIC SURGERY STATUS SNOMED Code(s): 878449617 (2) Ileus Current Visit: Yes Status: Acute Code(s): K56.7 - ILEUS, UNSPECIFIED SNOMED Code(s): 666123127 (3) Morbid obesity due to excess calories Current Visit: Yes Status: Acute Code(s): E66.01 - MORBID (SEVERE) OBESITY DUE TO EXCESS CALORIES SNOMED Code(s): 447948895 (4) BMI 50.0-59.9, adult Current Visit: Yes Status: Acute Code(s): Z68.43 - BODY MASS INDEX (BMI) 50.0-59.9, ADULT SNOMED Code(s): 827101167 (5) Abdominal pain Current Visit: Yes Status: Acute Code(s): R10.9 - UNSPECIFIED ABDOMINAL PAIN SNOMED Code(s): 03275792 (6) Enteritis Current Visit: No Status: Acute Code(s): K52.9 - NONINFECTIVE GASTROENTERITIS AND COLITIS, UNSPECIFIED SNOMED Code(s): 48171435 (7) Abnormal upper gastrointestinal barium series Current Visit: Yes Status: Acute Code(s): R93.3 - ABNORMAL FINDINGS ON DX IMAGING OF PRT DIGESTIVE TRACT SNOMED Code(s): 113040271
[2019-10-01 16:55] LABS: Glucose,Whole Blood 113 mg/dL (75-99)
--- NOTE | 2019-10-01 18:44 | P.CONS ---
History of Present Illness - Reason for Consult Consult date: 10/01/19 Abnormal imaging, abdominal pain Requesting physician: Hemal E Sheet - Chief Complaint Abdominal pain - History of Present Illness 64-year-old male with a medical history significant for diabetes mellitus, hypertension, chronic back pain, osteoarthritis, RAIZA in prior lap band who presents to the hospital with complaints of abdominal pain. The patient reports 7 days of abdominal pain prior to presentation to the hospital. He reports that the pain was located in the periumbilical region and upper abdomen. He describes the pain as constant, severe and aching. He denied any radiation of the pain. He denied any similar episodes of similar pain in the past. He felt that the pain was made worse with eating. He denies any change in bowel habits. He reports his bowel movements in general are every day normal in color and caliber. No family history of colon cancer or inflammatory bowel disease. No prior colonoscopy. He does report prior EGD prior to his gastric surgery. Computed tomography scan on presentation was suggestive of splenomegaly and possible thickening of the jejunum. Subsequent small bowel follow-through was suggestive of thickening in the terminal ileum. Laboratory evaluation showed a normal ESR with a mildly elevated CRP. She was seen in his room setting bedside reporting that her abdominal pain is still present. Review of Systems REVIEW OF SYSTEMS: CONSTITUTIONAL: Denies any fevers, chills, weight change or fatigue. CARDIOVASCULAR: Denies any chest pain, palpitations high or low blood pressures RESPIRATORY: Denies any shortness of breath, hemoptysis or cough. GENITOURINARY: No dysuria or hematuria. MUSCULOSKELETAL: No weakness reported. SKIN: Denies any new rashes or lesions, jaundice or pallor. PSYCHIATRIC: Denies any depression or anxiety. NEUROLOGY: Denies headache, denies any new focal deficits. EARS/NOSE/THROAT: No recent hearing change, congestion, nasal discharge or sore throat. EYES: No pain in eyes, discharge or change in vision. GASTROINTESTINAL: As per HPI. Past Medical History Past Medical History: Diabetes Mellitus, Hypertension, Osteoarthritis (OA), Sleep Apnea/CPAP/BIPAP Additional Past Medical History / Comment(s): chronic back pain, wound to L foot, cellutitis multiple times in LLE History of Any Multi-Drug Resistant Organisms: None Reported Past Surgical History: Appendectomy, Back Surgery, Cholecystectomy Additional Past Surgical History / Comment(s): finger surgery, carpal tunnel surgery, L KNEE REPLACEMENT 2010, lap band Past Anesthesia/Blood Transfusion Reactions: No Reported Reaction Past Psychological History: No Psychological Hx Reported Smoking Status: Never smoker Past Alcohol Use History: Rare Past Drug Use History: None Reported - Past Family History Mother Family Medical History: Coronary Artery Disease (CAD), Diabetes Mellitus Father Family Medical History: Coronary Artery Disease (CAD) Brother(s) Family Medical History: Coronary Artery Disease (CAD) Additional Family Medical History / Comment(s): PROSTATE CANCER Medications and Allergies Home Medications Medication Instructions Recorded Confirmed Type Aspirin [Adult Low Dose Aspirin EC] 81 mg PO HS 04/19/17 09/27/19 History Gabapentin [Neurontin] 400 mg PO QID 04/19/17 09/27/19 History Atorvastatin [Lipitor] 20 mg PO DAILY 09/14/18 09/27/19 History metFORMIN HCL [metFORMIN HCL ER] 750 mg PO HS 09/14/18 09/27/19 History HYDROcodone/APAP 7.5-325MG [[place] 1 tab PO HS PRN 09/27/19 09/27/19 History 7.5-325] Valsartan 80 mg PO DAILY 09/27/19 09/27/19 History Allergies Allergy/AdvReac Type Severity Reaction Status Date / Time No Known Allergies Allergy Verified 09/27/19 08:13 Physical Exam Vitals: Vital Signs Temp Pulse Resp BP Pulse Ox 10/01/19 07:00 97.9 F 18 129/79 93 L 10/01/19 00:38 97.9 F 57 L 18 122/75 94 L 10/01/19 00:00 18 09/30/19 19:21 98.2 F 63 17 148/79 94 L 09/30/19 15:00 98.6 F 62 18 131/68 98 Intake and Output 09/30/19 10/01/19 10/01/19 22:59 06:59 14:59 Intake Total 450 Balance 450 Intake: Oral 450 Other: Voiding Method Toilet # Voids 1 On physical examination, patient appears comfortable in no apparent distress. HEAD: Normocephalic, atraumatic. EYES: No scleral icterus. No conjunctival injection. MOUTH: No lesions, tongue midline. NECK: Trachea midline, no gross abnormalities. CHEST: Clear to auscultation with no wheezing or rhonchi appreciated. HEART: Regular rate and rhythm. ABDOMEN: Soft, obese with mild tenderness to palpation in the epigastric region of his abdominal. Bowel sounds are positive. No organomegaly. No guarding or rigidity. EXTREMITIES: No pedal edema. SKIN: No rashes, no jaundice. NEUROLOGIC: Alert and oriented x3. No focal deficits. Results CBC & Chem 7: 09/30/19 06:06 09/30/19 06:06 Labs: Abnormal Lab Results - Last 24 Hours (Table) 09/30/19 09/30/19 10/01/19 Range/Units 11:40 20:20 06:27 POC Glucose (mg/dL) 136 H 108 H (75-99) mg/dL C-Reactive Protein 19.4 H (<10.0) mg/L 10/01/19 Range/Units 06:44 POC Glucose (mg/dL) 110 H (75-99) mg/dL C-Reactive Protein (<10.0) mg/L CT scan - abdomen: report reviewed (Computed tomography scan of the abdomen with findings of mild thickening of the jejunum.) Assessment and Plan (1) Abdominal pain Narrative/Plan: 64-year-old male with multiple medical comorbidities who presents to the hospital with reports of abdominal pain presents for over one week in duration described as constant in the epigastric and periumbilical region of his abdomen with associated nausea but no vomiting. No radiation of the pain. Patient previously underwent lap band for morbid obesity. Denies any similar episodes of pain in the past. Patient had a CT imaging suggestive of possible jejunal thickening and subsequent small bowel follow-through with suggestion of possible terminal ileal inflammation. Unclear etiology of symptoms and CT findings may be related to gastroenteritis, functional bowel disorder, inflammatory process also in differential. Current Visit: Yes Status: Acute Code(s): R10.9 - UNSPECIFIED ABDOMINAL PAIN SNOMED Code(s): 55623781 (2) History of adjustable gastric banding Current Visit: Yes Status: Acute Code(s): Z98.84 - BARIATRIC SURGERY STATUS SNOMED Code(s): 006529944 Plan: Supportive care Continue full liquid diet ESR and CRP ordered with only minimal elevation and CRP Further investigation with EGD and colonoscopy with plan for biopsies of the small bowel on EGD and terminal ileum on colonoscopy with recommendation for small bowel intubation and biopsies Case has been discussed with the surgical service and endoscopy can be performed by their service or with the GI team per their recommendations Thank you for allowing us to participate in the care of the patient we will continue to follow
[2019-10-01] MEDS: ASPIRIN 81 MG PO SCH (19:43)
[2019-10-01] MEDS: VALSARTAN 80 MG TAB PO SCH (19:43)
[2019-10-01 20:25] LABS: Glucose,Whole Blood 115 mg/dL (75-99)
[2019-10-02] MEDS: SODIUM CHLORIDE 0.9% 1,000 ML IV SCH ×2 (03:41→22:28)
[2019-10-02 06:56] LABS: Glucose,Whole Blood 103 mg/dL (75-99)
[2019-10-02] MEDS: INSULIN ASPART (NovoLOG) 100 UNIT/ML VIAL SQ SCH ×4 (07:17→20:40)
[2019-10-02] MEDS: CHOLESTYRAMINE (WITH SUGAR) 4 GM PACKET PO SCH ×2 (08:22→17:30)
[2019-10-02] MEDS: PANTOPRAZOLE 40 MG TABLET PO SCH (08:22)
[2019-10-02] MEDS: HEPARIN SODIUM,PORCINE 5,000 UNIT/ML 1 ML VIAL SQ SCH ×3 (08:22→20:52)
[2019-10-02] MEDS: GABAPENTIN 400 MG CAP PO SCH ×4 (08:22→20:50)
--- NOTE | 2019-10-02 09:31 | P.PN ---
Subjective This is a pleasant 64 years old male with past medical history of diabetes mellitus, hypertension, chronic back pain, osteoarthritis, sleep apnea on CPAP Patient presents with abdominal pain, his pain is in the upper abd close to umbilicus, for more than 7 days, about 8/10 on presentation currently 4/10, no associated nausea or vomiting , no chest pain or dyspnea Hemodynamically stable. including CBC, BMP, liver enzymes are unremarkable. Urine analysis is slightly abnormal. Sugar controlled. CT of the abdomen and pelvis showing mesenteric fat stranding with minimal ascites with mild jejunal wall thickening, and dilatation in the left upper quadrant and change, suspicious for enteritis of localized ileus, splenomegaly Surgical team plan no surgical intervention and keep monitoring 09/28/2019 Patient feels better, hysterectomy liquid diets and is willing to advanced with regular diet. He had 2 bowel movement this morning and they were soft but improved from 20 bowel movements 2 days ago. No nausea vomiting. His abdominal pain is about 3/10 which is improved compared to yesterday. His walking in the room and had the shower. No chest pain or dyspnea. Computed tomography scan also shows splenomegaly, also seen in CAT scan in 2017. Patient was instructed to follow up with hematology as an outpatient and he agrees Vital signs stable. Labs unremarkable. 09/29/2019 Patient recommended to have upper GI series however he ate his breakfast this morning so that this was postponed till tomorrow morning. Patient generally feels his abdominal pain is less, he has semisolid bowel movement 1, no nausea vomiting and he tolerated diet well. No other new complaints . Labs are stable . Patient is aware about his enlarged. And he is to follow up as an outpatient 09/30/2019 Patient basically has been the same for the last 2 days with mild symptoms of upper abdominal discomfort/pain and 1-2 kind of loose bowel movement but not like when he came in. He is tolerating that well with no nausea vomiting. Hemodynamically stable. He had upper GI small series showing abnormal terminal ileum suggestive of Crohn's disease versus others, see the full report by radiologist 10/01/2019 Patient still having some abdominal discomfort although mild, still have loose bowel movement coming little by little more formed. I discussed the case with GI team for possible amyloidosis versus Crohn's disease, and review of patient enlarged spleen which was present since 2017 at least. 10/02/2019 Patient remains clinically the same with mild epigastric abdominal pain and mild loose bowel movement about once or twice per day. The recommendation for him is to get endoscopic evaluation of his gastrointestinal tract, however patient ate today. Vitals stable. We will check labs from today. Objective - Vital Signs Vital signs: Vital Signs Temp 98.6 F 10/02/19 07:00 Pulse 56 L 10/02/19 07:00 Resp 12 10/02/19 07:00 BP 115/68 10/02/19 07:00 Pulse Ox 92 L 10/02/19 07:00 Intake & Output 10/01/19 10/02/19 10/02/19 18:59 06:59 18:59 Intake Total 150 450 Balance 150 450 Intake: Intake, IV Titration 150 Amount Sodium Chloride 0.9% 1, 150 000 ml @ 50 mls/hr IV . Q20H [facility] Rx#:[id number] Oral 450 Other: Voiding Method Toilet Toilet # Voids 2 2 - Exam GENERAL: The patient is alert and oriented x3, not in any acute distress. Well developed, well nourished. HEENT: Pupils are round and equally reacting to light. EOMI. No scleral icterus. No conjunctival pallor. Normocephalic, atraumatic. No pharyngeal erythema. No thyromegaly. CARDIOVASCULAR: S1 and S2 present. No murmurs, rubs, or gallops. PULMONARY: Chest is clear to auscultation, no wheezing or crackles. -ABDOMEN: Soft, mild upper abdominal tenderness, better than yesterday, nondistended, normoactive bowel sounds. No palpable organomegaly. MUSCULOSKELETAL: No joint swelling or deformity. EXTREMITIES: No cyanosis, clubbing, or pedal edema. NEUROLOGICAL: Gross neurological examination did not reveal any focal deficits. SKIN: No rashes. No petechiae - Labs CBC & Chem 7: 09/30/19 06:06 09/30/19 06:06 Labs: Abnormal Lab Results - Last 24 Hours (Table) 10/01/19 10/01/19 10/02/19 Range/Units 16:44 20:13 06:45 POC Glucose (mg/dL) 113 H 115 H 103 H (75-99) mg/dL Assessment and Plan Assessment: Gastroenteritis, with jejunal enteritis versus ileus spleenomegaly, chronic Diabetes mellitus Hypertension Chronic back pain Splenomegaly Osteoarthritis Sleep apnea on CPAP Plan: this is a pleasant 64 years old male who presents with signs symptoms of enteritis/ileus. Continue with symptomatic treatment. Discontinue IV fluid upon patient request . Continue with diet. Patient might benefit from a hematological evaluation which can be done as an outpatient for his splenomegaly, patient was instructed with the same and he states he will call and make appointment. Patient also recommended to have endoscopic evaluation of GI tract, with follow-up with surgery team, patient agrees with that and he was to discuss it with surgery team Labs and medication were reviewed.. Continue same treatment. Continue with symptomatic treatment. Resume home medication. Monitor lytes and vitals. DVT and GI prophylaxis. Further recommendations of the clinical course of the patient DVT prophylaxis: Subcutaneous heparin GI Prophylaxis: Protonix Thank you for consulting us.
[2019-10-02] MEDS ORDERED: PEG 3350-NA SULF,BICARB,CL/KCL 4,000 ML BOTTLE PO ONE (10:14)
[2019-10-02 10:37] LABS: Basophils % (A) 1 %; Eosinophils # (A) 0.2 k/uL (0-0.7); Eosinophils % (A) 4 %; HCT 44.7 % (39.0-53.0); HGB 14.5 gm/dL (13.0-17.5); Lymphocytes # (A) 0.6 k/uL (1.0-4.8); Lymphocytes % (A) 15 %; MCH 29.1 pg (25.0-35.0); MCHC 32.4 g/dL (31.0-37.0); MCV 89.7 fL (80.0-100.0); Mean Platelet Volume 8.5; Monocytes # (A) 0.3 k/uL (0-1.0); Monocytes % (A) 8 %; Neutrophils # (A) 2.8 k/uL (1.3-7.7); Neutrophils % (A) 72 %; RBC 4.98 m/uL (4.30-5.90); WBC 3.9 k/uL (3.8-10.6)
[2019-10-02 10:49] LABS: Platelet Count 99 k/uL (150-450)
[2019-10-02 10:54] LABS: African American GFR (CKD) >90 (>60 ml/min/1.73 sqM); Anion Gap 8 mmol/L; Blood Urea Nitrogen 9 mg/dL (9-20); Calcium 9.1 mg/dL (8.4-10.2); Carbon Dioxide 29 mmol/L (22-30); Chloride 103 mmol/L (98-107); Glucose 129 mg/dL (74-99); Non-African American GFR(CKD) >90 (>60 ml/min/1.73 sqM); Potassium 4.4 mmol/L (3.5-5.1); Sodium 140 mmol/L (137-145)
--- NOTE | 2019-10-02 11:54 | P.PN ---
Subjective Progress Note Date: 10/02/19 CHIEF COMPLAINT: abdominal pain HISTORY OF PRESENT ILLNESS: Patient examined this morning at the bedside. Reports abdominal pain is tolerable at this time. Currently rating 2/10. Tolerating diet without nausea or vomiting. Reports having a bowel movement. Vital signs are stable. He is afebrile. PHYSICAL EXAM: VITAL SIGNS: Reviewed. GENERAL: Well-developed in no acute distress. HEENT: No sclera icterus. Extraocular movements grossly intact. Moist buccal mucosa. Head is atraumatic, normocephalic. ABDOMEN: Obese. Soft. Nondistended. Nontender. NEUROLOGIC: Alert and oriented. Cranial nerves II through XII grossly intact. ASSESSMENT: 1. Abdominal pain 2. Enteritis, possible Crohns 3. History of lap band PLAN: Clear liquid diet. NPO at midnight [facility] bowel prep EGD and colonoscopy tomorrow with Dr. Price Nurse practitioner note has been reviewed by physician. Signing provider agrees with the documented findings, assessment, and plan of care. Objective - Vital Signs Vital signs: Vital Signs Temp 98.6 F 10/02/19 07:00 Pulse 56 L 10/02/19 07:00 Resp 12 10/02/19 07:00 BP 115/68 10/02/19 07:00 Pulse Ox 92 L 10/02/19 07:00 Intake & Output 10/01/19 10/02/19 10/02/19 18:59 06:59 18:59 Intake Total 150 450 Balance 150 450 Intake: Intake, IV Titration 150 Amount Sodium Chloride 0.9% 1, 150 000 ml @ 50 mls/hr IV . Q20H [facility] Rx#:[id number] Oral 450 Other: Voiding Method Toilet Toilet # Voids 2 2 - Labs CBC & Chem 7: 10/02/19 10:08 10/02/19 10:08 Labs: Abnormal Lab Results - Last 24 Hours (Table) 10/01/19 10/01/19 10/02/19 Range/Units 16:44 20:13 06:45 Plt Count (150-450) k/uL Lymphocytes # (1.0-4.8) k/uL Glucose (74-99) mg/dL POC Glucose (mg/dL) 113 H 115 H 103 H (75-99) mg/dL 01/27/20 01/27/20 Range/Units 10:08 10:08 Plt Count 99 L (150-450) k/uL Lymphocytes # 0.6 L (1.0-4.8) k/uL Glucose 129 H (74-99) mg/dL POC Glucose (mg/dL) (75-99) mg/dL
[2019-10-02 12:14] LABS: Glucose,Whole Blood 92 mg/dL (75-99)
[2019-10-02 17:14] LABS: Glucose,Whole Blood 80 mg/dL (75-99)
[2019-10-02 20:38] LABS: Glucose,Whole Blood 100 mg/dL (75-99)
[2019-10-02] MEDS: ASPIRIN 81 MG PO SCH (20:50)
[2019-10-02] MEDS: VALSARTAN 80 MG TAB PO SCH (20:50)
--- NOTE | 2019-10-02 22:08 | P.PN ---
Subjective Progress Note Date: 10/02/19 Principal diagnosis: Abdominal pain, small bowel wall thickening on imaging Patient is seen sitting bedside. Abdominal pain improved, currently reporting a 2/10 pain. No nausea or vomiting. Objective - Vital Signs Vital signs: Vital Signs Temp 98.6 F 10/02/19 07:00 Pulse 56 L 10/02/19 07:00 Resp 12 10/02/19 07:00 BP 115/68 10/02/19 07:00 Pulse Ox 92 L 10/02/19 07:00 Intake & Output 10/01/19 10/02/19 10/02/19 18:59 06:59 18:59 Intake Total 150 450 Balance 150 450 Intake: Intake, IV Titration 150 Amount Sodium Chloride 0.9% 1, 150 000 ml @ 50 mls/hr IV . Q20H [facility] Rx#:[id number] Oral 450 Other: Voiding Method Toilet Toilet # Voids 2 2 - Exam On physical examination, patient appears comfortable in no apparent distress. HEAD: Normocephalic, atraumatic. EYES: No scleral icterus. No conjunctival injection. MOUTH: No lesions, tongue midline. NECK: Trachea midline, no gross abnormalities. ABDOMEN: Soft, obese. Bowel sounds are positive. No organomegaly. No guarding or rigidity. EXTREMITIES: No pedal edema. SKIN: No rashes, no jaundice. NEUROLOGIC: Alert and oriented x3. No focal deficits. - Labs CBC & Chem 7: 10/02/19 10:08 10/02/19 10:08 Labs: Abnormal Lab Results - Last 24 Hours (Table) 10/01/19 10/01/19 10/02/19 Range/Units 16:44 20:13 06:45 Plt Count (150-450) k/uL Lymphocytes # (1.0-4.8) k/uL Glucose (74-99) mg/dL POC Glucose (mg/dL) 113 H 115 H 103 H (75-99) mg/dL 10/02/19 10/02/19 Range/Units 10:08 10:08 Plt Count 99 L (150-450) k/uL Lymphocytes # 0.6 L (1.0-4.8) k/uL Glucose 129 H (74-99) mg/dL POC Glucose (mg/dL) (75-99) mg/dL Assessment and Plan (1) Abdominal pain Narrative/Plan: 64-year-old male with multiple medical comorbidities who presents to the hospital with reports of abdominal pain presents for over one week in duration described as constant in the epigastric and periumbilical region of his abdomen with associated nausea but no vomiting. No radiation of the pain. Patient previously underwent lap band for morbid obesity. Denies any similar episodes of pain in the past. Patient had a CT imaging suggestive of possible jejunal thickening and subsequent small bowel follow-through with suggestion of possible terminal ileal inflammation. Unclear etiology of symptoms and CT findings may be related to gastroenteritis, functional bowel disorder, inflammatory process also in differential. Current Visit: Yes Status: Acute Code(s): R10.9 - UNSPECIFIED ABDOMINAL PAIN SNOMED Code(s): 48010795 (2) History of adjustable gastric banding Current Visit: Yes Status: Acute Code(s): Z98.84 - BARIATRIC SURGERY STATUS SNOMED Code(s): 199094336 Plan: Supportive care Clear liquid diet ESR and CRP ordered with only minimal elevation and CRP Further investigation with EGD and colonoscopy with plan for biopsies of the small bowel on EGD and terminal ileum on colonoscopy with recommendation for small bowel intubation and biopsies, with plan for endoscopy with the surgical s shannon tomorrow Thank you for allowing us to participate in the care of the patient
[2019-10-03 06:44] LABS: Glucose,Whole Blood 104 mg/dL (75-99)
[2019-10-03] MEDS: INSULIN ASPART (NovoLOG) 100 UNIT/ML VIAL SQ SCH ×3 (06:51→12:13)
[2019-10-03] MEDS: CHOLESTYRAMINE (WITH SUGAR) 4 GM PACKET PO SCH ×2 (08:57→10:50)
[2019-10-03] MEDS: PANTOPRAZOLE 40 MG TABLET PO SCH ×2 (08:57→10:50)
[2019-10-03] MEDS: GABAPENTIN 400 MG CAP PO SCH ×3 (08:57→13:58)
[2019-10-03] MEDS: HEPARIN SODIUM,PORCINE 5,000 UNIT/ML 1 ML VIAL SQ SCH ×2 (08:57→10:50)
[2019-10-03] MEDS ORDERED: LIDOCAINE 1% INJ 10MG/ML (20 ML MDV) ONE (09:32)
[2019-10-03] MEDS ORDERED: fentaNYL (PF) 50 MCG/ML 2 ML AMP ONE (09:32)
[2019-10-03] MEDS ORDERED: MIDAZOLAM 2 MG/2 ML VIAL ONE (09:32)
[2019-10-03] MEDS ORDERED: PROPOFOL 10 MG/ML 20 ML VIAL IV ONE (09:32)
--- NOTE | 2019-10-03 10:12 | P.OP ---
Date of Procedure: 10/03/19 Preoperative Diagnosis: Enteritis Postoperative Diagnosis: Left colon polyp Right colon polyp Cecal inflammation biopsy pending Antral gastritis Procedure(s) Performed: EGD Colonoscopy Anesthesia: MAC Surgeon: Efren Price Pathology: other (Left colon polyp, right colon polyp, cecal biopsy, antrum) Condition: stable Disposition: PACU Description of Procedure: The patient's placed on the endoscopy table lateral position. He received IV sedation. The gastroscope placed oropharynx passed in the esophagus into the stomach. Scope was then placed through the pylorus. The first and second portion of the duodenum appeared normal. Scope was then brought back the antrum and this appeared mildly inflamed. A biopsies was performed. The scope was unretroflexed and remainder of the stomach appeared normal. The GE junction was at 47 is. Patient had a previously placed LAP-BAND device this appeared to be without evidence of inflammation or erosion. This was just below the GE junction. The distal esophagus appeared normal. The proximal esophagus appeared normal. Scope withdrawn for patient. Next digital rectal exam is performed. This was normal. There is no evidence of any abnormalities. The prostate was symmetric without nodules. The possible colonoscope was then placed patient anus and passed entire colon. In the cecum appeared to be some mild mucosal inflammation. This was biopsied with cold forcep. Scope was then brought back and in the distal cecum there was a small polyp seen this removed with snare. The remainder the ascending colon, transverse colon, normal. In the descending colon there was a polyp seen this removed with snare. The remainder of the descending colon and sigmoid and rectum appeared normal. Scope was withdrawn for patient.
[2019-10-03 10:27] VITALS: RESP 12; TEMP 98
[2019-10-03 12:05] LABS: Glucose,Whole Blood 94 mg/dL (75-99)
--- NOTE | 2019-10-03 13:20 | P.PN ---
Subjective Progress Note Date: 10/03/19 Principal diagnosis: This is a pleasant 64 years old male with past medical history of diabetes mellitus, hypertension, chronic back pain, osteoarthritis, sleep apnea on CPAP Patient presents with abdominal pain, his pain is in the upper abd close to umbilicus, for more than 7 days, about 8/10 on presentation currently 4/10, no associated nausea or vomiting , no chest pain or dyspnea Hemodynamically stable. including CBC, BMP, liver enzymes are unremarkable. Urine analysis is slightly abnormal. Sugar controlled. CT of the abdomen and pelvis showing mesenteric fat stranding with minimal ascites with mild jejunal wall thickening, and dilatation in the left upper quadrant and change, suspicious for enteritis of localized ileus, splenomegaly Surgical team plan no surgical intervention and keep monitoring 09/28/2019 Patient feels better, hysterectomy liquid diets and is willing to advanced with regular diet. He had 2 bowel movement this morning and they were soft but improved from 20 bowel movements 2 days ago. No nausea vomiting. His abdominal pain is about 3/10 which is improved compared to yesterday. His walking in the room and had the shower. No chest pain or dyspnea. Computed tomography scan also shows splenomegaly, also seen in CAT scan in 2017. Patient was instructed to follow up with hematology as an outpatient and he agrees Vital signs stable. Labs unremarkable. 09/29/2019 Patient recommended to have upper GI series however he ate his breakfast this morning so that this was postponed till tomorrow morning. Patient generally feels his abdominal pain is less, he has semisolid bowel movement 1, no nausea vomiting and he tolerated diet well. No other new complaints . Labs are stable . Patient is aware about his enlarged. And he is to follow up as an outpatient 09/30/2019 Patient basically has been the same for the last 2 days with mild symptoms of upper abdominal discomfort/pain and 1-2 kind of loose bowel movement but not li ke when he came in. He is tolerating that well with no nausea vomiting. Hemodynamically stable. He had upper GI small series showing abnormal terminal ileum suggestive of Crohn's disease versus others, see the full report by radiologist 10/01/2019 Patient still having some abdominal discomfort although mild, still have loose bowel movement coming little by little more formed. I discussed the case with GI team for possible amyloidosis versus Crohn's disease, and review of patient enlarged spleen which was present since 2017 at least. 10/02/2019 Patient remains clinically the same with mild epigastric abdominal pain and mild loose bowel movement about once or twice per day. The recommendation for him is to get endoscopic evaluation of his gastrointestinal tract, however patient ate today. Vitals stable. We will check labs from today. 10/03/2019 Patient is sitting up in the chair and states that he feels much better today. Patient underwent an EGD and colonoscopy today with Dr. Price which showed antral gastritis along with some colon polyps that were biopsied. Patient is tolerating diet and is hoping to be discharged today. Currently patient denies any chest pain, shortness of breath, or palpitations. Patient is afebrile. Patient denies any nausea or vomiting and is tolerating diet. Patient states that he is passing gas but has not had a bowel movement as he just recently completed a bowel prep yesterday. Objective - Vital Signs Vital signs: Vital Signs Temp 98 F 10/03/19 10:26 Pulse 63 10/03/19 10:26 Resp 12 10/03/19 10:26 BP 112/65 10/03/19 10:26 Pulse Ox 95 10/03/19 10:26 Intake & Output 10/02/19 10/03/19 10/03/19 18:59 06:59 18:59 Intake Total 1500 200 Balance 1500 200 Intake: Oral 1500 200 Other: Voiding Method Toilet Toilet # Voids 5 1 - Exam GENERAL: The patient is alert and oriented x3, not in any acute distress. Well developed, well nourished. HEENT: Pupils are round and equally reacting to light. EOMI. No scleral icterus. No conjunctival pallor. Normocephalic, atraumatic. No pharyngeal erythema. No thyromegaly. CARDIOVASCULAR: S1 and S2 present. No murmurs, rubs, or gallops. PULMONARY: Chest is clear to auscultation, no wheezing or crackles. -ABDOMEN: Soft, mild upper abdominal tenderness, better than yesterday, non- distended, normoactive bowel sounds. No palpable organomegaly. MUSCULOSKELETAL: No joint swelling or deformity. EXTREMITIES: No cyanosis, clubbing, or pedal edema. NEUROLOGICAL: Gross neurological examination did not reveal any focal deficits. SKIN: No rashes. No petechiae - Labs CBC & Chem 7: 10/02/19 10:08 10/02/19 10:08 Labs: Abnormal Lab Results - Last 24 Hours (Table) 10/02/19 10/03/19 Range/Units 20:37 06:42 POC Glucose (mg/dL) 100 H 104 H (75-99) mg/dL Assessment and Plan Assessment: Gastroenteritis, with jejunal enteritis versus ileus splenomegaly, chronic Diabetes mellitus Hypertension Chronic back pain Splenomegaly Osteoarthritis Sleep apnea on CPAP DVT prophylaxis: Subcutaneous heparin GI Prophylaxis: Protonix Plan: Patient underwent EGD and colonoscopy today with Dr. Price showing antral gastritis with a few colon polyps that were biopsied. Patient tolerating diet and up walking the room with no difficulties. Patient is awaiting for discharge today. Patient will follow-up with his primary care provider Dr. Maxwell along with surgery in the outpatient setting. Patient states that he has a follow-up appointment this Wednesday. Will continue to follow along closely. Further recommendations to follow. Home medications resumed. Anticipate discharge today. Thank you for consulting us.
--- NOTE | 2019-10-03 13:32 | P.DS ---
Providers Date of admission: 09/29/19 08:32 Expected date of discharge: 10/03/19 Attending physician: Efren Price Consults: 09/27/19 10:56 Consult Physician Routine Consulting Provider: Nikki Fuentes Consult Reason/Comments: medical management Do you want consulting provider notified?: Yes 09/30/19 18:39 Consult Physician Routine Consulting Provider: Jay Levy Consult Reason/Comments: chrons vs amyloidosis on abd upper GI series Do you want consulting provider notified?: Yes Primary care physician: [facility] Course: 64 year old male who presented to the ER with a chief complaint of abdominal pain. CT abdomen and pelvis: Mesenteric fat stranding and minimal ascites fluid had significantly different than last exam. Mild jejunal wall thickening and dilation the left upper quadrant contained. This could relate to a localized ileus or enteritis. No free air. Splenomegaly unchanged. Patient was started on clear liquid diet. Patient underwent upper GI revealing possible Crohns disease. GI was consulted and evaluated patient. Patient also underwent EGD and colonoscopy revealing left and right colon polyp, cecal inflammation, and antrum gastritis. Biopsies were taken. The patient's diet was advanced after his scopes and he is tolerating it well. He is stable for discharge home today per Dr. Price. He is to follow up outpatient. Please see EMR for further hospital course details. ASSESSMENT: 1. Abdominal pain 2. Enteritis, possible Crohns 3. History of lap band Nurse practitioner note has been reviewed by physician. Signing provider agrees with the documented findings, assessment, and plan of care. Patient Condition at Discharge: Stable Plan - Discharge Summary Discharge Rx Participant: No New Discharge Prescriptions: No Action Aspirin [Adult Low Dose Aspirin EC] 81 mg PO HS Gabapentin [Neurontin] 400 mg PO QID Atorvastatin [Lipitor] 20 mg PO DAILY metFORMIN HCL [metFORMIN HCL ER] 750 mg PO HS Valsartan 80 mg PO DAILY HYDROcodone/APAP 7.5-325MG [[place] 7.5-325] 1 tab PO HS PRN PRN Reason: Pain Discharge Medication List Aspirin [Adult Low Dose Aspirin EC] 81 mg PO HS 04/19/17 [History] Gabapentin [Neurontin] 400 mg PO QID 04/19/17 [History] Atorvastatin [Lipitor] 20 mg PO DAILY 09/14/18 [History] metFORMIN HCL [metFORMIN HCL ER] 750 mg PO HS 09/14/18 [History] HYDROcodone/APAP 7.5-325MG [[place] 7.5-325] 1 tab PO HS PRN 09/27/19 [History] Valsartan 80 mg PO DAILY 09/27/19 [History] Follow up Appointment(s)/Referral(s): Low Andres MD [STAFF PHYSICIAN] - 1 Week (Office will call you at home with your follow-up date and time. For enlarged spleen) Roseanne Maxwell MD [Primary Care Provider] - 10/03/19 11:00 am Efren Price MD [STAFF PHYSICIAN] - 10/05/19 3:30 pm
[2019-10-03 15:43] VITALS: BP 138/76; PULSE 57
== END 2019-10-03 16:03 | disposition home or self-care (01) | DRG 386 ==
LOC: EC 22:36 → 4SSUR 09-27 01:50 → OBSVTOIN 09-29 08:32
PROVIDERS: ADMIT Surgery; ATTEND Surgery
PROC: 0DBM8ZZ Excision of Descending Colon, Via Natural or Artificial Opening Endoscopic (ICD-10-PCS; principal; 2019-10-03 12:20)
PROC: 0DD78ZX Extraction of Stomach, Pylorus, Via Natural or Artificial Opening Endoscopic, Diagnostic (ICD-10-PCS; principal; 2019-10-03 12:20)
PROC: 0DBH8ZZ Excision of Cecum, Via Natural or Artificial Opening Endoscopic (ICD-10-PCS; principal; 2019-10-03 12:20)
PROC: 0DBH8ZX Excision of Cecum, Via Natural or Artificial Opening Endoscopic, Diagnostic (ICD-10-PCS; principal; 2019-10-03 12:20)
DX: K50.90 Crohn's disease, unspecified, without complications (principal); K56.7 Ileus, unspecified; Z68.43 Body mass index [BMI] 50.0-59.9, adult; E11.9 Type 2 diabetes mellitus without complications; E66.01 Morbid (severe) obesity due to excess calories; G89.29 Other chronic pain; I10 Essential (primary) hypertension; K29.70 Gastritis, unspecified, without bleeding; K52.9 Noninfective gastroenteritis and colitis, unspecified; K63.5 Polyp of colon; M19.90 Unspecified osteoarthritis, unspecified site; G47.33 Obstructive sleep apnea (adult) (pediatric); M54.9 Dorsalgia, unspecified; R16.1 Splenomegaly, not elsewhere classified; K44.9 Diaphragmatic hernia without obstruction or gangrene; Z79.82 Long term (current) use of aspirin; Z79.84 Long term (current) use of oral hypoglycemic drugs; Z79.899 Other long term (current) drug therapy; Z98.84 Bariatric surgery status; Z96.652 Presence of left artificial knee joint; Z87.891 Personal history of nicotine dependence; Z90.49 Acquired absence of other specified parts of digestive tract; Z82.49 Family history of ischemic heart disease and other diseases of the circulatory system; Z83.3 Family history of diabetes mellitus; Z80.42 Family history of malignant neoplasm of prostate
CPT/HCPCS: 36415; 43239; 45380; 45385; 74177; 74240; 74248; 80048; 80053; 81001; 82150; 83605; 83690; 83735; 84484; 85025; 85652; 86140; 88305; 93005; 96374; 96375; 99285

== ENCOUNTER 2020-04-24 01:18 | Emergency (ER) | payer BC ==
[2020-04-24 01:26] VITALS: TEMP 98.5
--- NOTE | 2020-04-24 02:06 | ED ---
Skin/Abscess/FB HPI - General Chief complaint: Skin/Abscess/Foreign Body Stated complaint: L LEG PAIN Time Seen by Provider: 04/24/20 01:28 Source: patient Mode of arrival: wheelchair Limitations: no limitations - History of Present Illness MD complaint: other Onset/Timin -: days(s) Tetanus Up to Date: yes Location: LLE Severity: moderate Quality: burning, sharp Consistency: constant Improves with: none Worsens with: palpation Context: none Associated symptoms: denies other symptoms Treatments Prior to Arrival: none - Related Data Home Medications Medication Instructions Recorded Confirmed Aspirin [Adult Low Dose Aspirin EC] 81 mg PO HS 04/19/17 09/27/19 Gabapentin [Neurontin] 400 mg PO QID 04/19/17 09/27/19 Atorvastatin [Lipitor] 20 mg PO DAILY 09/14/18 09/27/19 metFORMIN HCL [metFORMIN HCL ER] 750 mg PO HS 09/14/18 09/27/19 HYDROcodone/APAP 7.5-325MG [[place] 1 tab PO HS PRN 09/27/19 09/27/19 7.5-325] Valsartan 80 mg PO DAILY 09/27/19 09/27/19 Previous Rx's Medication Instructions Recorded Cephalexin [Keflex] 500 mg PO Q6HR #28 cap 04/24/20 Allergies Allergy/AdvReac Type Severity Reaction Status Date / Time No Known Allergies Allergy Verified 04/24/20 01:26 Review of Systems ROS Statement: Those systems with pertinent positive or pertinent negative responses have been documented in the HPI. ROS Other: All systems not noted in ROS Statement are negative. Constitutional: Denies: fever, chills Respiratory: Denies: cough, dyspnea Cardiovascular: Reports: edema (Chronic). Denies: chest pain Gastrointestinal: Denies: abdominal pain, vomiting Genitourinary: Denies: dysuria Musculoskeletal: Denies: back pain Skin: Reports: as per HPI, lesions Past Medical History Past Medical History: Diabetes Mellitus, Hypertension, Osteoarthritis (OA), Sleep Apnea/CPAP/BIPAP Additional Past Medical History / Comment(s): chronic back pain, wound to L foot, cellutitis multiple times in LLE History of Any Multi-Drug Resistant Organisms: None Reported Past Surgical History: Appendectomy, Back Surgery, Cholecystectomy Additional Past Surgical History / Comment(s): finger surgery, carpal tunnel surgery, L KNEE REPLACEMENT 2010, lap band Past Anesthesia/Blood Transfusion Reactions: No Reported Reaction Past Psychological History: No Psychological Hx Reported Smoking Status: Former smoker Past Alcohol Use History: Rare Past Drug Use History: None Reported - Past Family History Mother Family Medical History: Coronary Artery Disease (CAD), Diabetes Mellitus Father Family Medical History: Coronary Artery Disease (CAD) Brother(s) Family Medical History: Coronary Artery Disease (CAD) Additional Family Medical History / Comment(s): PROSTATE CANCER General Exam Limitations: no limitations General appearance: alert, in no apparent distress Head exam: Present: atraumatic, normocephalic Eye exam: Present: normal appearance. Absent: scleral icterus, conjunctival injection Respiratory exam: Present: normal lung sounds bilaterally. Absent: respiratory distress, wheezes, rales, rhonchi, stridor Cardiovascular Exam: Present: regular rate, normal rhythm, normal heart sounds. Absent: systolic murmur, diastolic murmur, rubs, gallop GI/Abdominal exam: Present: soft. Absent: tenderness Skin exam: Present: warm, dry, intact, normal color, other (Patient has stasis changes to the bilateral legs. There is an ulceration to the lateral aspect of the left leg approximately 2 x 3 cm. There is some clear weeping. No evidence of secondary infection). Absent: rash Course Vital Signs 04/24/20 01:23 Temperature 98.5 F Pulse Rate 70 Respiratory 18 Rate Blood Pressure 158/77 O2 Sat by Pulse 97 Oximetry Medical Decision Making - Lab Data Result diagrams: 04/24/20 02:19 04/24/20 01:59 Lab Results 04/24/20 04/24/20 Range/Units 01:59 02:19 WBC 6.3 (3.8-10.6) k/uL RBC 4.89 (4.30-5.90) m/uL Hgb 14.8 (13.0-17.5) gm/dL Hct 44.7 (39.0-53.0) % MCV 91.4 (80.0-100.0) fL MCH 30.3 (25.0-35.0) pg MCHC 33.2 (31.0-37.0) g/dL RDW 13.6 (11.5-15.5) % Plt Count 97 L (150-450) k/uL Neutrophils % 71 % Lymphocytes % 16 % Monocytes % 7 % Eosinophils % 4 % Basophils % 1 % Neutrophils # 4.4 (1.3-7.7) k/uL Lymphocytes # 1.0 (1.0-4.8) k/uL Monocytes # 0.4 (0-1.0) k/uL Eosinophils # 0.2 (0-0.7) k/uL Basophils # 0.0 (0-0.2) k/uL Manual Slide Review Performed Large Platelets Present Sodium 135 L (137-145) mmol/L Potassium 4.2 (3.5-5.1) mmol/L Chloride 106 (98-107) mmol/L Carbon Dioxide 23 (22-30) mmol/L Anion Gap 6 mmol/L BUN 16 (9-20) mg/dL Creatinine 0.79 (0.66-1.25) mg/dL Est GFR (CKD-EPI)AfAm >90 (>60 ml/min/1.73 sqM) Est GFR (CKD-EPI)NonAf >90 (>60 ml/min/1.73 sqM) Glucose 116 H (74-99) mg/dL Calcium 8.4 (8.4-10.2) mg/dL Acetone, Qual Negative (Negative) Disposition Clinical Impression: Venous stasis ulcer of ankle Disposition: HOME SELF-CARE Condition: Good Instructions (If sedation given, give patient instructions): Stasis Dermatitis (ED) Additional Instructions: As we discussed, follow with the wound care clinic. Prescriptions: Cephalexin [Keflex] 500 mg PO Q6HR #28 cap Is patient prescribed a controlled substance at d/c from ED?: No Referrals: Roseanne Maxwell MD [Primary Care Provider] - 1-2 days
[2020-04-24 02:19] LABS: African American GFR (CKD) >90 (>60 ml/min/1.73 sqM); Anion Gap 6 mmol/L; Blood Urea Nitrogen 16 mg/dL (9-20); Calcium 8.4 mg/dL (8.4-10.2); Carbon Dioxide 23 mmol/L (22-30); Chloride 106 mmol/L (98-107); Glucose 116 mg/dL (74-99); Non-African American GFR(CKD) >90 (>60 ml/min/1.73 sqM); Potassium 4.2 mmol/L (3.5-5.1); Sodium 135 mmol/L (137-145)
[2020-04-24 02:36] LABS: Basophils % (A) 1 %; Eosinophils # (A) 0.2 k/uL (0-0.7); Eosinophils % (A) 4 %; HCT 44.7 % (39.0-53.0); HGB 14.8 gm/dL (13.0-17.5); Lymphocytes % (A) 16 %; MCH 30.3 pg (25.0-35.0); MCHC 33.2 g/dL (31.0-37.0); MCV 91.4 fL (80.0-100.0); Mean Platelet Volume 11.1; Monocytes # (A) 0.4 k/uL (0-1.0); Monocytes % (A) 7 %; Neutrophils # (A) 4.4 k/uL (1.3-7.7); Neutrophils % (A) 71 %; RBC 4.89 m/uL (4.30-5.90); RDW 13.6 % (11.5-15.5); WBC 6.3 k/uL (3.8-10.6)
[2020-04-24] MEDS ORDERED: BACITRACIN OINT 1 EACH PACKET TOPICAL ONE (02:57)
[2020-04-24 03:13] LABS: Large Platelets Present; Platelet Count 97 k/uL (150-450)
[2020-04-24] MEDS ORDERED: CEPHALEXIN 500 MG CAP PO STA (03:29)
[2020-04-24] MEDS ORDERED: MORPHINE SULFATE 4 MG/ML SYRINGE IV STA (03:34)
[2020-04-24] MEDS ORDERED: KETOROLAC 15 MG/ML 1 ML VIAL IVP STA (03:34)
[2020-04-24 08:07] VITALS: BP 118/66; PULSE 64; RESP 16
== END 2020-04-24 04:04 | disposition home or self-care (01) ==
LOC: EC 01:18
DX: I87.2 Venous insufficiency (chronic) (peripheral) (principal); E11.622 Type 2 diabetes mellitus with other skin ulcer; L97.329 Non-pressure chronic ulcer of left ankle with unspecified severity; M19.90 Unspecified osteoarthritis, unspecified site; G47.30 Sleep apnea, unspecified; G89.29 Other chronic pain; M54.9 Dorsalgia, unspecified; Z79.84 Long term (current) use of oral hypoglycemic drugs; Z79.82 Long term (current) use of aspirin; Z79.899 Other long term (current) drug therapy; Z87.891 Personal history of nicotine dependence; Z96.652 Presence of left artificial knee joint; Z99.89 Dependence on other enabling machines and devices
CPT/HCPCS: 36415; 80048; 82009; 85025; 99283; 96374; 96375; J2270; J1885

== ENCOUNTER → 2020-08-27 | Outpatient (CLI) | payer BC | LOC: LABWHC1 14:16 | PROVIDERS: ATTEND Internal Medicine | DX: Z20.828 Contact with and (suspected) exposure to other viral communicable diseases (principal); R05 Cough; M54.9 Dorsalgia, unspecified | CPT/HCPCS: U0003; C9803 ==

== ENCOUNTER → 2020-10-10 | Outpatient (CLI) | payer BC ==
[2020-10-10 19:20] LABS: Basophils # (A) 0.03 X 10*3/uL (0.00-0.10); Basophils % (A) 0.5 %; Eosinophils # (A) 0.31 X 10*3/uL (0.04-0.35); Eosinophils % (A) 5.4 %; HCT 43.8 % (39.6-50.0); HGB 14.2 g/dL (13.0-17.0); Lymphocytes % (A) 17.5 %; MCH 29.6 pg (27.0-32.0); MCHC 32.4 g/dL (32.0-37.0); MCV 91.4 fL (80.0-97.0); Mean Platelet Volume 11.2 fL (9.5-12.2); Monocytes # (A) 0.54 X 10*3/uL (0.20-1.00); Monocytes % (A) 9.5 %; Neutrophils # (A) 3.81 X 10*3/uL (1.80-7.70); Neutrophils % (A) 66.9 %; Platelet Count 102 X 10*3/uL (140-440); RBC 4.79 X 10*6/uL (4.40-5.60)
[2020-10-10 22:53] LABS: African American GFR (CKD) 109.4 (60.0-200.0); Albumin 4.1 g/dL (3.80-4.90); Albumin/Globulin Ratio 1.58 (1.60-3.17); Anion Gap 9.6 mmol/L (4.00-12.00); Calcium 8.8 mg/dL (8.7-10.3); Carbon Dioxide 23.4 mmol/L (21.6-31.8); Globulin 2.6 g/dL (1.6-3.3); Non-African American GFR(CKD) 94.4 (60.0-200.0); Potassium 4.4 mmol/L (3.5-5.5); Total Protein 6.7 g/dL (6.2-8.2)
== END | disposition home or self-care (01) ==
LOC: LABWHC1 14:34
PROVIDERS: ATTEND Thoracic Surgery (Cardiothoracic Vascular Surgery)
DX: E11.622 Type 2 diabetes mellitus with other skin ulcer (principal); L97.222 Non-pressure chronic ulcer of left calf with fat layer exposed; I87.332 Chronic venous hypertension (idiopathic) with ulcer and inflammation of left lower extremity
CPT/HCPCS: 36415; 80053; 83036; 84134; 85025

== ENCOUNTER → 2022-08-24 | Outpatient (CLI) | payer MEDICARE ==
--- NOTE | 2022-08-24 15:30 | XR ---
EXAMINATION TYPE: XR Hip Complete LT, XR femur LT DATE OF EXAM: 08/24/2022 CLINICAL HISTORY: Left hip and femur pain. TECHNIQUE: AP and frogleg views of the left hip are obtained. 2 views left femur. COMPARISON: None. FINDINGS: There is no acute fracture/dislocation evident in the left hip. Mild to moderate axial nilay nt space loss and acetabular spurring is present. The overlying soft tissue appears unremarkable. Images of the left femur show no acute displaced fracture. Metallic hardware from total left knee art hroplasty is satisfactory in position on images obtained. Overlying soft tissue is unremarkable. IMPRESSION: As above.
== END | disposition home or self-care (01) ==
LOC: RADXRYALE 14:53
PROVIDERS: ATTEND Internal Medicine
DX: M25.552 Pain in left hip (principal); M79.652 Pain in left thigh; Z96.652 Presence of left artificial knee joint
CPT/HCPCS: 73502

== ENCOUNTER → 2023-02-02 | Outpatient (CLI) | payer MEDICARE ==
[2023-02-02 11:33] LABS: Basophils % (A) 1 %; Eosinophils # (A) 0.2 k/uL (0-0.7); Eosinophils % (A) 5 %; HCT 40.5 % (39.0-53.0); Lymphocytes # (A) 0.5 k/uL (1.0-4.8); Lymphocytes % (A) 15 %; MCH 30.4 pg (25.0-35.0); MCHC 32.2 g/dL (31.0-37.0); MCV 94.5 fL (80.0-100.0); Mean Platelet Volume 8.5; Monocytes # (A) 0.2 k/uL (0-1.0); Monocytes % (A) 7 %; Neutrophils # (A) 2.3 k/uL (1.3-7.7); Neutrophils % (A) 71 %; RBC 4.28 m/uL (4.30-5.90); RDW 14.4 % (11.5-15.5); WBC 3.2 k/uL (3.8-10.6)
[2023-02-02 11:45] LABS: INR 1.4 (<1.2); Prothrombin Time 14.3 sec (9.0-12.0)
[2023-02-02 12:24] LABS: Platelet Count 83 k/uL (150-450)
[2023-02-02 12:43] LABS: ALT 17 U/L (4-49); AST 28 U/L (17-59); African American GFR (CKD) >90 (>60 ml/min/1.73 sqM); Albumin 3.5 g/dL (3.5-5.0); Alkaline Phosphatase 91 U/L (38-126); Anion Gap 8 mmol/L; Blood Urea Nitrogen 13 mg/dL (9-20); Calcium 8.3 mg/dL (8.4-10.2); Carbon Dioxide 25 mmol/L (22-30); Chloride 107 mmol/L (98-107); Globulin 3.5 g/dL; Glucose 102 mg/dL (74-99); Non-African American GFR(CKD) >90 (>60 ml/min/1.73 sqM); Sodium 140 mmol/L (137-145); Total Bilirubin 2.1 mg/dL (0.2-1.3)
[2023-02-02 16:23] LABS: Alpha Fetoprotein, Tumor Mkr <1.82 ng/mL (0.00-7.90)
[2023-02-02 20:32] LABS: Gliadin AB IgA, Deaminated NEGATIVE (NEGATIVE); Gliadin AB IgA, Unit <0.2 U/mL; Gliadin AB IgG, Deaminated NEGATIVE (NEGATIVE); Gliadin AB IgG, Unit 1.3 U/mL
== END | disposition home or self-care (01) ==
LOC: LABWHC1 10:19
PROVIDERS: ATTEND Internal Medicine Gastroenterology
DX: K70.30 Alcoholic cirrhosis of liver without ascites (principal); K52.9 Noninfective gastroenteritis and colitis, unspecified
CPT/HCPCS: 36415; 80053; 82105; 83516; 85025; 85610

== ENCOUNTER 2023-02-09 09:43 | Day surgery (SDC) | payer MEDICARE ==
[2023-02-08 10:31] VITALS: BMI 55.9
[2023-02-09 11:21] VITALS: TEMP 97.6
[2023-02-09] MEDS ORDERED: LACTATED RINGERS 1,000 ML IV ONE (11:23)
[2023-02-09 11:27] LABS: Glucose,Whole Blood 105 mg/dL (70-110)
[2023-02-09] MEDS ORDERED: LIDOCAINE 2% INJ 20 MG/ML (2 ML VIAL) ONE (11:50)
[2023-02-09] MEDS ORDERED: fentaNYL (PF) 50 MCG/ML 2 ML AMP ONE (11:50)
[2023-02-09] MEDS ORDERED: MIDAZOLAM 2 MG/2 ML VIAL ONE (11:50)
[2023-02-09] MEDS ORDERED: PROPOFOL 10 MG/ML 20 ML VIAL IV ONE (11:50)
--- NOTE | 2023-02-09 12:12 | P.PCN ---
Date of Procedure: 02/09/23 Procedure(s) Performed: Brief history: Patient is a pleasant 68-year-old white male scheduled for an elective upper endoscopy as well as colonoscopy as a part of evaluation of recently related to fatty liver disease/screening for esophageal varices and evaluation of chronic diarrhea. Procedure performed: Esophagogastroduodenoscopy with biopsy Colonoscopy with biopsy and snare polypectomy Preoperative: Liver cirrhosis/Fatty liver disease/screening for esophageal varices Chronic diarrhea Anesthesia: MAC Procedure: After informed consent was obtained from the patient was brought into the endoscopy unit and IV sedation was administered by anesthesia under continuous monitoring. Initially upper endoscopy was done. The Olympus GF 160 video endoscope was inserted inserted into the mouth and esophagus intubated without any difficulty and was gradually advanced into the stomach and duodenum and carefully examined. The bulb and second part of the duodenum appeared normal. Biopsies were done from the duodenum to rule out celiac disease. The scope was then withdrawn into the stomach adequately insufflated with air and upon careful examination the antrum and body, cardia and fundus appeared intact matters with congestion appearing mucosa consistent with moderate to severe portal hyp ertensive gastropathy. On retroflexion there were GE junction varices identified. The scope was then withdrawn into the esophagus. The GE junction was located at 40 cm to the incisors. It appeared regular with no erythema erosions or ulcerations. Large mid and distal esophageal varices. Rest of the esophagus appeared normal. Patient tolerated the procedure well. At this time the patient continued to remain sedation. Initial digital rectal examination was normal. Olympus CF 160 video colonoscope was then inserted into the rectum and gradually advanced to the cecum without any difficulty. Careful examination was performed as the scope was gradually being withdrawn. The prep was excellent. The cecum, ascending colon, we normal. The transverse colon there was 2 polyps measuring 4-5 mm in size removed by snare polypectomy. Rest of the transverse colon, descending colon, sigmoid colon and rectum appeared normal. In the rectum there were 3 polyps measuring between 3 mm, 4 mm and 5 mm in size removed by snare polypectomy. Random biopsies were done from ascending and descending colon to rule out metastatic/collagenous colitis Retroflexion was performed in the rectum and no lesions were noted. Patient tolerated the procedure well. Impression: 1. Upper endoscopy revealed large mid and distal esophageal varices, GE junction varices and the severe portal hypertensive gastropathy 2. Colonoscopy revealed 5 mm 2 transverse colon polyps, 3 mm, 4 mm and a 5 mm rectal polyp status post polypectomy Recommendations: Findings of this examination were discussed with the patient as well as is family. He was advised to follow with the biopsy results. He'll be seen in office in 3-4 weeks.
[2023-02-09] MEDS ORDERED: KETOROLAC 15 MG/ML 1 ML VIAL ONE (13:03)
[2023-02-09 13:13] VITALS: BP 134/76; PULSE 64; RESP 16
== END 2023-02-09 15:34 | disposition home or self-care (01) ==
LOC: CANPRESDC → ORWHC2ENDO 09:43
PROVIDERS: ATTEND Internal Medicine Gastroenterology
DX: D12.3 Benign neoplasm of transverse colon (principal); K62.1 Rectal polyp; K52.9 Noninfective gastroenteritis and colitis, unspecified; I85.00 Esophageal varices without bleeding; K74.60 Unspecified cirrhosis of liver; K31.89 Other diseases of stomach and duodenum; I10 Essential (primary) hypertension; E11.9 Type 2 diabetes mellitus without complications; E78.5 Hyperlipidemia, unspecified; G47.33 Obstructive sleep apnea (adult) (pediatric); E66.01 Morbid (severe) obesity due to excess calories; Z79.899 Other long term (current) drug therapy; Z68.35 Body mass index [BMI] 35.0-35.9, adult; Z98.890 Other specified postprocedural states
CPT/HCPCS: 88305; 45380; 45385; 43239; J2250; J3010; J1885; J2704; J2001

== ENCOUNTER → 2023-07-19 | Outpatient (CLI) | payer MEDICARE ==
[2023-07-19 16:52] LABS: HCT 45.5 % (39.6-50.0); HGB 15.1 g/dL (13.0-17.0); MCH 30.6 pg (27.0-32.0); MCHC 33.2 g/dL (32.0-37.0); MCV 92.3 FL (80.0-97.0); Mean Platelet Volume 11.7 FL (9.5-12.2); NRBC Per 100 WBC 0 X 10*3/uL (0.00-0.01); Platelet Count 104 X 10*3/uL (140-440); RBC 4.93 X 10*6/uL (4.40-5.60); RDW 13.7 % (11.5-14.5); WBC 5.64 X 10*3/uL (4.50-10.00)
[2023-07-19 18:45] LABS: ALT 12 U/L (10-49); AST 19 U/L (14-35); Albumin 3.9 g/dL (3.8-4.9); Alkaline Phosphatase 85 U/L (41-126); BUN/Creat Ratio 16.92 Ratio (12.00-20.00); Blood Urea Nitrogen 20.3 mg/dL (9.0-27.0); Calcium 9.5 mg/dL (8.7-10.3); Carbon Dioxide 26.4 mmol/L (21.6-31.8); Chloride 104 mmol/L (96-109); Glucose 127 mg/dL (70-110); Potassium 4.9 mmol/L (3.5-5.5); Sodium 140 mmol/L (135-145); Total Protein 6.9 g/dL (6.2-8.2)
== END | disposition home or self-care (01) ==
LOC: LABWHC1 09:41
PROVIDERS: ATTEND Internal Medicine Gastroenterology
DX: K74.60 Unspecified cirrhosis of liver (principal)
CPT/HCPCS: 36415; 80053; 82105; 85027

== ENCOUNTER → 2023-07-19 | Outpatient (CLI) | payer MEDICARE ==
--- NOTE | 2023-07-19 10:24 | US ---
EXAMINATION TYPE: US liver DATE OF EXAM: 07/19/2023 COMPARISON: CT 2019 CLINICAL INDICATION: Male, 68 years old with history of K74.60 CIRRHOSIS OF LIVER; TECHNIQUE: Multiple sonographic images of the right upper quadrant are obtained. FINDINGS: EXAM MEASUREMENTS: Liver Length: 15.2 cm CBD: 0.57 cm Right Kidney: 12.4 x 6.3 x 5.4 cm [employer] TE[employer]ER NOTES:Suboptimal study due to patient body habitus Pancreas: Obscured by bowel gas Liver: increased echogenicity; atrophic left lobe with limited visualization Gallbladder: Surgically absent Evidence for sonographic Penn's sign: No CBD: wnl Right Kidney: Cyst-like are with calcifications noted posteriorly - area measured 1.8 x 2.1 x 1.8 cm ; inferior echogenic focus measuring 0.72 cm IMPRESSION: 1. Probable hepatic steatosis with atrophic changes seen of the left hepatic lobe. 2. Complex cystic area with calcifications right kidney. Consider CT correlation.
== END | disposition home or self-care (01) ==
LOC: RADUSWWP 09:29
PROVIDERS: ATTEND Internal Medicine Gastroenterology
DX: K74.60 Unspecified cirrhosis of liver (principal); N28.89 Other specified disorders of kidney and ureter
CPT/HCPCS: 76705

== ENCOUNTER → 2023-08-26 | Outpatient (CLI) | payer MEDICARE ==
--- NOTE | 2023-08-26 15:18 | US ---
EXAMINATION TYPE: US liver DATE OF EXAM: 08/26/2023 COMPARISON: 07/19/2023. CLINICAL INDICATION: Male, 68 years old with history of K74.60 UNSPECIFIED CIRRHOSIS OF LIVER; Patien t denies any signs or symptoms at this time TECHNIQUE: Multiple sonographic images of the right upper quadrant are obtained. FINDINGS: EXAM MEASUREMENTS: Liver Length: 17.7 cm Gallbladder Wall: NA cm CBD: 0.5 cm Right Kidney: 13.3 x 7.2 x 6.0 cm [employer] SPECIALIST NOTES: Pancreas: Tail obscured by overlying bowel gas Liver: Increased attenuation . Suspect cirrhosis. Gallbladder: Surgically absent Evidence for sonographic Penn's sign: No CBD: wnl there is a 2.2 cm hypoechoic area within the Right Kidney: Probable cyst within the interpolar region of the right kidney with a hyperechoic focus along the posterior margin. This measures up to 2.2 cm in diameter. Hyperechoic region measures appr oximately 1.3 cm in diameter and is unchanged.. IMPRESSION: 1. Unchanged complex cystic lesion within the right kidney. CT is recommended for further evaluation. 2. Heterogeneous appearance the liver a small amount of adjacent ascites.
[2023-08-26 18:17] LABS: Basophils # (A) 0.04 X 10*3/uL (0.00-0.10); Basophils % (A) 0.7 %; Eosinophils # (A) 0.35 X 10*3/uL (0.04-0.35); Eosinophils % (A) 6.4 %; HCT 45.1 % (39.6-50.0); HGB 14.8 g/dL (13.0-17.0); Lymphocytes # (A) 0.87 X 10*3/uL (0.90-5.00); Lymphocytes % (A) 15.8 %; MCH 30.3 pg (27.0-32.0); MCHC 32.8 g/dL (32.0-37.0); MCV 92.4 FL (80.0-97.0); Monocytes # (A) 0.51 X 10*3/uL (0.20-1.00); Monocytes % (A) 9.3 %; NRBC Per 100 WBC 0 X 10*3/uL (0.00-0.01); Neutrophils # (A) 3.73 X 10*3/uL (1.80-7.70); Neutrophils % (A) 67.6 %; Platelet Count 84 X 10*3/uL (140-440); RBC 4.88 X 10*6/uL (4.40-5.60); RDW 13.2 % (11.5-14.5); WBC 5.51 X 10*3/uL (4.50-10.00)
[2023-08-26 18:43] LABS: Chol/HDL Ratio 2.66 Ratio; LDL Cholesterol,Calculated 59.3 mg/dL (0.0-131.0)
[2023-08-26 18:44] LABS: ALT 14 U/L (10-49); AST 22 U/L (14-35); Albumin 3.9 g/dL (3.8-4.9); Albumin/Globulin Ratio 1.34 Ratio (1.60-3.17); Alkaline Phosphatase 80 U/L (41-126); BUN/Creat Ratio 14.64 Ratio (12.00-20.00); Blood Urea Nitrogen 16.1 mg/dL (9.0-27.0); Calcium 9.2 mg/dL (8.7-10.3); Carbon Dioxide 25.7 mmol/L (21.6-31.8); Chloride 107 mmol/L (96-109); Globulin 2.9 g/dL (1.6-3.3); Glucose 106 mg/dL (70-110); Potassium 4.7 mmol/L (3.5-5.5); Sodium 142 mmol/L (135-145); Total Bilirubin 1.4 mg/dL (0.3-1.2); Total Protein 6.8 g/dL (6.2-8.2)
[2023-08-27 02:29] LABS: Microalbumin Creatinine Ratio <60 mg/g Cr (0-30); Urine Creatinine 19.9 mg/dL (39.0-259.0)
== END | disposition home or self-care (01) ==
LOC: RADUSWWP 12:55
PROVIDERS: ATTEND Internal Medicine Gastroenterology
DX: Z00.01 Encounter for general adult medical examination with abnormal findings (principal); K74.60 Unspecified cirrhosis of liver; I10 Essential (primary) hypertension; E78.5 Hyperlipidemia, unspecified; E11.59 Type 2 diabetes mellitus with other circulatory complications; R18.8 Other ascites
CPT/HCPCS: 76705; 80053; 80061; 82043; 82105; 82306; 82570; 83036; 85025

== ENCOUNTER → 2023-11-08 | Outpatient (CLI) | payer MEDICARE ==
--- NOTE | 2023-11-08 14:37 | USB ---
Reason for Exam: Clinical finding. Technique: Method: Targeted. Prior Study Comparison: 07/29/2016 Right Diagnostic Ultrasound, [facility]. 07/29/2016 Bilateral Diagnostic Mammogram, [facility]. Findings: The area of palpable concern of the left breast and the retroareolar of the left breast were scanned. Large area of thyroid is felt to reflect a gynecomastia within the retroareolar region of the left breast. No evidence for suspicious mass. Clinical correlation advised.. Overall Assessment: Benign, BI-RAD 2 Electronically signed and approved by: Robby Palacio M.D. Radiologis
--- NOTE | 2023-11-15 14:04 | MM ---
Reason for Exam: Clinical finding. Last mammogram was performed 7 year(s) and 4 month(s) ago. Tissue Density: The breasts are almost entirely fatty. Findings: Analyzed By CAD. Left retroareolar masslike density likely reflects gynecomastia. There may a small amount of gynecomastia right retroareolar region. No spiculated masses or suspicious calcifications. Overall Assessment: Incomplete: need additional imaging evaluation, BI-RAD 0 Management: Diagnostic Breast Ultrasound of the left breast. . Results were given to the patient verbally at the time of exam. Patient should continue monthly self-breast exams. A clinical breast exam by your physician is recommended on an annual basis. This exam should not preclude additional follow-up of suspicious palpable abnormalities. Note on Tiarra scores and lifetime risk: 1. A Tiarra score greater than 3% is considered moderate risk. If this is the case, consider specialist referral to assess eligibility for a risk reducing agent. 2. If overall lifetime risk for the development of breast cancer is 20% or higher, the patient may qualify for future screening with alternating mammogram and breast MRI. Electronically signed and approved by: Robby Palacio M.D. Radiologis
== END | disposition home or self-care (01) ==
LOC: RADMAMWWP 13:56
PROVIDERS: ATTEND Internal Medicine
DX: N63.20 Unspecified lump in the left breast, unspecified quadrant (principal)
CPT/HCPCS: 77066; 76642; G0279; 77062

== ENCOUNTER → 2024-01-03 | Outpatient (CLI) | payer MEDICARE ==
[2024-01-03 10:10] LABS: African American GFR (CKD) >90 (>60 ml/min/1.73 sqM); Blood Urea Nitrogen 21 mg/dL (9-20); Non-African American GFR(CKD) 78 (>60 ml/min/1.73 sqM)
--- NOTE | 2024-01-03 11:41 | CT ---
EXAMINATION TYPE: CT abdomen w con DATE OF EXAM: 01/03/2024 COMPARISON: 09/26/2019 INDICATION: Renal cyst DLP: 2211.2 mGycm, Automated exposure control for dose reduction was used. CONTRAST: 100 mL of Isovue 300. Study performed without Oral Contrast TECHNIQUE: Axial images were obtained from above the diaphragm to the iliac crests in the axial plane at 5 mm thick sections. Reconstructed images are reviewed on the computer in the coronal plane. FINDINGS: Limited CT sections are obtained the lung bases. The lung bases are clear. CT ABDOMEN: LAP-BAND is present. Liver: Normal Spleen: 100 mL present measuring 19.4 cm. Normal less than 12.5 cm. Pancreas: Normal Adrenal glands: The adrenal glands are normal. Gallbladder: Not visualized Kidneys: No masses are evident. No hydronephrosis is present. Several small hypodense areas are on the renal cortex. This would include a 1.3 cm area on the mid anterior right kidney, medial mid left kidney measuring 1.1 cm, posterior lateral mid to inferior pole left kidney measuring 1.4 cm. A new i nferior lateral left kidney measuring 1.0 cm is present. Tiny cortical renal cysts measuring 0.6 cm o n the mid posterior right kidney on delayed images present previously. An exophytic cyst may be on th e right mid lateral renal cortex measuring 1.4 cm.. Delayed images were obtained through the kidneys , which have mildly improved visualization of the suspected cortical renal cysts. These are too small to classify as simple although no significant interval change is evident from prior exam. Aorta: Normal Inferior vena cava: Normal. Loops of bowel within the abdomen and pelvis are normal. There are loops of bowel lacking oral co ntrast or incompletely distended limiting their evaluation. Oral contrast extends to the mid ileum. IMPRESSION: 1. Small cortical renal cyst discussed above. New cortical renal cyst may be at the inferior pole le ft kidney.
== END | disposition home or self-care (01) ==
LOC: RADCTMAIN 09:16
PROVIDERS: ATTEND Internal Medicine
DX: N28.1 Cyst of kidney, acquired (principal)
CPT/HCPCS: 82565; 84520; 74160; 36415; Q9967

== ENCOUNTER → 2024-03-14 | Outpatient (CLI) | payer MEDICARE ==
--- NOTE | 2024-03-14 13:03 | US ---
EXAMINATION TYPE: US liver DATE OF EXAM: 03/14/2024 COMPARISON: 01/03/2024 CLINICAL INDICATION: Male, 69 years old with history of K74.60 UNSPECIFIED CIRRHOSIS OF LIVER; Gb rem loren. Hx ascites per pt TECHNIQUE: Multiple sonographic images of the right upper quadrant are obtained. FINDINGS: EXAM MEASUREMENTS: Liver Length: 16.8 cm Right Kidney: 11.6 x 5.7 x 6.0 cm EDGER OPERATOR NOTES:Suboptimal due to patient body habitus Pancreas: Obscured by bowel gas Liver: Limited, scanned through ribs. Trace fluid seen anterior to liver. Appears heterogenous. L eft lobe hypoechoic lesion = 1.0 x 1.0 x 0.8 cm Gallbladder: Surgically absent Evidence for sonographic Penn's sign: neg CBD: Obscured by overlying bowel gas Right Kidney: mid inferior anterior hypoechoic lesion = 2.1 x 1.9 x 1.5 cm IMPRESSION: Limited scan due to heterogenous liver suggestive of hepatocellular disease such as cirrhosis left he patic lobe lesion which is indeterminate consider MRI liver mass protocol with IV contrast for comple te evaluation
[2024-03-14 17:12] LABS: HCT 43.2 % (39.6-50.0); MCH 31.3 pg (27.0-32.0); MCHC 32.4 g/dL (32.0-37.0); MCV 96.6 FL (80.0-97.0); Mean Platelet Volume 11.2 FL (9.5-12.2); NRBC Per 100 WBC 0 X 10*3/uL (0.00-0.01); Platelet Count 102 X 10*3/uL (140-440); RBC 4.47 X 10*6/uL (4.40-5.60); RDW 13.9 % (11.5-14.5); WBC 3.92 X 10*3/uL (4.50-10.00)
[2024-03-14 19:07] LABS: BUN/Creat Ratio 15.42 Ratio (12.00-20.00); Blood Urea Nitrogen 18.5 mg/dL (9.0-27.0); Chloride 105 mmol/L (96-109); Glucose 126 mg/dL (70-110); Potassium 4.5 mmol/L (3.5-5.5); Sodium 139 mmol/L (135-145)
[2024-03-14 19:08] LABS: ALT 22 U/L (10-49); AST 29 U/L (14-35); Albumin 3.8 g/dL (3.8-4.9); Albumin/Globulin Ratio 1.41 Ratio (1.60-3.17); Alkaline Phosphatase 85 U/L (41-126); Calcium 8.8 mg/dL (8.7-10.3); Carbon Dioxide 20.3 mmol/L (21.6-31.8); Globulin 2.7 g/dL (1.6-3.3); Total Bilirubin 1.1 mg/dL (0.3-1.2); Total Protein 6.5 g/dL (6.2-8.2)
== END | disposition home or self-care (01) ==
LOC: RADUSWWP 10:47
PROVIDERS: ATTEND Internal Medicine Gastroenterology
DX: K76.9 Liver disease, unspecified (principal); K74.60 Unspecified cirrhosis of liver; Z90.49 Acquired absence of other specified parts of digestive tract
CPT/HCPCS: 36415; 76705; 80053; 82105; 85027

== ENCOUNTER → 2024-04-14 | Outpatient (CLI) | payer MEDICARE ==
--- NOTE | 2024-05-04 14:09 | MR ---
Site ID synapse default Patient Piyush Jones A ID [id number] Age/Gender: 69Y, M Order # N/A Procedure MRI LIVER WO CONTRAST Date 04/14/2024 12:36:10 PM EXAMINATION TYPE: MR liver wo con DATE OF EXAM: 04/29/2024 2:36 PM INDICATION: Patient age: Male; 69 year old; Reason for study: Liver disease COMPARISON: Liver ultrasound 03/14/2024, 08/26/2023, 07/19/2023 CT abdomen 01/03/2024, CT abdomen and pe lvis 09/26/2019 TECHNIQUE: Multiplanar multi-sequence imaging was performed of the abdomen without IV contrast. Repo rted could not contrast due to patient's body habitus scanner reporting error when attempting due to tight fit. FINDINGS: Degraded examination due to large body habitus artifact LOWER CHEST: Cardiomegaly. ABDOMEN Liver: Cirrhotic morphology of the liver with surface nodularity and posterior notch sign. No evidenc e for fatty infiltration on out of phase imaging. T2 hyperintense/T1 hypointense right inferior hepat ic lobe 1.1 cm thin-walled lesion (series 301, image 21). Does not seem to enhance on prior CT. No de finitive left hepatic lesion corresponding to ultrasound identified however there is significant chris fact limiting evaluation and lack of intravenous contrast. Gallbladder and Bile ducts: Gallbladder is surgically absent. No gross evidence of biliary duct dilat ation. Pancreas: Grossly unremarkable. Spleen: Enlarged measuring 21.4 cm in AP dimension. Adrenal glands: Grossly unremarkable. Kidneys: No hydronephrosis.. Right anterior mid kidney 1.6 cm and superior pole 0.9 cm T1 hyperintens e lesions likely representing proteinaceous versus hemorrhagic cysts (series 801, image 4 and 26 resp ectively). Additional T2 hyperintense cortical right renal foci likely representing cysts. These lesi ons are poorly evaluated due to lack of intravenous contrast and body habitus artifact. Stomach and Bowel: Postsurgical changes from gastric lap band. No focal wall thickening. Peritoneum: No evidence of pneumoperitoneum. No adenopathy. Trace perihepatic and perisplenic free f luid. Vasculature: Unremarkable. No aortic aneurysm. Abdominal wall: Left anterior mid abdominal wall gastric lap band reservoir. Musculoskeletal: The osseous structures appear intact. IMPRESSION: 1. Significantly limited examination due to patient body habitus artifact and lack of intravenous co ntrast. Essentially nondiagnostic for evaluation of previously questioned left hepatic lobe lesion. A dditionally there is a right hepatic lobe 1.1 cm lesion which may represent a simple cyst however zohreh luation is limited. Consider further evaluation with CT abdomen with IV contrast (liver mass protocol ). 2. Hepatic cirrhosis with portal hypertension with splenomegaly and trace ascites. 3. Few right renal T2 and T1 hyperintense cortical lesions which probably represent simple and hemor rhagic/proteinaceous cyst. Evaluation is limited due to lack of intravenous contrast. This can be zohreh luated on recommendation for #1.
== END | disposition home or self-care (01) ==
LOC: RADMRIMAIN 13:18
PROVIDERS: ATTEND Internal Medicine Gastroenterology
DX: K76.9 Liver disease, unspecified (principal); K76.6 Portal hypertension; K74.60 Unspecified cirrhosis of liver
CPT/HCPCS: 74181

== ENCOUNTER → 2024-05-23 | Outpatient (CLI) | payer MEDICARE ==
[2024-05-23 14:52] LABS: African American GFR (CKD) 84 (>60 ml/min/1.73 sqM); Blood Urea Nitrogen 21 mg/dL (9-20); Non-African American GFR(CKD) 73 (>60 ml/min/1.73 sqM)
--- NOTE | 2024-05-24 13:35 | CT ---
EXAMINATION TYPE: CT abdomen w con CT DLP: 1593 mGycm, Automated exposure control for dose reduction was used. DATE OF EXAM: 05/23/2024 3:42 PM COMPARISON: 04/14/2024 , 03/14/2024. CLINICAL INDICATION: Male, 69 years old with history of K76.9 LIVER DISEASE; Follow up for liver dise ase. Priors in PACS TECHNIQUE: Axial CT abdomen w con;Sagittal and coronal reformats were created on a separate workstat ion. Contrast used:100ml mL of Isovue 300 with IV Contrast, (none if empty) Oral contrast used: with Oral Contrast (none if empty) FINDINGS: LOWER CHEST: Unremarkable ABDOMEN LIVER: Subtle nodular contour to liver with caudate lobe hypertrophy. No suspicious mass on this sing le phase study. GALLBLADDER AND BILE DUCTS: Gallbladder appears surgically absent. PANCREAS: Unremarkable. SPLEEN: Enlarged measuring up to 20.2 cm. ADRENAL GLANDS: Unremarkable. KIDNEYS AND URETERS: No evidence of hydronephrosis or renal calculus. The ureters are unremarkable. Simple appearing bilateral renal cysts. PELVIS BLADDER: Unremarkable REPRODUCTIVE: Unremarkable. ABDOMEN & PELVIS STOMACH AND BOWEL: No evidence of bowel obstruction. Gastric lap band is present PERITONEUM/RETROPERITONEUM: No evidence of pneumoperitoneum. Small amount of free fluid throughout th e abdomen. VASCULATURE: No evidence of aortic aneurysm. MUSCULOSKELETAL: No acute osseous abnormalities LYMPH NODES: No gross evidence for lymphadenopathy. SOFT TISSUE/ABDOMINAL WALL: Unremarkable IMPRESSION: 1. Evidence of hepatic cirrhosis with portal hypertension with splenic megaly and abdominal ascites. No definitive masses visualized in the liver on this single phase liver study. 2. Simple appearing bilateral renal cysts. [facility], , 05/24/2024 1:33 PM
== END | disposition home or self-care (01) ==
LOC: RADCTMAIN 13:45
PROVIDERS: ATTEND Internal Medicine Gastroenterology
DX: K76.9 Liver disease, unspecified
CPT/HCPCS: 36415; 74160; 82565; 84520

== ENCOUNTER 2024-05-26 12:50 | Day surgery (SDC) | payer MEDICARE ==
[2024-05-24 11:29] VITALS: BMI 52.4
[2024-05-26 13:28] VITALS: TEMP 98
[2024-05-26] MEDS: LACTATED RINGERS 1,000 ML IV SCH (13:38)
[2024-05-26 13:42] LABS: Glucose,Whole Blood 92 mg/dL (70-110)
[2024-05-26] MEDS ORDERED: LIDOCAINE 2% (PF) 20 MG/ML 5 ML VIAL ONE (15:08)
[2024-05-26] MEDS ORDERED: PROPOFOL 10 MG/ML 20 ML VIAL IV ONE (15:08)
[2024-05-26] MEDS ORDERED: fentaNYL (PF) 50 MCG/ML 2 ML AMP ONE (15:08)
--- NOTE | 2024-05-26 15:40 | P.PCN ---
Date of Procedure: 05/26/24 Procedure(s) Performed: BRIEF HISTORY: Patient is a 61-year-old, pleasant, white male scheduled for an upper endoscopy as part of follow-up esophageal varices. Patient with history of nonalcoholic cirrhosis of the liver diagnosed 2 years ago. Last EGD with ligation was done in November 2023.. PROCEDURE PERFORMED: Esophagogastroduodenoscopy variceal ligation. PREOPERATIVE DIAGNOSIS: Follow-up large esophageal varices. IV sedation per anesthesia. PROCEDURE: After informed consent was obtained, the patient was brought into the endoscopy unit. IV sedation was administered by Anesthesia under continuous monitoring. Initially the Olympus GIF-140 video endoscope was inserted into the mouth. Esophagus intubated without any difficulty. It was gradually advanced into the stomach and duodenum and carefully examined. The bulb and the second part of the duodenum appeared normal. The scope at this time was withdrawn to the stomach, adequately insufflated with air, and upon careful examination, mucosa of the antrum, body, cardia and the fundus, had changes consistent with portal hypertensive gastropathy. There were large mid and distal esophageal varices identified. The scope was withdrawn from the esophagus. The variceal ligation equipment was introduced to the tip of the scope and esophagus intubated without any difficulty and gradually advanced into the distal esophagus. Using suction total of 5 bands were deployed in the distal and mid esophageal varices and the patient tolerated the procedure well. IMPRESSION: 1. Large mid and distal esophageal varices status post variceal ligation and total of 5 bands were deployed. 2. Moderate portal hypertensive gastropathy. RECOMMENDATIONS: The findings of this examination were discussed with the patient as well as his family. He will remain on soft diet today. Will plan a repeat upper endoscopy with variceal ligation in 6 months..
[2024-05-26 16:06] VITALS: BP 112/75; PULSE 59; RESP 16
== END 2024-05-26 16:28 | disposition home or self-care (01) ==
LOC: ORWHC2ENDO 12:50
PROVIDERS: ATTEND Internal Medicine Gastroenterology
DX: I85.00 Esophageal varices without bleeding
CPT/HCPCS: 43244

== ENCOUNTER 2024-09-08 16:58 | Emergency (ER) | payer MEDICARE ==
--- NOTE | 2024-09-08 17:29 | ED ---
Abdominal Pain HPI <Debbie Shook - Last Filed: 09/08/24 17:28> <Nichelle Sherman - Last Filed: 09/12/24 20:02> - General Stated Complaint: hernia Time Seen by Provider: 09/08/24 17:28 - History of Present Illness Initial Comments: Quick [id number] male presenting for umbilical hernia. States he has a known umbilical hernia for the past 3 years, however has been increasing in pain and firmness. States he saw his PCP today who sent him to the ER for further evaluation. (Debbie Shook) Patient is a 69-year-old gentleman with a past medical history of nonalcoholic liver cirrhosis, diabetes, hypertension presenting today for abdominal pain. Patient states over the last 3 to 4 days is umbilical hernia has been more swollen and nonreducible. Typically is reducible. Endorses lower abdominal pain and firmness. Sent by his PCP for further evaluation. No prior abdominal surgeries. Does have paracentesis performed by Dr. Espinosa, none recent. Denies fever, nausea, vomiting, chest pain, shortness of breath, states he does have chronic intermittent diarrhea, last formed stool was this morning. No black or bloody stools. (Nichelle Sherman) - Related Data Home Medications Medication Instructions Recorded Confirmed Atorvastatin [Lipitor] 10 mg PO HS 09/14/18 05/24/24 Furosemide [Lasix] 40 mg PO DAILY 02/08/23 05/24/24 Spironolactone 100 mg PO DAILY 02/08/23 05/24/24 HYDROcodone/APAP 5-325MG [[place] 1 tab PO TID PRN 11/03/23 05/24/24 5-325] Pioglitazone [Actos] 30 mg PO HS 11/03/23 05/24/24 Propranolol HCl [Inderal] 60 mg PO HS 11/03/23 05/24/24 Allergies Allergy/AdvReac Type Severity Reaction Status Date / Time No Known Allergies Allergy Verified 09/08/24 17:34 Review of Systems ROS Other: All systems not noted in ROS Statement are negative. <Debbie Shook - Last Filed: 09/08/24 17:28> ROS Other: All systems not noted in ROS Statement are negative. <Nichelle Sherman - Last Filed: 09/12/24 20:02> ROS Statement: Those systems with pertinent positive or pertinent negative responses have been documented in the HPI. Past Medical History Past Medical History: Diabetes Mellitus, Hypertension, Osteoarthritis (OA), Sleep Apnea/CPAP/BIPAP Additional Past Medical History / Comment(s): chronic back pain, wound to L foot, cellutitis multiple times in LLE History of Any Multi-Drug Resistant Organisms: MRSA Date of last positivie culture/infection: 11/19/22 MDRO Source:: Left Leg Past Surgical History: Appendectomy, Back Surgery, Cholecystectomy Additional Past Surgical History / Comment(s): finger surgery, carpal tunnel surgery, L KNEE REPLACEMENT 2010, lap band Past Anesthesia/Blood Transfusion Reactions: No Reported Reaction Smoking Status: Former smoker - Past Family History Mother Family Medical History: Coronary Artery Disease (CAD), Diabetes Mellitus Father Family Medical History: Coronary Artery Disease (CAD) Brother(s) Family Medical History: Cancer, Coronary Artery Disease (CAD), Deep Vein Thrombosis (DVT) Additional Family Medical History / Comment(s): PROSTATE CANCER. ANOTHER BROTHER HAD DVT <Debbie Shook - Last Filed: 09/08/24 17:28> General Exam <ShookDebbie - Last Filed: 09/08/24 17:28> <Nichelle Sherman - Last Filed: 09/12/24 20:02> - General Exam Comments Initial Comments: Visual Physical Exam General: Well-appearing, nontoxic, no acute distress. Head: Normocephalic, atraumatic Eyes: PERRLA, EOMI ENT: Airway patent Chest: Nonlabored breathing Skin: No visual rash, normal skin tone Neuro: Alert and oriented 3 Musculoskeletal: No gross abnormalities (Debbie Shook) PE: CONSTITUTIONAL: No apparent distress, well appearing SKIN: Warm, dry, no jaundice, hives or petechiae no erythema overlying the abdomen EYES: Pupils are equally round, extraocular movements intact without nystagmus, clear conjunctiva, non-icteric sclera HENT: Normocephalic, atraumatic, moist mucus membranes, oropharynx clear without exudates NECK: , Full range of motion, normal appearance PULMONARY: Clear to auscultation without wheezes, rhonchi, or rales, normal excursion, no accessory muscle use and no stridor CARDIOVASCULAR: Regular rate, rhythm, normal S1 and S2. No appreciated murmurs, rubs or gallops. Strong radial pulses with intact distal perfusion. Bilateral lower extremity 2+ edema GASTROINTESTINAL: [soft, active bowel sounds throughout, tender throughout the lower aspect of the abdomen, nonreducible umbilical hernia, mildly distended, guarding with palpation of the lower abdomen, exam is limited by patient's body habitus GENITOURINARY: MUSCULOSKELETAL: Extremities have no gross deformity. No calf swelling NEUROLOGIC:_a/o x 3, GCS 15, normal mentation and speech. Moves all extremities x 4 without motor or sensory deficit PSYCHIATRIC:_normal mood and affect, thought process is clear and linear (Nichelle Richmond) Course Vital Signs 09/08/24 09/08/24 09/09/24 17:34 22:45 00:07 Temperature 97.9 F 98.1 F Pulse Rate 55 L 67 62 Respiratory 20 18 19 Rate Blood Pressure 122/58 105/51 112/50 O2 Sat by Pulse 92 L 96 94 L Oximetry Medical Decision Making <Debbie Shook - Last Filed: 09/08/24 17:28> - Lab Data Result diagrams: 09/08/24 17:47 09/08/24 17:47 <Nichelle Sherman - Last Filed: 09/12/24 20:02> - Medical Decision Making I completed the quick note portion of this chart signed Debbie Shook PA-C (Debbie Shook) Was pt. sent in by a medical professional or institution (SHERIE Barrera, GENERAL OFFICE ASSISTANT, urgent care, hospital, or [place] health care facility...) When possible be specific @ Pt sent in by PCP Did you speak to anyone other than the patient for history (EMS, parent, family, police, friend...)? What history was obtained from this source @ -No Did you review nursing and triage notes (agree or disagree)? Why? @ -I reviewed and agree with nursing and triage notes Were old charts reviewed (outside hosp., previous admission, EMS record, old EKG, old radiological studies, urgent care reports/EKG's, [place] health care facility records)? Report findings @ -Medical records reviewed -reviewed procedure note for varicoceal ligation done 05/26/[address] Espinosa Differential Diagnosis (chest pain, altered mental status, abdominal pain women, abdominal pain men, vaginal bleeding, weakness, fever, dyspnea, syncope, headache, dizziness, GI bleed, back pain, seizure, CVA, palpatations, mental hea lth, musculoskeletal)? @Differential diagnosis remains broad however top considerations include SBP, incarcerated umbilical hernia, ascites this is not an all inclusive list EKG interpreted by me (3pts min.). @ -As above X-rays interpreted by me (1pt min.). @ -None done CT interpreted by me (1pt min.). @ Ascites noted, no bowel obtsruction, no free air U/S interpreted by me (1pt. min.). @ -None done What testing was considered but not performed or refused? (CT, X-rays, U/S, labs)? Why? @ -None What meds were considered but not given or refused? Why? @ -None Did you discuss the management of the patient with other professionals (professionals i.e. , PA, GENERAL OFFICE ASSISTANT, lab, RT, psych nurse, clinical social worker, utility helicopter repairer, teacher, restoration officer, case work aide)? Give summary @ -No Was smoking cessation discussed for >3mins.? @ -No Was critical care preformed (if so, how long)? @ -No Were there social determinants of health that impacted care today? How? (Homelessness, low income, unemployed, alcoholism, drug addiction, transportation, low edu. Level, literacy, decrease access to med. care, detention, rehab)? @ -No Was there de-escalation of care discussed even if they declined (Discuss DNR or withdrawal of care, Hospice)? @ -No What co-morbidities impacted this encounter? (DM, HTN, Smoking, COPD, CAD, Cancer, CVA, ARF, Chemo, Hep., AIDS, mental health diagnosis, sleep apnea, morbid obesity)? Obesity, nonalcoholic liver disease Was patient admitted / discharged? Hospital course, mention meds given and route, prescriptions, significant lab abnormalities, going to OR and other pertinent info. @ -Transfer to [facility]- Patient is a 69-year-old, with a past medical history of nonalcoholic liver disease, varices, umbilical hernia presenting today for lower abdominal pain and prominence of his umbilical hernia. Triage labs and imaging were ordered by triage PA. Reviewed labs and imaging,Labs showed no leukocytosis, lactic was 1.3, AST/ALT within normal limits though total bilirubin 2.2 slightly elevated, CT of the abdomen showed "a slightly more prominent anterior fluid in the umbilical hernia that is nonspecific, evidence of cirrhosis underlying portal venous hypertension were seen". Patient was roomed, seen and examined by myself. Complete history obtained and physical exam performed. Lower abdomen is minimally tender, not erythematous/no skin changes with active bowel sounds. Umbilical hernia is not reducible. Based on imaging, it does not appear to be incarcerated. Patient does endorse significant pain. Pain control ordered with IV morphine. After reviewing obtaining history, performing physical exam and reviewing patient's labs and imaging, I discussed with patient admission for paracentesis to ensure improvement in swelling of umbilical hernia and pain. Patient will be started on Rocephin as well to cover for SBP though he is nontoxic-appearing and afebril e and I suspect pain is secondary to amount of ascites present as opposed to infection. Patient agreeable with plan for admission. As we do not have interventional radiology here on the weekends, patient will need to be transferred. Case was discussed with Dr. Perry, emergency medicine, [facility]. He kindly except patient for admission. Updated patient to plan for, risk and benefits of transfer. Patient is agreeable with plan for transfer to [facility]. Patient was transferred in stable condition. Undiagnosed new problem with uncertain prognosis? @ -No Drug Therapy requiring intensive monitoring for toxicity (Heparin, Nitro, Insulin, Cardizem)? @ -No Were any procedures done? @ -No Diagnosis/symptom? @ -Abdominal pain, ascites Acute, or Chronic, or Acute on Chronic? @Acute Uncomplicated (without systemic symptoms) or Complicated (systemic symptoms)? @Uncomplicated Side effects of treatment? @ -No Exacerbation, Progression, or Severe Exacerbation? @ -No Poses a threat to life or bodily function? How? (Chest pain, USA, OR, pneumonia, PE, COPD, DKA, ARF, appy, cholecystitis, CVA, Diverticulitis, Homicidal, Suicidal, threat to staff... and all critical care pts) @ -No (Nichelle Sherman) - Lab Data Lab Results 09/08/24 09/08/24 09/08/24 Range/Units 17:47 17:47 18:15 WBC 4.8 (3.8-10.6) k/uL RBC 4.36 (4.30-5.90) m/uL Hgb 13.8 (13.0-17.5) gm/dL Hct 41.9 (39.0-53.0) % MCV 96.2 (80.0-100.0) fL MCH 31.6 (25.0-35.0) pg MCHC 32.8 (31.0-37.0) g/dL RDW 14.4 (11.5-15.5) % Plt Count 93 L (150-450) k/uL MPV 9.0 Neutrophils % 70 % Lymphocytes % 16 % Monocytes % 8 % Eosinophils % 5 % Basophils % 0 % Neutrophils # 3.4 (1.3-7.7) k/uL Lymphocytes # 0.8 L (1.0-4.8) k/uL Monocytes # 0.4 (0-1.0) k/uL Eosinophils # 0.2 (0-0.7) k/uL Basophils # 0.0 (0-0.2) k/uL Large Platelets Present PT (10.0-12.5) sec INR (<1.2) APTT (22.0-30.0) sec Sodium 138 (137-145) mmol/L Potassium 4.5 (3.5-5.1) mmol/L Chloride 103 (98-107) mmol/L Carbon Dioxide 28 (22-30) mmol/L Anion Gap 7 mmol/L BUN 15 (9-20) mg/dL Creatinine 0.91 (0.66-1.25) mg/dL Est GFR (CKD-EPI)AfAm >90 (>60 ml/min/1.73 sqM) Est GFR (CKD-EPI)NonAf 86 (>60 ml/min/1.73 sqM) Glucose 87 (74-99) mg/dL Plasma Lactic Acid Prasanna 1.3 (0.7-2.0) mmol/L Calcium 9.0 (8.4-10.2) mg/dL Total Bilirubin 2.2 H (0.2-1.3) mg/dL AST 22 (17-59) U/L ALT 13 (4-49) U/L Alkaline Phosphatase 86 (38-126) U/L Total Protein 6.9 (6.3-8.2) g/dL Albumin 3.6 (3.5-5.0) g/dL 09/08/24 Range/Units 22:42 WBC (3.8-10.6) k/uL RBC (4.30-5.90) m/uL Hgb (13.0-17.5) gm/dL Hct (39.0-53.0) % MCV (80.0-100.0) fL MCH (25.0-35.0) pg MCHC (31.0-37.0) g/dL RDW (11.5-15.5) % Plt Count (150-450) k/uL MPV Neutrophils % % Lymphocytes % % Monocytes % % Eosinophils % % Basophils % % Neutrophils # (1.3-7.7) k/uL Lymphocytes # (1.0-4.8) k/uL Monocytes # (0-1.0) k/uL Eosinophils # (0-0.7) k/uL Basophils # (0-0.2) k/uL Large Platelets PT 16.4 H (10.0-12.5) sec INR 1.6 H (<1.2) APTT 25.7 (22.0-30.0) sec Sodium (137-145) mmol/L Potassium (3.5-5.1) mmol/L Chloride (98-107) mmol/L Carbon Dioxide (22-30) mmol/L Anion Gap mmol/L BUN (9-20) mg/dL Creatinine (0.66-1.25) mg/dL Est GFR (CKD-EPI)AfAm (>60 ml/min/1.73 sqM) Est GFR (CKD-EPI)NonAf (>60 ml/min/1.73 sqM) Glucose (74-99) mg/dL Plasma Lactic Acid Prasanna (0.7-2.0) mmol/L Calcium (8.4-10.2) mg/dL Total Bilirubin (0.2-1.3) mg/dL AST (17-59) U/L ALT (4-49) U/L Alkaline Phosphatase (38-126) U/L Total Protein (6.3-8.2) g/dL Albumin (3.5-5.0) g/dL Disposition <Debbie Shook - Last Filed: 09/08/24 17:28> - Out of Hospital Transfer - Req. Specs Out of Hospital Transfer - Requested Specifics: Other Emergency Center ([facility] emergency department) <Nichelle Sherman - Last Filed: 09/12/24 20:02> Clinical Impression: Ascites, Umbilical hernia without obstruction or gangrene Disposition: OTHER INSTITUTION NOT DEFINED Referrals: Roseanne Maxwell MD [Primary Care Provider] - 1-2 days
[2024-09-08 18:21] LABS: Basophils % (A) 0 %; Eosinophils # (A) 0.2 k/uL (0-0.7); Eosinophils % (A) 5 %; HCT 41.9 % (39.0-53.0); HGB 13.8 gm/dL (13.0-17.5); Lymphocytes # (A) 0.8 k/uL (1.0-4.8); Lymphocytes % (A) 16 %; MCH 31.6 pg (25.0-35.0); MCHC 32.8 g/dL (31.0-37.0); MCV 96.2 fL (80.0-100.0); Monocytes # (A) 0.4 k/uL (0-1.0); Monocytes % (A) 8 %; Neutrophils # (A) 3.4 k/uL (1.3-7.7); Neutrophils % (A) 70 %; RBC 4.36 m/uL (4.30-5.90); RDW 14.4 % (11.5-15.5); WBC 4.8 k/uL (3.8-10.6)
[2024-09-08 18:31] LABS: ALT 13 U/L (4-49); AST 22 U/L (17-59); African American GFR (CKD) >90 (>60 ml/min/1.73 sqM); Albumin 3.6 g/dL (3.5-5.0); Alkaline Phosphatase 86 U/L (38-126); Anion Gap 7 mmol/L; Blood Urea Nitrogen 15 mg/dL (9-20); Carbon Dioxide 28 mmol/L (22-30); Chloride 103 mmol/L (98-107); Glucose 87 mg/dL (74-99); Non-African American GFR(CKD) 86 (>60 ml/min/1.73 sqM); Potassium 4.5 mmol/L (3.5-5.1); Sodium 138 mmol/L (137-145); Total Bilirubin 2.2 mg/dL (0.2-1.3); Total Protein 6.9 g/dL (6.3-8.2)
[2024-09-08 18:49] LABS: Large Platelets Present; Platelet Count 93 k/uL (150-450)
--- NOTE | 2024-09-08 19:29 | CT ---
EXAMINATION TYPE: CT abdomen pelvis w con DATE OF EXAM: 09/08/2024 COMPARISON: CT abdomen May 23, 2024 HISTORY: c/o abdominal hernia being sore, hard, warm, and swollen x three days. CT DLP: 4174.4 mGycm, Automated Exposure Control for Dose Reduction was Utilized. CONTRAST: CT scan of the abdomen and pelvis is performed without oral and with IV Contrast, patient injected wi th 100 ml mL of Isovue 300. FINDINGS: LUNG BASES: No significant abnormality is appreciated. LIVER/GB: Heterogeneous small size liver with surrounding ascites redemonstrated. Gallbladder presume d surgically absent. Subcentimeter low-density lesion right hepatic lobe inferiorly axial image 30 re demonstrated favored benign. Small caliber main portal vein again seen. PANCREAS: No significant abnormality is seen. SPLEEN: There is more prominent splenomegaly at 21.9 cm axial image 23. ADRENALS: No significant abnormality is seen. KIDNEYS: Some cortical volume loss bilaterally. Simple cortical cyst right kidney delayed axial image s 47 laterally noted. No hydronephrosis seen bilaterally. BOWEL: A lap band device is redemonstrated. No abnormal small or large bowel dilatation PROSTATE/SEMINAL VESICLES: No gross abnormality seen. LYMPH NODES: No greater than 1cm abdominal or pelvic lymph nodes are appreciated. OSSEOUS STRUCTURES: Multilevel spurring in the thoracolumbar spine redemonstrated. Moderate disc spac e narrowing and vacuum disc phenomenon in the lower lumbar spine. OTHER: Mild ascites in the paracolic gutters bilaterally redemonstrated. Mild to moderate diffuse mes enteric edema redemonstrated. Small umbilical hernia redemonstrated with slightly more prominent ill- defined fluid anteriorly noted. Moderate to large size bilateral inguinal hernias are noted. IMPRESSION: Slightly more prominent anterior fluid in the umbilical hernia is nonspecific. Evidence o f cirrhosis and underlying portal venous hypertension again seen. [facility], , 09/08/2024 7:27 PM
[2024-09-08] MEDS: ONDANSETRON 4 MG/2 ML VIAL IVP STA (22:48)
[2024-09-08] MEDS: ACETAMINOPHEN TAB 325 MG TAB PO STA (22:50)
[2024-09-08 22:57] LABS: INR 1.6 (<1.2); Partial Thromboplastin Time 25.7 sec (22.0-30.0); Prothrombin Time 16.4 sec (10.0-12.5)
[2024-09-08] MEDS: MORPHINE SULFATE 4 MG/ML SYRINGE IVP STA ×2 (23:59)
[2024-09-09 00:10] VITALS: BP 112/50; PULSE 62; RESP 19; TEMP 98.1
== END 2024-09-09 00:10 | disposition other institution (70) ==
LOC: EC 16:58
DX: K42.9 Umbilical hernia without obstruction or gangrene (principal); R18.8 Other ascites; K74.60 Unspecified cirrhosis of liver; K76.6 Portal hypertension; Z87.891 Personal history of nicotine dependence
CPT/HCPCS: 36415; 80053; 83605; 85025; 85610; 85730; 74177; 99285; 96365; 96375 ×2; J2270; J2405; J0696; Q9967

== ENCOUNTER 2024-11-08 08:20 | Day surgery (SDC) | payer MEDICARE ==
[2024-11-08 09:05] VITALS: RESP 16; TEMP 97.6
[2024-11-08] MEDS: IV FLUID CONTINUATION 1,000 ML IV ONE (09:30)
[2024-11-08 09:32] LABS: Glucose,Whole Blood 115 mg/dL (70-110)
[2024-11-08] MEDS ORDERED: LIDOCAINE 1% INJ 10MG/ML (20 ML MDV) ONE (09:42)
[2024-11-08] MEDS ORDERED: PROPOFOL 10 MG/ML 20 ML VIAL IV ONE (09:42)
--- NOTE | 2024-11-08 09:59 | P.PCN ---
Date of Procedure: 11/08/24 Procedure(s) Performed: BRIEF HISTORY: Patient is a 61-year-old, pleasant, white man scope and up endoscopy as a part of additional liver cirrhosis and a history of esophageal varices.. He underwent EGD with variceal ligation in September this year.. PROCEDURE PERFORMED: Esophagogastroduodenoscopy with variceal ligation.. PREOPERATIVE DIAGNOSIS: Follow-up large esophageal varices. IV sedation per anesthesia. PROCEDURE: After informed consent was obtained, the patient was brought into the endoscopy unit. IV sedation was administered by Anesthesia under continuous monitoring. Initially the Olympus GIF-140 video endoscope was inserted into the mouth. Esophagus intubated without any difficulty. It was gradually advanced into the stomach and duodenum and carefully examined. The bulb and the second part of the duodenum appeared normal. The scope at this time was withdrawn to the stomach, adequately insufflated with air, and upon careful examination, mucosa of the antrum, body, cardia and the fundus had congested appearing mucosa consistent with moderate to severe portal hypertensive gastropathy.. The scope was then withdrawn into the esophagus. The GE junction was located at 39 cm from the incisors. There is a medium sized mid and distal esophageal varices identified. The scope was withdrawn and the esophageal variceal ligation equipment was introduced to the tip of the scope and esophagus were intubated without any difficulty and was gradually advanced into the distal esophagus. Total of 4 bands were deployed in the distal and mid esophageal varices seen and the patient tolerated the procedure well. IMPRESSION: 1. Medium sized mid and distal esophageal varices status post variceal ligation as described above. 2. Moderate to severe portal hypertensive gastropathy. RECOMMENDATIONS: The findings of this examination were discussed with the patient as well as his family. He was advised to be on a soft diet. He will continue on Inderal 60 mg daily. Repeat upper endoscopy with variceal ligation in 6 months..
[2024-11-08 10:17] VITALS: BP 113/70; PULSE 72
== END 2024-11-08 10:30 | disposition home or self-care (01) ==
LOC: ORWHC2ENDO 08:20
PROVIDERS: ATTEND Internal Medicine Gastroenterology
DX: I85.10 Secondary esophageal varices without bleeding (principal); K31.89 Other diseases of stomach and duodenum; K74.60 Unspecified cirrhosis of liver; K76.6 Portal hypertension; I10 Essential (primary) hypertension; G47.33 Obstructive sleep apnea (adult) (pediatric); E11.9 Type 2 diabetes mellitus without complications; M19.90 Unspecified osteoarthritis, unspecified site; Z99.89 Dependence on other enabling machines and devices; Z79.899 Other long term (current) drug therapy
CPT/HCPCS: 43244; J2003; J2704

== ENCOUNTER → 2024-11-15 | Outpatient (CLI) | payer MEDICARE ==
--- NOTE | 2024-11-15 11:15 | US ---
EXAMINATION TYPE: US liver DATE OF EXAM: 11/15/2024 COMPARISON: 03/14/24. CT: 09/08/24 CLINICAL INDICATION: Male, 69 years old with history of K74.60 UNSPECIFIED CIRRHOSIS OF LIVER; cirrho sis, cholecystectomy TECHNIQUE: Grayscale and color Doppler imaging of the right upper quadrant was performed. FINDINGS: EXAM MEASUREMENTS: Liver Length: 15.4 cm Gallbladder Wall: Surgically absent CBD: not well visualized Right Kidney: 11.0 x 7.1 x 6.7 cm COOK SEAFOOD NOTES: Pancreas: Obscured by bowel gas Liver: heterogeneous and coarse appearance. Cystic area seen in right lobe measuring 1.0 x 1.1 x 1.1 cm Gallbladder: Surgically absent Evidence for sonographic Penn's sign: No CBD: not well visualized Right Kidney: cystic area seen inf pole measuring 1.8 x 1.5 x 1.6cm IMPRESSION: Hepatic cirrhosis. No suspicious observations. Simple appearing cyst. [facility], , 11/15/2024 11:13 AM
[2024-11-15 15:10] LABS: HCT 48.1 % (39.6-50.0); HGB 15.4 g/dL (13.0-17.0); MCH 30.7 pg (27.0-32.0); NRBC Per 100 WBC 0 X 10*3/uL (0.00-0.01); Platelet Count 98 X 10*3/uL (140-440); RBC 5.01 X 10*6/uL (4.40-5.60); RDW 13.6 % (11.5-14.5); WBC 6.07 X 10*3/uL (4.50-10.00)
[2024-11-15 15:18] LABS: ALT 17 U/L (10-49); AST 28 U/L (14-35); Albumin 3.8 g/dL (3.8-4.9); Albumin/Globulin Ratio 1.27 Ratio (1.60-3.17); Alkaline Phosphatase 105 U/L (41-126); BUN/Creat Ratio 15.69 Ratio (12.00-20.00); Blood Urea Nitrogen 20.4 mg/dL (9.0-27.0); Carbon Dioxide 24.8 mmol/L (21.6-31.8); Chloride 104 mmol/L (96-109); Glucose 123 mg/dL (70-110); Potassium 4.5 mmol/L (3.5-5.5); Sodium 140 mmol/L (135-145); Total Bilirubin 1.1 mg/dL (0.3-1.2); Total Protein 6.8 g/dL (6.2-8.2)
== END | disposition home or self-care (01) ==
LOC: RADUSWWP 09:29
PROVIDERS: ATTEND Internal Medicine Gastroenterology
DX: K74.60 Unspecified cirrhosis of liver (principal); K76.89 Other specified diseases of liver
CPT/HCPCS: 36415; 76705; 80053; 82105; 85027